=== PATIENT | male | born 1945 | race Caucasian/White ===

== ENCOUNTER 2019-04-11 11:19 | Observation (INO) | payer OTHER ==
[2019-04-11 12:31] LABS: Absolute Lymphocytes (CBC) 0.8 K/uL (0.7-4.9); Basophils % 0.9 % (0-1.3); Eosinophils % 0.8 % (0-4.4); Hematocrit 48.4 % (39.6-49.0); Lymphocytes % 7.5 % (15.3-44.8); MPV 9.3 fL (7.6-11.3); Monocytes % 6.2 % (3.3-12.3); RBC Red Blood Cell Count 5.21 M/uL (4.33-5.43)
[2019-04-11 12:44] LABS: Albumin 4.1 g/dL (3.4-5.0); Bilirubin Direct 0.1 mg/dL (0-0.2); Bilirubin Total 0.4 mg/dL (0.2-1.0); Magnesium 2.2 mg/dL (1.8-2.4); Potassium 4.4 mmol/L (3.5-5.1); Protein, Total 7.2 g/dL (6.4-8.2); Troponin (Emerg Dept Use Only) 0.07 ng/mL (0.0-0.045)
--- NOTE | 2019-04-11 13:07 | ER ---
Nurse's Notes [facility] Name: Dashawn Fernandes Jr Age: 73 yrs Sex: Male : 1945 Arrival Date: 04/11/2019 Time: 11:22 Bed 7 Private MD: Diagnosis: Fall on same level, unspecified;Weakness;Elevated troponin Presentation: 04/11 11:27 Presenting complaint: EMS states: pt tripped over a rug at home, fell forward onto iw knees, was unable to get himself up off the floor X 30 minutes, pt was out shopping at [employer] earlier today, normally ambulates with a cane, pt states his legs feel like they're buckling underneath him, pt denies pain to knees, denies hip pain. Care prior to arrival: Glucose check: 193. Mechanism of Injury: Fall from standing position. Trauma event details: Injury occurred in the [facility], Injury occurred: at home. Injury occurred: April 11, 2019. 11:27 Acuity: ADELA 3 iw 11:27 Method Of Arrival: EMS: [facility] iw 11:31 Transition of care: patient was not received from another setting of care. Onset of iw symptoms was April 11, 2019. Risk Assessment: Do you want to hurt yourself or someone else? Patient reports no desire to harm self or others. Initial Sepsis Screen: Does the patient meet any 2 criteria? No. Patient's initial sepsis screen is negative. Does the patient have a suspected source of infection? No. Patient's initial sepsis screen is negative. Triage Assessment: 11:31 General: Appears in no apparent distress. comfortable, Behavior is calm, cooperative, bp appropriate for age. Pain: Denies pain. EENT: No deficits noted. Neuro: Level of Consciousness is awake, alert, obeys commands, Oriented to person, place, time, situation, Appropriate for age Reports weakness GENERALIZED. Cardiovascular: No deficits noted. Respiratory: Airway is patent Respiratory effort is even, unlabored, Respiratory pattern is regular, symmetrical. GI: No signs and/or symptoms were reported involving the gastrointestinal system. : No signs and/or symptoms were reported regarding the genitourinary system. Derm: No deficits noted. Musculoskeletal: No deficits noted. Trauma Activation: Not Applicable Physician: ED Physician; Name: ; Notified At: ; Arrived At: Physician: General Surgeon; Name: ; Notified At: ; Arrived At: Physician: Radiology; Name: ; Notified At: ; Arrived At: Physician: Respiratory; Name: ; Notified At: ; Arrived At: Physician: Lab; Name: ; Notified At: ; Arrived At: Historical: - Allergies: :31 No Known Allergies; iw - Home Meds: 13:09 clopidogrel 75 mg oral tab 1 tab once daily [Active]; Metoprolol Tartrate Oral iw [Active]; Metformin Oral [Active]; Simvastatin Oral [Active]; 13:39 tamsulosin oral oral [Active]; iw - PMHx: 12:21 Diabetes - NIDDM; Hypertension; Myocardial infarction; bp - PSHx: 12:21 Heart stents; bp - Immunization history:: Adult Immunizations up to date. - Social history:: Smoking status: Patient/guardian denies using tobacco. - Ebola Screening: : No symptoms or risks identified at this time. Screenin:10 Abuse screen: Denies threats or abuse. Denies injuries from another. Nutritional bp screening: No deficits noted. Tuberculosis screening: No symptoms or risk factors identified. Fall Risk None identified. Assessment: 11:31 General: SEE TRIAGE NOTE. bp Vital Signs: 11:30 BP 130 / 61; Pulse 90; Resp 16; Temp 98.3; Pulse Ox 95% on R/A; Weight 95.25 kg; Height iw 6 ft. 1 in. (185.42 cm); Pain 0/10; 12:00 BP 127 / 81; Pulse 91; Resp 16; Pulse Ox 95% ; bp 12:17 BP 141 / 83 Supine; Pulse 79; bp 12:20 BP 136 / 77 Sitting; Pulse 86; bp 11:30 Body Mass Index 27.71 (95.25 kg, 185.42 cm) iw [place] Coma Score: 11:30 Eye Response: spontaneous(4). Verbal Response: oriented(5). Motor Response: obeys iw commands(6). Total: 15. Trauma Score (Adult): 11:30 Eye Response: spontaneous(1); Verbal Response: oriented(1); Motor Response: obeys iw commands(2); Systolic BP: > 89 mm Hg(4); Respiratory Rate: 10 to 29 per min(4); [place] Score: 15; Trauma Score: 12 ED Course: 11: Patient arrived in ED. aj 11:23 Gunnar Graf, SOPHIE is PHCP. pm1 11:23 Hardy Tim MD is Attending Physician. pm1 11:30 Triage completed. iw 11:31 Arm band placed on. iw 11:43 Ha Hdz, RN is Primary Nurse. bp 12:07 Inserted saline lock: 20 gauge in right antecubital area, using aseptic technique. bp Blood collected. 12:10 Patient has correct armband on for positive identification. Placed in gown. Bed in low bp position. Call light in reach. Side rails up X2. 12:56 XRAY Chest (1 view) In Process Unspecified. EDMS 13:00 Antonio Guzman DO is Hospitalizing Provider. pm1 13:[address] vm2 13:35 CT completed. Patient tolerated procedure well. Patient moved back from CT. mw3 14:12 No provider procedures requiring assistance completed. Patient admitted, IV remains in bp place. Administered Medications: 13:00 Drug: Aspirin 325 mg Route: PO; bp 14:50 Follow up: Response: No adverse reaction bp 13:00 Drug: Lovenox 1 mg/kg Route: Sub-Q; Site: right lower abdomen; bp 14:50 Follow up: Response: No adverse reaction bp Outcome: 13:06 Decision to Hospitalize by Provider. pm1 14:13 Condition: stable bp 14:13 Instructed on the need for admit. 14:49 Admitted to Tele accompanied by tech, family with patient, via wheelchair, room 430, bp with chart, Report called to CHRYSTAL CHATMAN 15:03 Patient left the ED. bp Signatures: Dispatcher [employer] EDMS Lacey Barahona RN RN aj Williams, Irene, RN RN iw Gunnar Graf, SOPHIE NEWS AGENT pm1 Yen Gordillo vm2 Ha Hdz, LURDES CHATMAN bp Annette Razo mw3 Corrections: (The following items were deleted from the chart) 12:09 11:31 BP 127 / 81; Pulse 91bpm; Resp 16bpm; Pulse Ox 95%; bp bp 13:58 13:00 Lovenox 1 mg/kg Sub-Q in right lower abdomen bp bp
--- NOTE | 2019-04-11 13:08 | EDPHYS ---
Physician Documentation [facility] Name: Dashawn Fernandes Jr Age: 73 yrs Sex: Male : 1945 Arrival Date: 04/11/2019 Time: 11:22 Bed 7 Private MD: ED Physician Hardy Tim HPI: 04/11 11:59 This 73 yrs old Male presents to ER via EMS with complaints of Fall Injury. pm1 11:59 Details of fall: The patient fell from an upright position, while walking. Onset: The pm1 symptoms/episode began/occurred just prior to arrival. Associated injuries: The patient sustained no obvious injury, Patient landed on both knee and stopped his fall with both hands. Patient is not complaining of any pain and FROM intact to knees hands and wrist. Severity of symptoms: in the emergency department the symptoms a " 0" out of "10". The patient has been recently seen by a physician: Dr. Romo for check up. Patient walking at home and fell. Patient is not certain if he tripped on his rug. Patient landed on his knees and stopped fall with hands. No headache, head injury, neck pain, LOC. Patient currently has not complaints of pain. Patient contacted the EMS because he was not able to get up after his fall. Patient had to crawl to the phone. It took him 30 minutes. Patient reports that when he tried to stand up both of his knees would just buckle from weakness. Historical: - Allergies: 11:31 No Known Allergies; iw - Home Meds: 13:09 clopidogrel 75 mg oral tab 1 tab once daily [Active]; Metoprolol Tartrate Oral iw [Active]; Metformin Oral [Active]; Simvastatin Oral [Active]; 13:39 tamsulosin oral oral [Active]; iw - PMHx: 12:21 Diabetes - NIDDM; Hypertension; Myocardial infarction; bp - PSHx: 12:21 Heart stents; bp - Immunization history:: Adult Immunizations up to date. - Social history:: Smoking status: Patient/guardian denies using tobacco. - Ebola Screening: : No symptoms or risks identified at this time. ROS: 12:35 Constitutional: Negative for fever, chills, and weight loss, Eyes: Negative for injury, pm1 pain, redness, and discharge, ENT: Negative for injury, pain, and discharge, Neck: Negative for injury, pain, and swelling, Cardiovascular: Negative for chest pain, palpitations, and edema, Respiratory: Negative for shortness of breath, cough, wheezing, and pleuritic chest pain, Abdomen/GI: Negative for abdominal pain, nausea, vomiting, diarrhea, and constipation, Back: Negative for injury and pain, : Negative for injury, bleeding, discharge, and swelling, MS/Extremity: Negative for injury and deformity, Skin: Negative for injury, rash, and discoloration. 12:35 Neuro: Positive for weakness, of the right knee and left knee. Exam: 12:35 Constitutional: This is a well developed, well nourished patient who is awake, alert, pm1 and in no acute distress. Head/Face: Normocephalic, atraumatic. Eyes: Pupils equal round and reactive to light, extra-ocular motions intact. Lids and lashes normal. Conjunctiva and sclera are non-icteric and not injected. Cornea within normal limits. Periorbital areas with no swelling, redness, or edema. ENT: Nares patent. No nasal discharge, no septal abnormalities noted. Tympanic membranes are normal and external auditory canals are clear. Oropharynx with no redness, swelling, or masses, exudates, or evidence of obstruction, uvula midline. Mucous membranes moist. Neck: Trachea midline, no thyromegaly or masses palpated, and no cervical lymphadenopathy. Supple, full range of motion without nuchal rigidity, or vertebral point tenderness. No Meningismus. Chest/axilla: Normal chest wall appearance and motion. Nontender with no deformity. No lesions are appreciated. Cardiovascular: Regular rate and rhythm with a normal S1 and S2. No gallops, murmurs, or rubs. No pulse deficits. Respiratory: Lungs have equal breath sounds bilaterally, clear to auscultation and percussion. No rales, rhonchi or wheezes noted. No increased work of breathing, no retractions or nasal flaring. Abdomen/GI: Soft, non-tender, with normal bowel sounds. No distension or tympany. No guarding or rebound. No evidence of tenderness throughout. Back: No spinal tenderness. No costovertebral tenderness. Full range of motion. Skin: Warm, dry with normal turgor. Normal color with no rashes, no lesions, and no evidence of cellulitis. MS/ Extremity: Pulses equal, no cyanosis. Neurovascular intact. Full, normal range of motion. 12:35 Neuro: Orientation: is normal, Motor: is normal, moves all fours. Vital Signs: 11:30 BP 130 / 61; Pulse 90; Resp 16; Temp 98.3; Pulse Ox 95% on R/A; Weight 95.25 kg; Height iw 6 ft. 1 in. (185.42 cm); Pain 0/10; 12:00 BP 127 / 81; Pulse 91; Resp 16; Pulse Ox 95% ; bp 12:17 BP 141 / 83 Supine; Pulse 79; bp 12:20 BP 136 / 77 Sitting; Pulse 86; bp 11:30 Body Mass Index 27.71 (95.25 kg, 185.42 cm) iw [place] Coma Score: 11:30 Eye Response: spontaneous(4). Verbal Response: oriented(5). Motor Response: obeys iw commands(6). Total: 15. Trauma Score (Adult): 11:30 Eye Response: spontaneous(1); Verbal Response: oriented(1); Motor Response: obeys iw commands(2); Systolic BP: > 89 mm Hg(4); Respiratory Rate: 10 to 29 per min(4); [place] Score: 15; Trauma Score: 12 MDM: 11:33 Patient medically screened. pm1 12:56 Data reviewed: vital signs. Data interpreted: Pulse oximetry: on room air is 95 %. pm1 Interpretation: normal. Counseling: I had a detailed discussion with the patient and/or guardian regarding: the historical points, exam findings, and any diagnostic results supporting the discharge/admit diagnosis, lab results, radiology results, the need for outpatient follow up, to return to the emergency department if symptoms worsen or persist or if there are any questions or concerns that arise at home. 13:15 Physician consultation: Antonio Guzman DO was called at 13:10, was contacted at 13:12, pm1 regarding admission, patient's condition, would like further tests performed, CPK, in the emergency department to see patient at 13:12, Place in observation. 04/11 11:44 Order name: Basic Metabolic Panel; Complete Time: 12:45 pm1 04/11 11:44 Order name: CBC with Diff; Complete Time: 12:45 pm1 04/11 11:44 Order name: LFT's; Complete Time: 12:45 pm1 04/11 11:44 Order name: Magnesium; Complete Time: 12:45 pm1 04/11 11:44 Order name: NT PRO-BNP; Complete Time: 12:45 pm1 04/11 11:44 Order name: PT-INR; Complete Time: 12:34 pm1 04/11 11:44 Order name: Troponin (emerg Dept Use Only); Complete Time: 12:45 pm04/11 11:44 Order name: XRAY Chest (1 view); Complete Time: 13:13 pm04/11 11:44 Order name: EKG; Complete Time: 11:47 pm04/11 13:12 Order name: CPK; Complete Time: 14:01 pm04/11 13:18 Order name: CT Head Brain wo Cont pm04/11 13:49 Order name: CT; Complete Time: 14:01 EDMS 04/11 11:44 Order name: Cardiac monitoring; Complete Time: 11:46 pm04/11 11:44 Order name: EKG - Nurse/Tech; Complete Time: 12:35 pm04/11 11:44 Order name: IV Saline Lock; Complete Time: 12:20 pm04/11 11:44 Order name: Labs collected and sent; Complete Time: 12:20 pm04/11 11:44 Order name: O2 Per Protocol; Complete Time: 11:46 pm04/11 11:44 Order name: O2 Sat Monitoring; Complete Time: 11:46 pm04/11 11:44 Order name: Orthostatic Blood Pressure; Complete Time: 12:20 pm1 Administered Medications: 13:00 Drug: Aspirin 325 mg Route: PO; bp 14:50 Follow up: Response: No adverse reaction bp 13:00 Drug: Lovenox 1 mg/kg Route: Sub-Q; Site: right lower abdomen; bp 14:50 Follow up: Response: No adverse reaction bp Disposition: 19:00 Co-signature as Attending Physician, Hardy Tim MD. ma2 Disposition: 04/11/19 13:06 Hospitalization ordered by Antonio Guzman for Observation. Preliminary diagnosis are Elevated troponin, Fall on same level, unspecified, Weakness. - Bed requested for Telemetry/MedSurg (observation). - Status is Observation. bp - Condition is Stable. - Problem is new. - Symptoms have improved. UTI on Admission? No Signatures: Dispatcher [employer] Asuncion Downing, RN RN dw Annel Teresa, LURDES RN iw Gunnar Graf, GENERAL CLERK GENERAL CLERK pm1 Ha Hdz, RN RN bp Hardy Tim MD MD ma2 Corrections: (The following items were deleted from the chart) 13:13 13:06 Hospitalization Ordered by Antonio Megan CARD for Inpatient Admission. Preliminary pm1 diagnosis is Non-ST elevation (NSTEMI) myocardial infarctionFall on same level, unspecified; Weakness. Bed requested for Telemetry/MedSurg (Inpatient). Status is Inpatient Admission. Condition is Stable. Problem is new. Symptoms have improved. UTI on Admission? No. pm1 14:11 13:13 04/11/2019 13:06 Hospitalization Ordered by Antoino Megan CARD for Observation. dw Preliminary diagnosis is Elevated troponinFall on same level, unspecified; Weakness. Bed requested for Telemetry/MedSurg (observation). Status is Observation. Condition is Stable. Problem is new. Symptoms have improved. UTI on Admission? No. pm1 15:03 14:11 04/11/2019 13:06 Hospitalization Ordered by [facility] for Observation. bp Preliminary diagnosis is Elevated troponinFall on same level, unspecified; Weakness. Bed requested for Telemetry/MedSurg (observation). Status is Observation. Condition is Stable. Problem is new. Symptoms have improved. UTI on Admission? No. dw
--- NOTE | 2019-04-11 13:12 | RAD REPORT ---
EXAM DESCRIPTION: RAD - Chest Single View - 04/11/2019 12:56 pm CLINICAL HISTORY: Fall, chest pain COMPARISON: November 2011 TECHNIQUE: AP portable chest image was obtained 1211 hours . FINDINGS: Interstitial fibrotic lung pattern is present as a baseline. Pattern is not substantially different. No pulmonary contusion or acute lung parenchymal process suspected. Heart and vasculature are normal. No measurable pleural effusion and no pneumothorax. No acute bone findings seen. Prominen t right convex thoracic scoliosis noted. No acute aortic findings suspected. IMPRESSION: No acute cardiopulmonary process. Interstitial fibrotic lung pattern is similar to comparison.
[2019-04-11] MEDS ORDERED: ASPIRIN 325 MG TAB ONE (13:44)
[2019-04-11] MEDS ORDERED: ENOXAPARIN 100 MG/ML SYR SQ ONE (13:45)
--- NOTE | 2019-04-11 13:48 | RAD REPORT ---
EXAM DESCRIPTION: CT - Head Brain Wo Cont - 04/11/2019 1:34 pm CLINICAL HISTORY: Trip and fall, head injury COMPARISON: Radiation planning study September 2017 TECHNIQUE: Axial 5 mm thick images of the head were obtained without IV contrast. All CT scans are performed using dose optimization technique as appropriate and may include automated exposure control or mA/KV adjustment according to patient size. FINDINGS: No intracranial hemorrhage, mass, edema or shift of mid-line structures. No acute cortical based infarction. No cortical edema or sulcal effacement. Prominent atrophy and chronic ischemic maynor nges are present. Ventricles are in proportion to the amount of volume loss. Arterial and physiologic calcifications are present. There are postsurgical changes to the left mastoid air cells. Mastoid air cells and visualized portions of the paranasal sinuses are clear. No acute bony findings. IMPRESSION: No intracranial hemorrhage or edema. Prominent atrophy and chronic ischemic change. Ventricles are in proportion.
--- NOTE | 2019-04-11 13:53 | P.HP ---
Certification for Inpatient Patient admitted to: Observation With expected LOS: <2 Midnights Patient will require the following post-hospital care: Home Health Services Practitioner: I am a practitioner with admitting privileges, knowledge of patient current condition, hospital course, and medical plan of care. Services: Services provided to patient in accordance with Admission requirements found in Title 42 Section 412.3 of the Code of Federal Regulations Patient History Date of Service: 04/11/19 Primary Care Provider: Dr. Guerrero; Cardiology-Dr. Romo Reason for admission: Fall History of Present Illness: 73-year-old male presented to the emergency room after mechanical fall. Patient had gone to [place] this morning. When he came home he had a mechanical fall. He apparently tripped after shuffling his feet. He was not able to get up. He denied any syncope at the time. He denied any chest pain, nausea, palpitation or shortness of breath. He was able to get a hold of his phone and called EMS. EMS to come to the ER for further evaluation. The patient was evaluated the emergency room. He had some mild bruising to the needs. Orthostatics unremarkable. No significant EKG changes noted. Chest x- ray unremarkable. CBC unremarkable. Sodium 137, potassium 4.4, BUN is 16, creatinine 0.91 with a GFR of 82. Glucose 206. Troponin slightly elevated at 0.07. BNP 352. Due to the nature of findings patient was admitted for observation. When I saw the patient ER, he appeared comfortable. He denied any chest pain, shortness of breath. Patient with underlying CAD with prior stents, diabetes mellitus type 2, BPH, hypertension, tobacco abuse and hyperlipidemia. 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 He currently lives by himself. He is independent. - Family History Family History: Reviewed- Non-Contributory - Social History Smoking Status: Heavy Tobacco smoker (>10 cigarettes/day) Counseled patient to stop smoking for: less than 10 minutes Smoking therapy provided: Yes Patient receptive to therapy: Yes Alcohol use: No CD- Drugs: No Caffeine use: Yes Place of Residence: Home Review of Systems General: As per HPI Eyes: Unremarkable ENT: Unremarkable Respiratory: Unremarkable Cardiovascular: Unremarkable Gastrointestinal: Unremarkable Genitourinary: Unremarkable Musculoskeletal: Unremarkable Integumentary: Unremarkable Neurological: Unremarkable Lymphatics: Unremarkable Physical Examination - Physical Exam General: Alert, In no apparent distress, Oriented x3, Cooperative HEENT: Atraumatic, Normocephalic, PERRLA, Mucous membr. moist/pink Neck: Supple Respiratory: Clear to auscultation bilaterally, Normal air movement Cardiovascular: Normal pulses, Regular rate/rhythm Gastrointestinal: Normal bowel sounds, Soft and benign, Non-distended, No tenderness, No masses, No rebound, No guarding Musculoskeletal: No erythema, No tenderness, No warmth Integumentary: No tenderness/swelling, No erythema, No warmth, No cyanosis, Other (Slight bruising and abrasion to the knees) Neurological: Normal speech, Normal strength at 5/5 x4 extr, Normal tone, Normal affect - Studies Laboratory Data (last 24 hrs) 04/11/19 12:05: PT 11.8, INR 1.00 04/11/19 12:05: WBC 10.1, Hgb 15.8, Hct 48.4, Plt Count 211 04/11/19 12:05: Sodium 137, Potassium 4.4, BUN 16, Creatinine 0.91, Glucose 206 H, Magnesium 2.2, Total Bilirubin 0.4, AST 14 L, ALT 35, Alkaline Phosphatase 85 Assessment and Plan - Plan Impression: Mechanical fall Elevated troponin likely stress induced with history of CAD and prior stents Hypertension Diabetes mellitus type 2, non insulin dependent Hyperlipidemia BPH Tobacco abuse Plan: Mechanical fall: Patient suffered mechanical fall. No syncope noted. Orthostatics unremarkable. No evidence of fracture. Patient with slight elevation in troponin likely stress induced. Will check CPK. Will also check CT head. Patient will be observed. Will have physical therapy and occupational therapy assess patient. Patient may require home health and physical therapy at discharge. Will continue to monitor the patient closely. I will turn the service over to Dr. Guerrero tomorrow. I will go over the plan of care with him. Anticipate discharge home tomorrow if cleared by cardiology. Elevated troponin likely stress induced with history of CAD and prior stents: Mild elevation in troponin. Will monitor cardiac enzymes. Will consult cardiology to further evaluate. Will monitor closely. Hypertension: Continue with home medication metoprolol and lisinopril. Will monitor and address appropriately. Diabetes mellitus type 2, non insulin dependent: Will continue with a sliding scale and monitor Accu-Cheks. Hyperlipidemia: Resume home medication. BPH: Will need to obtain and restart home medication. Tobacco abuse: Education addressed in detail. Will provide nicotine patch as needed Discharge Plan: Home Plan to discharge in: 24 Hours - Advance Directives Does patient have a Living Will: No Does patient have a Durable POA for Healthcare: No - Code Status/Comfort Care Code Status Assessed: Yes (Patient is full code) Time Spent Managing Pts Care (In Minutes): 55
[2019-04-11] MEDS ORDERED: ONDANSETRON 4 MG/2 ML VIAL IV PRN (16:12)
[2019-04-11 16:26] VITALS: BMI 27.7
[2019-04-11] MEDS: INSULIN -REGULAR HUMAN 50 UNIT/0.5 ML ML SQ SCH ×2 (16:30→20:54)
[2019-04-11 17:24] LABS: Urine Appearance CLEAR; Urine Bilirubin NEGATIVE (NEG); Urine Blood NEGATIVE (NEG); Urine Color YELLOW; Urine Glucose NEGATIVE (NEG); Urine Protein 2+ (NEG)
[2019-04-11 17:25] LABS: Urine Microscopic Reflex ORDER UMIC
[2019-04-11 17:32] LABS: Urine Bacteria <20 /HPF (NONE SEEN); Urine Culture Reflex Order NOT NEEDED; Urine Mucus SLIGHT /HPF (NONE SEEN); Urine RBC <5 /HPF (NONE SEEN)
[2019-04-11] MEDS: METOPROLOL TAR 25 MG TAB PO SCH (17:56)
[2019-04-11 20:26] LABS: CKMB Creatine Kinase MB 3.1 ng/mL (0.3-3.6); Troponin I 0.18 ng/mL (0.0-0.045)
[2019-04-11] MEDS ORDERED: ATORVASTATIN 10 MG TAB PO SCH (21:00)
[2019-04-11 21:26] VITALS: O2SAT 93
[2019-04-12] MEDS: ACETAMINOPHEN 500 MG TAB PO PRN ×2 (00:17→05:27)
[2019-04-12] MEDS: METOPROLOL TAR 25 MG TAB PO SCH (05:27)
[2019-04-12 05:28] LABS: CKMB Creatine Kinase MB 3.1 ng/mL (0.3-3.6); Troponin I 0.11 ng/mL (0.0-0.045)
[2019-04-12 05:33] LABS: BUN Blood Urea Nitrogen 10 mg/dL (7-18); Bicarbonate 27 mmol/L (21-32); Glucose Level 152 mg/dL (74-106); HDL Cholesterol 32 mg/dL (40-60); LDL Cholesterol, Calculated 43 (<130); Magnesium 2.1 mg/dL (1.8-2.4); Potassium 3.7 mmol/L (3.5-5.1); Sodium Level 138 mmol/L (136-145)
[2019-04-12] MEDS: INSULIN -REGULAR HUMAN 50 UNIT/0.5 ML ML SQ SCH ×2 (07:30→12:10)
[2019-04-12] MEDS ORDERED: POTASSIUM CL SA 10 MEQ TAB PO ONE (08:00)
[2019-04-12] MEDS ORDERED: ENOXAPARIN 40 MG/0.4 ML SQ SCH (09:00)
[2019-04-12] MEDS ORDERED: NICOTINE 21 MG/PAT TD SCH (09:00)
[2019-04-12] MEDS ORDERED: CLOPIDOGREL 75 MG TABLET PO SCH (09:00)
[2019-04-12] MEDS ORDERED: LISINOPRIL 10 MG TAB PO SCH (09:00)
--- NOTE | 2019-04-12 11:48 | P.DS ---
Admission Date: 04/11/19 Discharge Date: 04/12/19 Primary Care Provider: Dr. Guerrero; Cardiology-Dr. Romo Disposition: DC HOME/HOME HEALTH CARE Discharge Condition: GOOD Reason for Admission: Fall Consultations: Cardiology-Dr. Jackson Procedures: CXR: FINDINGS: Interstitial fibrotic lung pattern is present as a baseline. Pattern is not substantially different. No pulmonary contusion or acute lung parenchymal process suspected. Heart and vasculature are normal. No measurable pleural effusion and no pneumothorax. No acute bone findings seen. Prominent right convex thoracic scoliosis noted. No acute aortic findings suspected. IMPRESSION: No acute cardiopulmonary process. Interstitial fibrotic lung pattern is similar to comparison CT head: FINDINGS: No intracranial hemorrhage, mass, edema or shift of mid-line structures. No acute cortical based infarction. No cortical edema or sulcal effacement. Prominent atrophy and chronic ischemic changes are present. Ventricles are in proportion to the amount of volume loss. Arterial and physiologic calcifications are present. There are postsurgical changes to the left mastoid air cells. Mastoid air cells and visualized portions of the paranasal sinuses are clear. No acute bony findings. IMPRESSION: No intracranial hemorrhage or edema. Prominent atrophy and chronic ischemic change. Ventricles are in proportion. Medical Problem List: Mechanical fall Elevated troponin likely stress induced with history of CAD and prior stents Hypertension Hyperlipidemia BPH Tobacco abuse Brief History of Present Illness: 73-year-old male presented to the emergency room after mechanical fall. Patient had gone to [facility] this morning. When he came home he had a mechanical fall. He apparently tripped after shuffling his feet. He was not able to get up. He denied any syncope at the time. He denied any chest pain, nausea, palpitation or shortness of breath. He was able to get a hold of his phone and called EMS. EMS to come to the ER for further evaluation. The patient was evaluated the emergency room. He had some mild bruising to the needs. Orthostatics unremarkable. No significant EKG changes noted. Chest x- ray unremarkable. CBC unremarkable. Sodium 137, potassium 4.4, BUN is 16, creatinine 0.91 with a GFR of 82. Glucose 206. Troponin slightly elevated at 0.07. BNP 352. Due to the nature of findings patient was admitted for observation. When I saw the patient ER, he appeared comfortable. He denied any chest pain, shortness of breath. Patient with underlying CAD with prior stents, diabetes mellitus type 2, BPH, hypertension, tobacco abuse and hyperlipidemia. Hospital Course: Patient presented with a mechanical fall. Patient was not orthostatic. No syncope noted. No chest pain or shortness of breath identified. CT head unremarkable. No injury noted. Patient was observed Overnite due to slight elevation in his troponin. This was monitored closely. No EKG changes noted. Cardiology was consulted to further evaluate. No need for cardiac intervention. Patient without chest pain, shortness of breath. Family plans to get a [employer] alert bracelet for the patient as an outpatient. Recommend follow up with cardiology in 1-2 weeks to follow up this hospitalization. Patient will follow up with his PCP in 1 week. At discharge she will continue with Plavix 75 mg daily. Fall precautions in place. Patient will continue with home health and physical therapy at discharge. Patient with underlying hypertension. At discharge he will continue with metoprolol 50 mg daily and lisinopril 20 mg daily. Recommend blood pressures to remain less than 150/80. Patient with hyperlipidemia. Patient will continue with Zocor 40 mg daily. Patient with BPH. At discharge he will continue with Flomax 0.4 mg daily. Tobacco cessation education provided. Vital Signs/Physical Exam: Temp Pulse Resp BP Pulse Ox 97.1 F 75 18 154/90 H 99 04/12/19 08:00 04/12/19 09:48 04/12/19 08:00 04/12/19 09:48 04/12/19 08:00 General: Alert, In no apparent distress, Oriented x3, Cooperative HEENT: Atraumatic Neck: Supple Respiratory: Clear to auscultation bilaterally, Normal air movement Cardiovascular: Normal pulses, Regular rate/rhythm Gastrointestinal: Normal bowel sounds, Soft and benign, Non-distended, No tenderness, No masses, No rebound, No guarding Musculoskeletal: No erythema, No tenderness, No warmth Integumentary: No tenderness/swelling, No erythema, No warmth, No cyanosis Neurological: Normal speech, Normal strength at 5/5 x4 extr, Normal tone, Normal affect Laboratory Data at Discharge: WBC 10.1 K/uL (4.3-10.9) 04/11/19 12:05 Hgb 15.8 g/dL (13.6-17.9) 04/11/19 12:05 Hct 48.4 % (39.6-49.0) 04/11/19 12:05 Plt Count 211 K/uL (152-406) 04/11/19 12:05 PT 11.8 SECONDS (9.5-12.5) 04/11/19 12:05 INR 1.00 04/11/19 12:05 Sodium 138 mmol/L (136-145) 04/12/19 03:58 Potassium 3.7 mmol/L (3.5-5.1) 04/12/19 03:58 BUN 10 mg/dL (7-18) 04/12/19 03:58 Creatinine 0.71 mg/dL (0.55-1.3) 04/12/19 03:58 Glucose 152 mg/dL (74-106) H 04/12/19 03:58 Magnesium 2.1 mg/dL (1.8-2.4) 04/12/19 03:58 Total Bilirubin 0.4 mg/dL (0.2-1.0) 04/11/19 12:05 AST 14 U/L (15-37) L 04/11/19 12:05 ALT 35 U/L (12-78) 04/11/19 12:05 Alkaline Phosphatase 85 U/L (45-117) 04/11/19 12:05 Troponin I 0.11 ng/mL (0.0-0.045) H 04/12/19 03:58 Triglycerides 114 mg/dL (<150) 04/12/19 03:58 Cholesterol 98 mg/dL (<200) 04/12/19 03:58 HDL Cholesterol 32 mg/dL (40-60) L 04/12/19 03:58 Cholesterol/HDL Ratio 3.06 04/12/19 03:58 Home Medications: Clopidogrel Bisulfate [Plavix*] 75 mg PO DAILY 04/11/19 Lisinopril [Prinivil*] 20 mg PO DAILY 04/11/19 Metoprolol Tartrate [Lopressor*] 50 mg PO DAILY 04/11/19 Simvastatin 40 mg PO DAILY AT SUPPER 04/11/19 Tamsulosin [Flomax*] 0.4 mg PO DAILY 04/11/19 Patient Discharge Instructions: 1. Recommend follow up with PCP in 1 week to follow up this hospitalization. 2. Patient presented with a mechanical fall. Patient was not orthostatic. No syncope noted. No chest pain or shortness of breath identified. CT head unremarkable. No injury noted. Patient was observed Overnite due to slight elevation in his troponin. This was monitored closely. No EKG changes noted. Cardiology was consulted to further evaluate. No need for cardiac intervention. Patient without chest pain, shortness of breath. Family plans to get a med alert bracelet for the patient as an outpatient. Recommend follow up with cardiology in 1-2 weeks to follow up this hospitalization. Patient will follow up with his PCP in 1 week. At discharge he will continue with Plavix 75 mg daily. Fall precautions to remain in place. Patient will continue with home health and physical therapy at discharge. 3. Patient with underlying hypertension. At discharge he will continue with metoprolol 50 mg daily and lisinopril 20 mg daily. Recommend blood pressures to remain less than 150/80. 4. Patient with hyperlipidemia. Patient will continue with Zocor 40 mg daily. 5. Patient with BPH. At discharge he will continue with Flomax 0.4 mg daily. 6. Tobacco cessation education provided. Diet: AHA Activity: Fall precautions Time spent managing pt's care (in minutes): 55
[2019-04-12 12:06] VITALS: BP 147/83; TEMP 97
--- NOTE | 2019-04-12 12:54 | EKG ---
Test Date: 2019-04-11 Test Time: 12:30:29 Certified Retinal Angiographer: BP MEASUREMENT RESULTS: Intervals: Rate: 83 VA: 198 QRSD: 80 QT: 350 QTc: 411 [place]: P: 30 VA: 198 QRS: -20 T: 52 INTERPRETIVE STATEMENTS: Sinus rhythm with occasional premature ventricular complexes Inferior infarct, age undetermined Anteroseptal infarct, age undetermined Abnormal ECG Compared to ECG 02/16/2008 04:51:02 Ventricular premature complex(es) now present Myocardial infarct finding still present Electronically Signed On 04-12-19 12:49:58 CDT by Andrew Jackson
--- NOTE | 2019-04-13 11:34 | CON ---
Date of Consultation: 04/12/2019 Reason For Consultation: Hypertension and abnormal troponin. History Of Present Illness: Mr. Fernandes is a 73-year-old male, who sees Dr. Romo in the office. He has a history of benign prostatic hypertrophy, hypertension, dyslipidemia, and coronary artery diseas e. He to me did not really have any chest pain, but he was walking back to his house and when he got to his door from his yard, he felt very weak and fell down to his knees and had a difficult time get ting up. He did not have any chest pain. No nausea, vomiting, or diaphoresis. Denied any PND, orth opnea, or pedal edema. Denied any palpitation. Denied any actual syncope. He was working outside i n the heat. Allergies: NONE. Review of Systems: Negative. Social History: Negative. Family History: Noncontributory. Medications: At home include Plavix, lisinopril, Flomax, metoprolol, and Zocor. Physical Examination: Vital Signs: Stable. He was afebrile. He was in a sinus rhythm. HEENT: Negative. Neck: Supple. No bruit, lymphadenopathy, JVD, or thyromegaly. Chest: Clear to auscultation and percussion. Cardiac: Revealed a regular rhythm and rate with what sounds like an aortic sclerosis murmur. No ga llops or rubs. Abdomen: Benign. Extremities: Revealed no clubbing, cyanosis, or edema. Diagnostic Data: His EKG was nonspecific. Glucose was 189. BNP 362. Troponin was 0.11 and it was decreasing. Impression And Plan: Elevated troponin of unknown significance, may be secondary to chronic coronary artery disease, but I do not think we are dealing with acute coronary syndrome here. I think he may have had an episode of orthostatic hypotension which made him fall while working in the heat. He ta kes multiple medications including antihypertensive medication and Flomax, which may exacerbate ortho static hypotension. Echocardiogram is pending and I agree with that. It may be reasonable to do an event monitor on him and make sure he does not have any arrhythmia and I will check in the office to see when his last carotid Doppler was. As far as I am concerned he can go home if his echocardiogram is normal and whenever it is okay with Dr. Guzman and we will see him in the office soon as an outpa tient. No changes in his medical therapy for now. He was instructed to avoid being outside in the h eat. CHARLEEN/JUHI Voice ID: [id number] Report ID: [id number]
== END 2019-04-12 13:48 | disposition home health service (06) ==
LOC: ER 11:19 → ERHOLD 13:21 → 4TH 14:43
PROVIDERS: ADMIT Family Medicine; ATTEND Family Medicine
DX: R79.89 Other specified abnormal findings of blood chemistry (principal); I10 Essential (primary) hypertension; N40.0 Benign prostatic hyperplasia without lower urinary tract symptoms; E78.5 Hyperlipidemia, unspecified; F17.210 Nicotine dependence, cigarettes, uncomplicated; W17.89XA Other fall from one level to another, initial encounter; Y92.009 Unspecified place in unspecified non-institutional (private) residence as the place of occurrence of the external cause
CPT/HCPCS: 93005; 85025; 80048 ×2; 36415; 83735 ×2; 82550 ×3; 85610; 80061; 82962 ×4; 80076; 84443; 84484 ×3; 82553 ×2; 84439; 83880; 70450; 71045; 97163; 96372; 99285; J1650 ×2; G0378 ×2; 81003; 81015

== ENCOUNTER 2020-04-07 02:21 | Inpatient (IN) | payer OTHER ==
[2020-04-07 02:53] LABS: Absolute Lymphocytes (CBC) 1.5 K/uL (0.7-4.9); Basophils % 0.9 % (0-1.3); Hematocrit 45.1 % (39.6-49.0); Lymphocytes % 8.9 % (15.3-44.8); MPV 9.6 fL (7.6-11.3); RBC Red Blood Cell Count 4.96 M/uL (4.33-5.43)
[2020-04-07 03:00] LABS: Protime INR 0.97
[2020-04-07 03:13] LABS: ALT/SGPT 44 U/L (12-78); AST/SGOT 23 U/L (15-37); Alkaline Phosphatase 112 U/L (45-117); BUN Blood Urea Nitrogen 23 mg/dL (7-18); Bicarbonate 24 mmol/L (21-32); Bilirubin Direct 0.1 mg/dL (0-0.2); Bilirubin Total 0.5 mg/dL (0.2-1.0); Ferritin 106.4 ng/mL (26-388); Glucose Level 256 mg/dL (74-106); Lipase 119 U/L (73-393); Magnesium 1.9 mg/dL (1.8-2.4); NT PRO-BNP 3647 pg/mL (<125); Potassium 3.7 mmol/L (3.5-5.1); Protein, Total 7.8 g/dL (6.4-8.2); Sodium Level 138 mmol/L (136-145); Troponin (Emerg Dept Use Only) < 0.02 ng/mL (0.0-0.045)
[2020-04-07] MEDS ORDERED: dexAMETHasone 10 MG/ML VIAL ONE (03:21)
[2020-04-07] MEDS ORDERED: AZITHROMYCIN 500 MG INJ IVPB ONE (03:21)
[2020-04-07] MEDS ORDERED: NA CHLORIDE 0.9% 250 ML ONE (03:21)
[2020-04-07] MEDS ORDERED: ALBUTEROL INHALER 60 PUFF/8 GM IH ONE (03:22)
[2020-04-07 03:24] LABS: C-Reactive Protein < 2.90 mg/L (<3.00)
[2020-04-07] MEDS ORDERED: ALBUTEROL INHALER 60 PUFF/8 GM IH PRN (03:40)
[2020-04-07] MEDS ORDERED: NA CHLORIDE 0.9% 1,000 ML IV SCH (04:00)
--- NOTE | 2020-04-07 04:24 | EDPHYS ---
Physician Documentation [facility] Name: Dashawn Fernandes Jr Age: 74 yrs Sex: Male : 1945 Arrival Date: 04/07/2020 Time: 02:23 Bed 4 Private MD: ED Physician Khai Chatterjee HPI: 04/07 04:25 This 74 yrs old Male presents to ER via EMS with complaints of SOB. tw4 04:25 The patient has shortness of breath at rest, that woke him/her from sleep. Onset: The tw4 symptoms/episode began/occurred just prior to arrival, 2 hour(s) ago. Duration: The symptoms are continuous, and are unchanged since they started. The patient's shortness of breath has no apparent modifying factors. Associated signs and symptoms: Pertinent positives: productive cough. Severity of symptoms: At their worst the symptoms were moderate. The patient has not experienced similar symptoms in the past. Historical: - Allergies: 02:36 No Known Allergies; fc - Home Meds: 02:36 clopidogrel 75 mg Oral tab 1 tab once daily [Active]; Metformin Oral [Active]; fc Metoprolol Tartrate Oral [Active]; Simvastatin Oral [Active]; tamsulosin Oral [Active]; - PMHx: 02:36 Diabetes - NIDDM; Hypertension; Myocardial infarction; fc - PSHx: 02:36 Heart stents; fc - Immunization history:: Last tetanus immunization: unknown, Pneumococcal vaccine is up to date, Flu vaccine is up to date. - Social history:: Smoking status: Patient reports the use of cigarette tobacco products, smokes one-half pack cigarettes per day, Patient/guardian denies using alcohol, street drugs. ROS: 04:25 Constitutional: Negative for fever, chills, and weight loss, Eyes: Negative for injury, tw4 pain, redness, and discharge, Cardiovascular: Negative for chest pain, palpitations, and edema, Abdomen/GI: Negative for abdominal pain, nausea, vomiting, diarrhea, and constipation, Back: Negative for injury and pain, MS/Extremity: Negative for injury and deformity, Skin: Negative for injury, rash, and discoloration, Neuro: Negative for headache, weakness, numbness, tingling, and seizure. 04:25 Respiratory: Positive for cough, shortness of breath, at rest. Exam: 04:25 Head/Face: Normocephalic, atraumatic. Eyes: Pupils equal round and reactive to light, tw4 extra-ocular motions intact. Lids and lashes normal. Conjunctiva and sclera are non-icteric and not injected. Cornea within normal limits. Periorbital areas with no swelling, redness, or edema. Chest/axilla: Normal chest wall appearance and motion. Nontender with no deformity. No lesions are appreciated. 04:25 Abdomen/GI: Soft, non-tender, with normal bowel sounds. No distension or tympany. No guarding or rebound. No evidence of tenderness throughout. Back: No spinal tenderness. No costovertebral tenderness. Full range of motion. MS/ Extremity: Pulses equal, no cyanosis. Neurovascular intact. Full, normal range of motion. Neuro: Awake and alert, GCS 15, oriented to person, place, time, and situation. Cranial nerves II-XII grossly intact. Motor strength 5/5 in all extremities. Sensory grossly intact. Cerebellar exam normal. Normal gait. 04:25 Constitutional: The patient appears alert, awake, diaphoretic, in obvious distress, moderately distressed. 04:25 Cardiovascular: Rate: tachycardic, Rhythm: regular. 04:25 Respiratory: moderate respiratory distress is noted, Respirations: labored breathing, Breath sounds: decreased breath sounds, are located in both bases. Vital Signs: 02:18 BP 204 / 124; Pulse 121; Resp 36; Pulse Ox 88% on R/A; Weight 104.33 kg (R); Height 6 fc ft. 1 in. (185.42 cm) (R); Pain 0/10; 02:34 Pulse Ox 98% on 100% Non-rebreather mask; fc 02:42 BP 171 / 98; Pulse 105; Resp 23 S; Pulse Ox 95% on 15% Non-rebreather mask; jd3 03:36 BP 146 / 92; Pulse 100; Resp 24 S; Pulse Ox 97% on 15% Non-rebreather mask; jd3 04:57 BP 161 / 97; Pulse 86; Resp 20 S; Pulse Ox 99% on 10% Non-rebreather mask; jd3 05:13 BP 156 / 90; Pulse 93; Resp 19 S; Pulse Ox 95% on 5 lpm NC; jd3 02:18 Body Mass Index 30.34 (104.33 kg, 185.42 cm) fc MDM: 02:23 Patient medically screened. snw 04:21 Differential diagnosis: asthma, Bronchitis CHF exacerbation, Chronic Obstructive tw4 Pulmonary Disease Myocardial Infarction pneumonia, pulmonary edema, Pulmonary Embolism reactive airway disease, Sepsis. Antibiotic administration: Zithromax is given. Data reviewed: vital signs, nurses notes. Data interpreted: Pulse oximetry: Interpretation: normal. Test interpretation: by ED physician or midlevel provider: ECG. Counseling: I had a detailed discussion with the patient and/or guardian regarding: the historical points, exam findings, and any diagnostic results supporting the discharge/admit diagnosis, lab results, radiology results. Physician consultation: Hardy Hogue MD was contacted at 03:17, and will see patient in inpatient room. Physician consultation: regarding admission, to the telemetry unit. Special discussion:. 04/07 02:24 Order name: CBC with Diff snw 04/07 02:28 Order name: Blood Culture Adult (2) snw 04/07 02:28 Order name: BMP snw 04/07 02:28 Order name: C-Reactive Protein snw 04/07 02:28 Order name: CBC with Diff snw 04/07 02:28 Order name: COVID-19 snw 04/07 02:28 Order name: D-Dimer snw 04/07 02:28 Order name: Ferritin snw 04/07 02:28 Order name: Flu snw 04/07 02:28 Order name: Lactate snw 04/07 02:28 Order name: LFT's snw 04/07 02:28 Order name: Lipase; Complete Time: 04:18 snw 04/07 02:28 Order name: Procalcitonin snw 04/07 02:28 Order name: PT-INR; Complete Time: 03:12 snw 04/07 03:12 Interpretation: Within normal limits: PT 11.5. tw4 04/07 02:28 Order name: Ptt, Activated; Complete Time: 03:12 snw 04/07 03:12 Interpretation: Within normal limits: PTT 28.5. tw4 04/07 02:28 Order name: Strep snw 04/07 02:28 Order name: Troponin (emerg Dept Use Only); Complete Time: 04:18 snw 04/07 02:28 Order name: Blood Culture EDIN 04/07 02:28 Order name: Basic Metabolic Panel; Complete Time: 04:18 EDMS 04/07 02:28 Order name: C-Reactive Protein; Complete Time: 04:18 EDMS 04/07 02:28 Order name: CBC with Automated Diff; Complete Time: 03:12 EDMS 04/07 03:12 Interpretation: Normal except: WBC 16.4; LYM% 8.9; LIZBETH% 83.2; NEUT A 13.7. tw4 04/07 02:28 Order name: CORONAVIRUS EDMS 04/07 02:28 Order name: D-Dimer; Complete Time: 03:12 EDMS 04/07 03:12 Interpretation: Abnormal: D-DIMER 5. tw4 04/07 02:28 Order name: Ferritin; Complete Time: 04:18 EDMS 04/07 02:24 Order name: EKG; Complete Time: 02:25 snw 04/07 02:24 Order name: Cardiac monitoring; Complete Time: 02:42 snw 04/07 02:24 Order name: EKG - Nurse/Tech; Complete Time: 02:42 snw 04/07 02:24 Order name: IV Saline Lock; Complete Time: 02:42 snw 04/07 02:24 Order name: Labs collected and sent; Complete Time: 02:42 snw 04/07 02:24 Order name: O2 Per Protocol; Complete Time: 02:42 snw 04/07 02:28 Order name: CXR XRAY snw 04/07 02:28 Order name: EKG; Complete Time: 02:29 snw 04/07 02:28 Order name: Influenza Screen (A EDMS 04/07 02:28 Order name: Lactate; Complete Time: 03:12 EDMS 04/07 03:12 Interpretation: Within normal limits: LAC 1.7. tw4 04/07 02:28 Order name: Liver (Hepatic) Function; Complete Time: 04:18 EDMS 04/07 02:52 Order name: NT PRO-BNP; Complete Time: 04:18 EDMS 04/07 02:52 Order name: Magnesium; Complete Time: 04:18 EDMS 04/07 03:43 Order name: Heart Healthy EDMS 04/07 03:43 Order name: Lipid Profile EDMS 04/07 03:43 Order name: Lipid Profile EDMS 04/07 03:45 Order name: Cortisol EDMS 04/07 03:45 Order name: CBC with Automated Diff EDMS 04/07 03:45 Order name: Comprehensive Metabolic Panel EDMS 04/07 03:45 Order name: D-Dimer EDMS 04/07 03:45 Order name: Ferritin EDMS 04/07 03:45 Order name: Lactate EDMS 04/07 03:45 Order name: Lactic Dehydrogenase EDMS 04/07 03:46 Order name: Troponin I EDMS 04/07 04:21 Order name: ABG jd3 04/07 04:52 Order name: Throat Culture EDMS 04/07 02:24 Order name: O2 Sat Monitoring; Complete Time: 02:42 snw 04/07 02:28 Order name: Cardiac monitoring; Complete Time: 02:41 snw 04/07 02:28 Order name: Document PUI#; Complete Time: 02:41 snw 04/07 02:28 Order name: Droplet/Contact Precautions; Complete Time: 02:41 snw 04/07 02:28 Order name: EKG - Nurse/Tech; Complete Time: 02:42 snw 04/07 02:28 Order name: IV Start; Complete Time: 02:42 snw 04/07 02:28 Order name: Labs collected and sent; Complete Time: 02:42 snw 04/07 02:28 Order name: Notify Health Dept [phone]/ ; Complete Time: 02:42 snw 04/07 02:28 Order name: O2 Per Protocol; Complete Time: 02:42 snw 04/07 02:28 Order name: O2 Sat Monitoring; Complete Time: 02:42 snw EC:45 Rate is 113 beats/min. Rhythm is regular, Sinus tachycardia. QRS [place] is Normal. NC tw4 interval is normal. QRS interval is normal. QT interval is normal. No Q waves. T waves are Flattened. No ST changes noted. Clinical impression: NSR w/ Non-specific ST/T Changes. Interpreted by me. Reviewed by me. Administered Medications: 02:40 Drug: Labetalol 20 mg Route: IVP; Infused Over: 2 mins; Site: left antecubital; jd3 03:40 Follow up: Response: No adverse reaction jd3 03:03 CANCELLED (Physician Discretion): Labetalol 10 mg IVP once jd3 03:34 Drug: AZITHromycin 500 mg Route: IVPB; Infused Over: 1 hrs; Site: left antecubital; jd3 04:30 Follow up: Response: No adverse reaction; IV Status: Completed infusion; IV Intake: jd3 250ml 03:34 Drug: Decadron - Dexamethasone 10 mg Route: IVP; Site: left antecubital; jd3 04:01 Follow up: Response: No adverse reaction jd3 03:34 Drug: Albuterol HFA Inhaler 2 puffs Route: Inhalation; jd3 04:01 Follow up: Response: No adverse reaction jd3 Disposition: 04/07/20 04:23 Hospitalization ordered by Hardy Hogue for Inpatient Admission. Preliminary diagnosis are HYPERTENSIVE EMERGENCY, Respiratory failure, unspecified, Coronavirus infection, unspecified. - Bed requested for Telemetry/MedSurg (Inpatient). - Status is Inpatient Admission. jd3 - Condition is Fair. - Problem is new. - Symptoms are unchanged. Signatures: Dispatcher [employer] EDIN Renee Magana, MARCELA-C CORK FLOOR INSTALLER-Cs[employer] Paty Perez, RN RN Batsheva Pulliam RN RN tl1 Sunil Jiménez RN RN jd3 Khai Chatterjee MD MD tw4 Corrections: (The following items were deleted from the chart) 02:49 02:25 PROTIME (+INR)+COAG.LAB.BRZ ordered. EDMS EDMS 02:52 02:25 BASIC METABOLIC PANEL+C.LAB.BRZ ordered. EDMS EDMS 02:52 02:25 HEPATIC FUNCTION+C.LAB.BRZ ordered. EDMS EDMS 02:52 02:25 MAGNESIUM+C.LAB.BRZ ordered. EDMS EDMS 02:52 02:25 PROBNP+C.LAB.BRZ ordered. EDMS EDMS 02:52 02:25 TROPONIN (EMERG DEPT USE ONLY)+C.LAB.BRZ ordered. EDIN EDMS 02:55 02:25 Chest Single View+RAD.RAD.BRZ ordered. EDIN EDMS 03:03 02:50 Labetalol 10 mg IVP once ordered. tw4 jd3 04:27 04:23 Hospitalization Ordered by Hardy Hogue MD for Inpatient Admission. Preliminary tl1 diagnosis is HYPERTENSIVE EMERGENCY; Respiratory failure, unspecified; Coronavirus infection, unspecified. Bed requested for Telemetry/MedSurg (Inpatient). Status is Inpatient Admission. Condition is Fair. Problem is new. Symptoms are unchanged. tw4 05:24 04:27 04/07/2020 04:23 Hospitalization Ordered by Hardy Hogue MD for Inpatient tl1 Admission. Preliminary diagnosis is HYPERTENSIVE EMERGENCY; Respiratory failure, unspecified; Coronavirus infection, unspecified. Bed requested for [facility] ER HOLD. Status is Inpatient Admission. Condition is Fair. Problem is new. Symptoms are unchanged. tl1 05:38 05:24 04/07/2020 04:23 Hospitalization Ordered by Hardy Hogue MD for Inpatient jd3 Admission. Preliminary diagnosis is HYPERTENSIVE EMERGENCY; Respiratory failure, unspecified; Coronavirus infection, unspecified. Bed requested for Telemetry/MedSurg (Inpatient). Status is Inpatient Admission. Condition is Fair. Problem is new. Symptoms are unchanged. tl1
--- NOTE | 2020-04-07 04:24 | ER ---
Nurse's Notes [facility] Name: Dashawn Fernandes Jr Age: 74 yrs Sex: Male : 1945 Arrival Date: 04/07/2020 Time: 02:23 Bed 4 Private MD: Diagnosis: HYPERTENSIVE EMERGENCY;Respiratory failure, unspecified;Coronavirus infection, unspecified Presentation: 04/07 02:18 Chief complaint: EMS states: that they were toned for pt having shortness of breath x 2 fc hrs. Upon their arrival pt had sats of 71% and bp of 235/135 with heart rate of 135. Coronavirus screen: Patient reports a cough. Patient reports shortness of breath or difficulty breathing. Patient denies measured and/or subjective temperature greater than 100.4F prior to today's visit. Patient denies travel on a cruise ship or to a country the [facility] currently lists as an affected area. Patient denies contact with known and/or suspected case of COVID-19. Ebola Screen: Patient negative for fever greater than or equal to 101.5 degrees Fahrenheit, and additional compatible Ebola Virus Disease symptoms Patient denies exposure to infectious person. Patient denies travel to an Ebola-affected area in the 21 days before illness onset. Initial Sepsis Screen: Does the patient meet any 2 criteria? RR > 20 per min. HR > 90 bpm. Yes Does the patient have a suspected source of infection? Yes: Productive cough/pneumonia If YES to both, name of provider notified: Khai Chatterjee MD. Risk Assessment: Do you want to hurt yourself or someone else? Patient reports no desire to harm self or others. Onset of symptoms was April 07, 2020 at 00:30. Care prior to arrival: Medication(s) given: Albuterol Neb x 1, Atrovent Neb x 1. Transition of care: patient was not received from another setting of care. 02:18 Method Of Arrival: EMS: [facility] 02:18 Acuity: ADELA 2 fc Historical: - Allergies: 02:36 No Known Allergies; fc - Home Meds: 02:36 clopidogrel 75 mg Oral tab 1 tab once daily [Active]; Metformin Oral [Active]; fc Metoprolol Tartrate Oral [Active]; Simvastatin Oral [Active]; tamsulosin Oral [Active]; - PMHx: 02:36 Diabetes - NIDDM; Hypertension; Myocardial infarction; fc - PSHx: 02:36 Heart stents; fc - Immunization history:: Last tetanus immunization: unknown, Pneumococcal vaccine is up to date, Flu vaccine is up to date. - Social history:: Smoking status: Patient reports the use of cigarette tobacco products, smokes one-half pack cigarettes per day, Patient/guardian denies using alcohol, street drugs. Screenin:18 Abuse screen: Denies threats or abuse. Nutritional screening: No deficits noted. fc Tuberculosis screening: No symptoms or risk factors identified. Fall Risk Fall in past 12 months (25 points). Secondary diagnosis (15 points) impaired mobility, No IV (0 pts). Ambulatory Aid- Crutches/Cane/Walker (15 pts). Gait- Weak (10 pts.). Mental Status- Overestimates/Forgets Limitations (15 pts.). Total Gonzalez Fall Scale indicates High Risk Score (45 or more points). Fall prevention measures have been instituted. Side Rails Up X 2 Placed Close to Nursing Station Frequent Obs/Assessments Occuring As available patient and family educated on Fall Prevention Program and Strategies. Assessment: 02:25 General: Appears distressed, uncomfortable, Behavior is cooperative, anxious. Pain: jd3 Denies pain. Neuro: Level of Consciousness is awake, alert, obeys commands, Oriented to person, place, time, situation. Cardiovascular: Denies chest pain, Heart tones present Capillary refill < 3 seconds Patient's skin is warm and dry. Respiratory: Reports shortness of breath at rest labored breathing Airway is patent Respiratory effort is labored, shallow, Respiratory pattern is symmetrical, tachypnea Breath sounds are diminished bilaterally. GI: No signs and/or symptoms were reported involving the gastrointestinal system. Patient currently denies constipation, diarrhea, nausea, vomiting. : No signs and/or symptoms were reported regarding the genitourinary system. EENT: No signs and/or symptoms were reported regarding the EENT system. Derm: Skin is intact, Skin is dry, Skin is pale, Skin temperature is warm. Musculoskeletal: Circulation, motion, and sensation intact. Range of motion: intact in all extremities. 02:44 Reassessment: No changes from previously documented assessment. Patient and/or family jd3 updated on plan of care and expected duration. Pain level reassessed. Patient states feeling better. 03:37 Reassessment: No changes from previously documented assessment. Patient and/or family jd3 updated on plan of care and expected duration. Pain level reassessed. awaiting results Patient states feeling better. 04:57 Reassessment: Patient and/or family updated on plan of care and expected duration. Pain jd3 level reassessed. Patient is alert, oriented x 3, equal unlabored respirations, skin warm/dry/pink. Patient states feeling better. Vital Signs: 02:18 BP 204 / 124; Pulse 121; Resp 36; Pulse Ox 88% on R/A; Weight 104.33 kg (R); Height 6 fc ft. 1 in. (185.42 cm) (R); Pain 0/10; 02:34 Pulse Ox 98% on 100% Non-rebreather mask; fc 02:42 BP 171 / 98; Pulse 105; Resp 23 S; Pulse Ox 95% on 15% Non-rebreather mask; jd3 03:36 BP 146 / 92; Pulse 100; Resp 24 S; Pulse Ox 97% on 15% Non-rebreather mask; jd3 04:57 BP 161 / 97; Pulse 86; Resp 20 S; Pulse Ox 99% on 10% Non-rebreather mask; jd3 05:13 BP 156 / 90; Pulse 93; Resp 19 S; Pulse Ox 95% on 5 lpm NC; jd3 02:18 Body Mass Index 30.34 (104.33 kg, 185.42 cm) ED Course: 02:18 Arm band placed on Patient placed in an exam room, on a stretcher. fc 02:18 Patient has correct armband on for positive identification. Bed in low position. Call light in reach. Side rails up X2. monitor technician on. Pulse ox on. NIBP on. 02:23 Patient arrived in ED. snw 02:24 EKG done, by ED staff, reviewed by Khai Chatterjee MD. Inserted saline lock: 20 gauge fc in left antecubital area, using aseptic technique. Blood collected. 02:32 Triage completed. fc 02:36 Khai Chatterjee MD is Attending Physician. tw4 02:41 Sunil Jiménez, RN is Primary Nurse. jd3 02:59 CXR XRAY In Process Unspecified. EDMS 03:05 Notified ED physician of a critical lab result(s). D-Dimer 2054. 04:23 Hardy Hogue MD is Hospitalizing Provider. tw4 05:37 No provider procedures requiring assistance completed. Patient admitted, IV remains in jd3 place. Administered Medications: 02:40 Drug: Labetalol 20 mg Route: IVP; Infused Over: 2 mins; Site: left antecubital; jd3 03:40 Follow up: Response: No adverse reaction jd3 03:03 CANCELLED (Physician Discretion): Labetalol 10 mg IVP once jd3 03:34 Drug: AZITHromycin 500 mg Route: IVPB; Infused Over: 1 hrs; Site: left antecubital; jd3 04:30 Follow up: Response: No adverse reaction; IV Status: Completed infusion; IV Intake: jd3 250ml 03:34 Drug: Decadron - Dexamethasone 10 mg Route: IVP; Site: left antecubital; jd3 04:01 Follow up: Response: No adverse reaction jd3 03:34 Drug: Albuterol HFA Inhaler 2 puffs Route: Inhalation; jd3 04:01 Follow up: Response: No adverse reaction jd3 Intake: 04:30 IV: 250ml; Total: 250ml. jd3 Outcome: 04:23 Decision to Hospitalize by Provider. tw4 05:37 Admitted to Med/surg accompanied by nurse, via stretcher, room 406, with oxygen, with jd3 chart, Report called to Rosibel CHATMAN 05:37 Condition: stable 05:37 Instructed on the need for admit, Demonstrated understanding of instructions. 05:38 Patient left the ED. jd3 Signatures: Dispatcher [employer] EDRenee Abrams, [employer]-Paty Berry, RN RN Sunil Minaya RN RN jKhai Stearns MD MD tw4
[2020-04-07 04:36] LABS: Arterial Blood Carboxyhemoglob 1.2 % (0-1.5); Blood Gas Oxyhemoglobin 97.1 % (94-97); Blood O2 Saturation 99.1 % (92-98.5)
[2020-04-07 05:31] VITALS: BMI 30.3
[2020-04-07] MEDS ORDERED: POTASSIUM 25 MEQ EFFERV TAB PO ONE (06:53)
[2020-04-07] MEDS: ENOXAPARIN 40 MG/0.4 ML SQ SCH (07:21)
--- NOTE | 2020-04-07 08:24 | P.HP ---
Certification for Inpatient Patient admitted to: Inpatient With expected LOS: >2 Midnights Patient will require the following post-hospital care: None Practitioner: I am a practitioner with admitting privileges, knowledge of patient current condition, hospital course, and medical plan of care. Services: Services provided to patient in accordance with Admission requirements found in Title 42 Section 412.3 of the Code of Federal Regulations Patient History Date of Service: 04/07/20 Reason for admission: Shortness of breath and hypoxemia History of Present Illness: Patient is a 74-year-old gentleman who came to the hospital with difficulty breathing. Patient states his symptoms started suddenly. He had been feeling well up until last night when he got significantly short of breath. He came into the emergency room for further evaluation. He denies any fever shakes or chills. He has had prior episodes but was told he may have congestive heart failure. At this time, patient be admitted to the hospital for further treatment. His chest x-ray does show some bilateral infiltrates. His symptoms are concerning for COVID-19 infection. Will admit him to the hospital for further evaluation. 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 He currently lives by himself. He is independent. - Family History Mother Medical History: Heart disease, Stroke Father Medical History: Heart disease - Social History Alcohol use: Yes CD- Drugs: No Caffeine use: Yes Review of Systems 10-point ROS is otherwise unremarkable Physical Examination - Vital Signs Temperature: 99 F Blood Pressure: 156/90 Pulse: 93 Respirations: 19 Pulse Ox (%): 96 - Physical Exam General: Alert, In no apparent distress, Oriented x3 HEENT: Atraumatic, PERRLA, Mucous membr. moist/pink, EOMI, Sclerae nonicteric Neck: Supple, 2+ carotid pulse no bruit, No LAD, Without JVD or thyroid abnormality Respiratory: Diminished, Rhonchi/gurgles Cardiovascular: Regular rate/rhythm, Normal S1 S2, Systolic murmur Gastrointestinal: Normal bowel sounds, Soft and benign, Non-distended, No tenderness Musculoskeletal: No clubbing, No swelling, No tenderness Integumentary: No rashes Neurological: Normal gait, Normal speech, Normal strength at 5/5 x4 extr, Normal tone, Sensation intact, Cranial nerves 3-12 intact, Normal affect Lymphatics: No axilla or inguinal lymphadenopathy - Studies Laboratory Data (last 24 hrs) 04/07/20 02:25: PT 11.5, INR 0.97, APTT 28.5 04/07/20 02:25: WBC 16.4 H, Hgb 14.8, Hct 45.1, Plt Count 252 04/07/20 02:25: Sodium 138, Potassium 3.7, BUN 23 H, Creatinine 1.54 H, Glucose 256 H, Magnesium 1.9, Total Bilirubin 0.5, AST 23, ALT 44, Alkaline Phosphatase 112, Lipase 119 04/07/20 02:24: PT Cancelled, INR Cancelled 04/07/20 02:24: WBC Cancelled, Hgb Cancelled, Hct Cancelled, Plt Count Cancelled 04/07/20 02:24: Sodium Cancelled, Potassium Cancelled, BUN Cancelled, Creatinine Cancelled, Glucose Cancelled, Magnesium Cancelled, Total Bilirubin Cancelled, AST Cancelled, ALT Cancelled, Alkaline Phosphatase Cancelled Microbiology Data (last 24 hrs): 04/07/20 02:50 Nasopharnyx Influenza Type A Antigen Screen - Final 04/07/20 02:50 Nasopharnyx Influenza Type B Antigen Screen - Final 04/07/20 02:50 Throat Group A Streptococcus Rapid Screen - Final Assessment & Plan - Problems (Diagnosis) (1) Dyspnea Current Visit: Yes Status: Acute (2) Hypoxemia Current Visit: Yes Status: Acute (3) Pneumonia Current Visit: Yes Status: Acute (4) COVID-19 Current Visit: Yes Status: Acute (5) History of coronary artery disease Current Visit: Yes Status: Acute (6) History of hypertension Current Visit: Yes Status: Acute (7) History of type 2 diabetes mellitus Current Visit: Yes Status: Acute (8) History of hyperlipidemia Current Visit: Yes Status: Acute - Plan 1. Continue with IV antibiotics 2. Awaiting sputum and blood culture; COVID-19 screen pending 3. Repeat chest x-ray 4. Will proceed with CT scan of the chest if pneumonia is not improved 5. Pulmonary consultation 6. Continue with inhaler therapy 7. O2 per protocol 8. Monitor volume status closely 9. Repeat labs including CBC and renal function in a.m. 10. GI and DVT prophylaxis Discharge Plan: Home Plan to discharge in: Greater than 2 days - Advance Directives Does patient have a Living Will: Yes Does patient have a Durable POA for Healthcare: No - Code Status/Comfort Care Code Status Assessed: Yes Code Status: Full Code Critical Care: No Time Spent Managing PTS Care (In Minutes): 45
[2020-04-07] MEDS: TAMSULOSIN 0.4 MG SR CAP PO SCH (08:52)
[2020-04-07] MEDS: METOPROLOL TAR 50 MG TAB PO SCH (08:52)
[2020-04-07] MEDS: levoFLOXacin 500 MG TAB PO SCH (08:52)
[2020-04-07] MEDS: FUROSEMIDE 20 MG/ 2ML VIAL IV SCH (08:52)
[2020-04-07] MEDS: CLOPIDOGREL 75 MG TABLET PO SCH (08:52)
[2020-04-07] MEDS: lisinopriL 20 MG TAB PO SCH (08:52)
[2020-04-07] MEDS ORDERED: dexAMETHasone 10 MG/ML VIAL IV SCH (09:00)
[2020-04-07] MEDS ORDERED: dexAMETHasone 4 MG/ML VIAL IV SCH (09:00)
--- NOTE | 2020-04-07 10:42 | RAD REPORT ---
EXAM DESCRIPTION: RAD - Chest Single View - 04/07/2020 2:59 am CLINICAL HISTORY: DYSPNEA Chest pain. COMPARISON: Chest Single View dated 04/11/2019; CHEST PA AND LAT 2 VIEW dated 12/04/2011; CHEST SINGLE VIEW dated 02/16/2008 FINDINGS: Portable technique limits examination quality. Moderate bilateral interstitial lung opacities are present which may represent interstitial pneumonia or pulmonary edema. The heart is moderately enlarged in size. No displaced fractures.
[2020-04-07 11:25] LABS: Absolute Lymphocytes (CBC) 0.3 K/uL (0.7-4.9); Basophils % 0.3 % (0-1.3); Hematocrit 41.8 % (39.6-49.0); Lymphocytes % 2.8 % (15.3-44.8); MPV 9.4 fL (7.6-11.3); RBC Red Blood Cell Count 4.67 M/uL (4.33-5.43)
--- NOTE | 2020-04-07 11:34 | P.CNS ---
Date of Consult: 04/07/20 Reason for Consult: Possible coronal virus pneumonia Chief Complaint: Shortness of breath and hypoxemia History of Present Illness: Patient is 74 years of age admitted with shortness of breath came on rather suddenly denies any fever admitted to the hospital with bilateral interstitial changes possible COVID 19 infection he is doing well some interstitial changes ambulating to the bathroom patient's white count is mildly elevated history of coronary artery disease congestive heart failure Allergies No Known Allergies Allergy (Verified 04/11/19 15:52) Home Medications: Clopidogrel Bisulfate [Plavix*] 75 mg PO DAILY 04/11/19 Metoprolol Tartrate [Lopressor*] 50 mg PO DAILY 04/11/19 Simvastatin 40 mg PO DAILY AT SUPPER 04/11/19 Tamsulosin [Flomax*] 0.4 mg PO DAILY 04/11/19 lisinopriL [Prinivil*] 20 mg PO DAILY 04/11/19 Metformin HCl 1,000 mg PO BID 04/07/20 - Past Medical/Surgical History Diabetic: Yes -: Diabetes mellitus type 2, non insulin dependent -: Hypertension -: CAD with prior stents -: Hyperlipidemia -: BPH -: Tobacco abuse -: 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 He currently lives by himself. He is independent. - Family History Mother Medical History: Heart disease, Stroke Father Medical History: Heart disease - Social History Alcohol use: Yes CD- Drugs: No Caffeine use: Yes Place of Residence: Home Review of Systems General: Weakness Respiratory: Shortness of Breath Physical Examination Temp Pulse Resp BP Pulse Ox 99 F 92 H 19 157/90 H 96 04/07/20 08:30 04/07/20 09:58 04/07/20 08:30 04/07/20 09:58 04/07/20 08:30 General: Other (Deferred) Laboratory Data (last 24 hrs) 04/07/20 02:25: PT 11.5, INR 0.97, APTT 28.5 04/07/20 02:25: WBC 16.4 H, Hgb 14.8, Hct 45.1, Plt Count 252 04/07/20 02:25: Sodium 138, Potassium 3.7, BUN 23 H, Creatinine 1.54 H, Glucose 256 H, Magnesium 1.9, Total Bilirubin 0.5, AST 23, ALT 44, Alkaline Phosphatase 112, Lipase 119 04/07/20 02:24: PT Cancelled, INR Cancelled 04/07/20 02:24: WBC Cancelled, Hgb Cancelled, Hct Cancelled, Plt Count Cancelled 04/07/20 02:24: Sodium Cancelled, Potassium Cancelled, BUN Cancelled, Creatinine Cancelled, Glucose Cancelled, Magnesium Cancelled, Total Bilirubin Cancelled, AST Cancelled, ALT Cancelled, Alkaline Phosphatase Cancelled - Problems (1) COVID-19 Current Visit: Yes Status: Acute Plan: Patient is 74 years of age admitted with sudden onset of shortness of breath possible alba virus infection patient has a no fever his sats on room air satisfactory blood pressure is mildly elevated cultures are pending he is afebrile possible discharge today on p.o. levofloxacin and low-dose prednisone slight worsening of interstitial changes compared to an x-ray a year ago patient's BNP is elevated he may have underlying heart failure
[2020-04-07 12:16] LABS: Albumin 3.7 g/dL (3.4-5.0); Bilirubin Total 0.4 mg/dL (0.2-1.0); Ferritin 102.1 ng/mL (26-388); Potassium 4.1 mmol/L (3.5-5.1); Protein, Total 7.4 g/dL (6.4-8.2)
[2020-04-07 12:19] LABS: Troponin I 0.94 ng/mL (0.0-0.045)
[2020-04-07] MEDS ORDERED: D50W 25 GM/50 ML SYRINGE/VIAL IV PRN (14:07)
[2020-04-07] MEDS ORDERED: GLUCAGON 1 MG/VIAL IM PRN (14:07)
[2020-04-07] MEDS: INSULIN -REGULAR HUMAN 50 UNIT/0.5 ML ML SQ SCH ×2 (16:39→20:50)
[2020-04-07] MEDS ORDERED: HOME MED 1 EA UNK (Simvastatin [Simvastatin] 40 MG) PO SCH (17:00)
[2020-04-07] MEDS: predniSONE 20 MG TAB PO SCH (20:29)
[2020-04-07] MEDS ORDERED: ATORVASTATIN 20 MG TAB PO SCH (21:00)
[2020-04-08] MEDS ORDERED: AZITHROMYCIN IV 500 MG in NA CHLORIDE 0.9% 250 ML IVPB SCH (03:00)
[2020-04-08 07:10] VITALS: O2SAT 97
[2020-04-08] MEDS: INSULIN -REGULAR HUMAN 50 UNIT/0.5 ML ML SQ SCH ×2 (07:30→11:30)
[2020-04-08] MEDS: lisinopriL 20 MG TAB PO SCH (08:06)
[2020-04-08] MEDS: levoFLOXacin 500 MG TAB PO SCH (08:07)
[2020-04-08] MEDS: ENOXAPARIN 40 MG/0.4 ML SQ SCH (08:07)
[2020-04-08] MEDS: CLOPIDOGREL 75 MG TABLET PO SCH (08:07)
[2020-04-08] MEDS: predniSONE 20 MG TAB PO SCH (08:07)
[2020-04-08] MEDS: FUROSEMIDE 20 MG/ 2ML VIAL IV SCH (08:07)
[2020-04-08] MEDS: TAMSULOSIN 0.4 MG SR CAP PO SCH (08:07)
[2020-04-08] MEDS: METOPROLOL TAR 50 MG TAB PO SCH (08:08)
--- NOTE | 2020-04-08 08:12 | P.PN ---
Subjective Date of Service: 04/08/20 Patient is oxygenating really well. No new complaints. Awaiting cardiac consultation for elevated troponin and BNP. Review of Systems 10-point ROS is otherwise unremarkable Physical Examination - Vital Signs Temperature: 97.2 F Blood Pressure: 140/75 Pulse: 75 Respirations: 17 Pulse Ox (%): 97 - Physical Exam General: Alert, In no apparent distress, Oriented x3 - Studies Microbiology Data (last 24 hrs): 04/07/20 02:50 Nasopharnyx Influenza Type A Antigen Screen - Final 04/07/20 02:50 Nasopharnyx Influenza Type B Antigen Screen - Final 04/07/20 02:50 Throat Group A Streptococcus Rapid Screen - Final Assessment & Plan - Problems (Diagnosis) (1) Dyspnea Current Visit: Yes Status: Acute (2) Hypoxemia Current Visit: Yes Status: Acute (3) Pneumonia Current Visit: Yes Status: Acute (4) COVID-19 Current Visit: Yes Status: Acute (5) History of coronary artery disease Current Visit: Yes Status: Acute (6) History of hypertension Current Visit: Yes Status: Acute (7) History of type 2 diabetes mellitus Current Visit: Yes Status: Acute (8) History of hyperlipidemia Current Visit: Yes Status: Acute (9) Elevated troponin Current Visit: Yes Status: Acute (10) Elevated brain natriuretic peptide (BNP) level Current Visit: Yes Status: Acute - Plan 1. Change to oral quinolone per Pulmonary recommendations 2. Awaiting COVID-19 testing 3. Cardiac workup pending; cardiology consultation pending 4. O2 per protocol 5. Pulmonary consultation appreciated 6. Changed to oral steroid use; continue albuterol inhaler; zinc and vitamin-C 7. O2 per protocol 8. Hep-Lock IV 9. Monitor cardiac labs 10. GI and DVT prophylaxis Discharge Plan: Home Plan to discharge in: 48 Hours - Advance Directives Does patient have a Living Will: Yes Does patient have a Durable POA for Healthcare: No - Code Status/Comfort Care Code Status: Full Code Critical Care: No Time Spent Managing PTS Care (In Minutes): 20
--- NOTE | 2020-04-08 08:58 | EKG ---
Test Date: 2020-04-07 Test Time: 02:24:00 Automotive Designer: RV MEASUREMENT RESULTS: Intervals: Rate: 113 LA: 186 QRSD: 84 QT: 328 QTc: 449 [place]: P: 61 LA: 186 QRS: -13 T: 58 INTERPRETIVE STATEMENTS: Sinus tachycardia with occasional premature ventricular complexes and fusion complexes Possible Inferior infarct, age undetermined Anteroseptal infarct, age undetermined Abnormal ECG Compared to ECG 04/11/2019 12:30:29 Fusion complex(es) now present Sinus rhythm no longer present Myocardial infarct finding still present Electronically Signed On 04-08-20 08:55:31 CDT by Andrew Jackson
--- NOTE | 2020-04-08 09:52 | CON ---
Date of Consultation: 04/08/2020 Reason For Consultation: Shortness of breath. History Of Present Illness: Mr. Fernandes is a 74-year-old white male. He is known to us from previous office visits. He has a history of diabetes, hypertension, dyslipidemia. He is status post stents f or coronary artery disease. He came into the hospital with shortness of breath. No chest pain. Has had some cough. No fever. No chills. Chest x-ray showed pneumonia versus congestive heart failure . He has been treated overnight with antibiotics, inhalers, Lasix, insulin, prednisone, and Lovenox and is feeling much better and he wants to go home. Has had some short runs of VT without any sympto ms. His troponin was elevated at 0.94. His D-dimer was 3590. Creatinine is 1.43. He is in sinus r hythm. Last blood pressure was 140/75. Allergies: NONE. Review of Systems: Negative. Social History: Positive for tobacco. Family History: Noncontributory. Review of Systems: Negative. Medications: At home include metoprolol, Flomax, Plavix, metformin, Zocor, and lisinopril. Physical Examination: Vital Signs: Stable. He is afebrile. COVID test is pending. General: No acute distress, wants to go home. Heart: Sinus rhythm. HEENT: Negative. Neck: Supple with no bruit. Chest: Reveals some expiratory wheezing and some rales at the bases. Cardiac: Revealed a regular rhythm and rate. No murmurs, gallops, or rubs. Abdomen: Obese, but benign. Extremities: Revealed no clubbing, cyanosis, or edema. Diagnostic Data: As stated earlier. Impression And Plan: 1.Shortness of breath, most likely secondary to congestive heart failure versus pneumonia. He has b een treated appropriately with Lasix, insulin, prednisone, Lovenox inhaler, and antibiotics. He is f eeling better and wants to go home. Coronavirus disease test is still pending. 2.Elevated troponin, possibly secondary to pneumonia and congestive heart failure. No chest pain re ported. 3.Elevated D-dimer, certainly could possibly be related to the pneumonia as well and the congestive heart failure, cannot rule out pulmonary embolus. 4.Short runs of ventricular tachycardia secondary to the congestive heart failure. 5.Hypertension. 6.Dyslipidemia. 7.Diabetes. 8.Coronary artery disease, status post percutaneous coronary intervention. I think Mr. Fernandes needs to continue his present regimen. I think we need to increase his metoprolol. We should probably continue his Plavix, maybe put him on a low-dose Xarelto. He is insisting on go ing home today, but I will make sure he come and see me in the office early next week and I would lik e him to have an echocardiogram and a Lexiscan before making further decisions. The case was discuss ed in detail with Dr. Stanley. CHARLEEN/JUHI Voice ID: [id number] Report ID: [id number]
--- NOTE | 2020-04-08 10:33 | P.DS ---
Admission Date: 04/07/20 (Hospital is) Discharge Date: 04/08/20 Disposition: ROUTINE DISCHARGE Discharge Condition: FAIR Reason for Admission: Shortness of breath and hypoxemia - Problems (1) COVID-19 Current Visit: Yes Status: Acute Brief History of Present Illness: Patient is 74 years of age admitted with shortness of breath came on rather suddenly denies any fever admitted to the hospital with bilateral interstitial changes possible COVID 19 infection he is doing well some interstitial changes ambulating to the bathroom patient's white count is mildly elevated history of coronary artery disease congestive heart failure Hospital Course: Patient did well at the time of discharge he was alert oriented responsive coop erative ambulating patient wanted to go home seen by Cardiology episodic Vtach. Discuss with cardiology discharged home on metoprolol twice a day and add a low- dose Xarelto patient is already on Plavix patient admitted with interstitial pneumonia possibly alba virus infection the also go home on some prednisone and levofloxacin the time of discharge he was alert oriented responsive cooperative chest is some crackles final signs stable ambulating white count normal cultures all negative Vital Signs/Physical Exam: Temp Pulse Resp BP Pulse Ox 97.2 F 75 17 140/75 97 04/08/20 08:12 04/08/20 08:12 04/08/20 08:12 04/08/20 08:12 04/08/20 08:12 Laboratory Data at Discharge: WBC Cancelled 04/08/20 09:00 Hgb Cancelled 04/08/20 09:00 Hct Cancelled 04/08/20 09:00 Plt Count Cancelled 04/08/20 09:00 PT 11.5 SECONDS (9.5-12.5) 04/07/20 02:25 INR 0.97 04/07/20 02:25 APTT 28.5 SECONDS (24.3-36.9) 04/07/20 02:25 Sodium Cancelled 04/08/20 09:00 Potassium Cancelled 04/08/20 09:00 BUN Cancelled 04/08/20 09:00 Creatinine Cancelled 04/08/20 09:00 Glucose Cancelled 04/08/20 09:00 Magnesium Cancelled 04/08/20 09:00 Total Bilirubin 0.4 mg/dL (0.2-1.0) 04/07/20 11:10 AST 18 U/L (15-37) 04/07/20 11:10 ALT 38 U/L (12-78) 04/07/20 11:10 Alkaline Phosphatase 106 U/L (45-117) 04/07/20 11:10 Troponin I Cancelled 04/08/20 09:00 Triglycerides 80 mg/dL (<150) 04/08/20 05:53 Cholesterol 111 mg/dL (<200) 04/08/20 05:53 HDL Cholesterol 43 mg/dL (40-60) 04/08/20 05:53 Cholesterol/HDL Ratio 2.58 04/08/20 05:53 Lipase 119 U/L (73-393) 04/07/20 02:25 Home Medications: Clopidogrel Bisulfate [Plavix*] 75 mg PO DAILY 04/11/19 Simvastatin 40 mg PO DAILY AT SUPPER 04/11/19 Tamsulosin [Flomax*] 0.4 mg PO DAILY 04/11/19 lisinopriL [Prinivil*] 20 mg PO DAILY 04/11/19 Metformin HCl 1,000 mg PO BID 04/07/20 Levofloxacin [Levaquin] 500 mg PO DAILY #7 tablet 04/08/20 Metoprolol Tartrate [Lopressor*] 50 mg PO BID #60 tab 04/08/20 Rivaroxaban [Xarelto] 10 mg PO DAILY #30 tablet 04/08/20 predniSONE [Deltasone*] 10 mg PO BID #14 tab 04/08/20 New Medications: predniSONE [Deltasone*] 10 mg PO BID #14 tab Levofloxacin [Levaquin] 500 mg PO DAILY #7 tablet Metoprolol Tartrate [Lopressor*] 50 mg PO BID #60 tab Rivaroxaban [Xarelto] 10 mg PO DAILY #30 tablet Patient Discharge Instructions: Please check on alba virus status if not available advice patient to do self quarantine for 2 weeks in wear a mask Diet: Low sodium Activity: Ad cheryl Followup: Andrew Jackson MD [ACTIVE - CAN ADMIT] - Jorge Stanley MD [ACTIVE - CAN ADMIT] -
[2020-04-09 00:10] VITALS: BP 158/88; TEMP 97
== END 2020-04-08 12:10 | disposition home or self-care (01) | DRG 177 ==
LOC: ER 02:21 → ERHOLD 05:13 → 4TH 05:34
PROVIDERS: ADMIT Hospitalist; ATTEND Hospitalist
DX: U07.1 COVID-19 (principal); J12.89 Other viral pneumonia; I47.2 Ventricular tachycardia; Z79.84 Long term (current) use of oral hypoglycemic drugs; Z79.899 Other long term (current) drug therapy; E11.9 Type 2 diabetes mellitus without complications; I10 Essential (primary) hypertension; I25.10 Atherosclerotic heart disease of native coronary artery without angina pectoris; Z95.5 Presence of coronary angioplasty implant and graft; N40.0 Benign prostatic hyperplasia without lower urinary tract symptoms; I25.2 Old myocardial infarction; Z60.2 Problems related to living alone; Z79.02 Long term (current) use of antithrombotics/antiplatelets; R09.02 Hypoxemia; R06.00 Dyspnea, unspecified; E78.5 Hyperlipidemia, unspecified
CPT/HCPCS: 36415; 71045; 80048; 80053; 80061; 80076; 82533; 82728; 82805; 82947; 83605; 83615; 83690; 83735; 83880; 84145; 84484; 85025; 85379; 85610; 85730; 86140; 87040; 87070; 87081; 87804; 93005; 94760; 96365; 96375; 99285; J0456; J1100; J1650; J1940; J7030; J7512; U0002

== ENCOUNTER 2020-05-31 12:56 | Emergency (ER) | payer OTHER ==
[2020-05-31] MEDS ORDERED: OXYMETAZOLINE HCL 0.05% 15ML NAS ONE (13:06)
[2020-05-31] MEDS ORDERED: SILVER NITRATE 1 APPL TOP ONE (14:16)
--- NOTE | 2020-05-31 14:42 | ER ---
Nurse's Notes [facility] Name: Dashawn Fernandes Jr Age: 74 yrs Sex: Male : 1945 Arrival Date: 05/31/2020 Time: 12:58 Bed 17 Private MD: Diagnosis: Epistaxis Presentation: 05/31 12:45 Chief complaint: EMS states: pt states he was just sitting down watching TV when his aa5 nose started bleeding, approximately 1 1/2 hrs ago. EMS reports bleeding to right nare, pt currently holding pressure to nose. Pt reports he takes Plavix and Xarelto. 12:45 Coronavirus screen: Client denies travel out of the [place] in the last 14 days. At this aa5 time, the client does not indicate any symptoms associated with coronavirus-19. The client reports previous COVID testing was negative. Ebola Screen: Patient negative for fever greater than or equal to 101.5 degrees Fahrenheit, and additional compatible Ebola Virus Disease symptoms. Initial Sepsis Screen: Does the patient meet any 2 criteria? No. Patient's initial sepsis screen is negative. Does the patient have a suspected source of infection? No. Patient's initial sepsis screen is negative. Risk Assessment: Do you want to hurt yourself or someone else? Patient reports no desire to harm self or others. Onset of symptoms was May 31, 2020. 12:45 Acuity: ADELA 3 aa5 12:45 [facility] Of [facility] aa5 12:45 Care prior to arrival: Glucose check: 132. aa5 Historical: - Allergies: 12:45 No Known Allergies; aa5 - PMHx: 12:45 BPH; Diabetes - NIDDM; Hypertension; Myocardial infarction; aa5 - PSHx: 12:45 Heart stents; aa5 - Immunization history:: Adult Immunizations up to date. - Family history:: not pertinent. - Social history:: Smoking status: unknown. - Hospitalizations: : No recent hospitalization is reported. Screenin:07 Abuse screen: Denies threats or abuse. Denies injuries from another. Nutritional jr10 screening: No deficits noted. Tuberculosis screening: No symptoms or risk factors identified. Fall Risk None identified. Assessment: 13:01 General: Appears in no apparent distress. Behavior is calm, cooperative, appropriate jr10 for age. Pain: Denies pain. Neuro: No deficits noted. Level of Consciousness is awake, alert, obeys commands, Oriented to person, place, time, situation, Appropriate for age Denies headache. Cardiovascular: No deficits noted. Denies chest pain. Respiratory: No deficits noted. Airway is patent Respiratory effort is even, unlabored, Respiratory pattern is regular, symmetrical, Denies shortness of breath. GI: No deficits noted. No signs and/or symptoms were reported involving the gastrointestinal system. : No deficits noted. No signs and/or symptoms were reported regarding the genitourinary system. EENT: Nares with bleeding noted pt reports bleeding from right nostril that started approx 1.5 hours ago, reports that he is currently on blood thinners; has tissue stuffed in right nostril upon arrival with bleeding controlled; large blood clot removed upon removal of tissue during assessment; no active bleeding at this time; afrin sprayed in both nares and nasal clamp placed. Will reassess and continue to monitor . EENT:. Derm: No deficits noted. No signs and/or symptoms reported regarding the dermatologic system. Musculoskeletal: No deficits noted. No signs and/or symptoms reported regarding the musculoskeletal system. 14:27 Reassessment: Nasal clamp removed from nares, no bleeding noted at this time. Dr Vance jr10 notified and aware. Will reassess. Vital Signs: 12:48 BP 153 / 84; Pulse 85; Resp 18 S; Temp 98.3(O); Pulse Ox 100% on R/A; Pain 0/10; aa5 15:05 BP 148 / 86; Pulse 84; Resp 20; Pulse Ox 100% on R/A; Pain 0/10; jr10 ED Course: 12:45 Patient arrived in ED. aa5 12:45 Arm band placed on. aa5 13:00 Jesus Nicole PA is PHCP. jr8 13:00 Josse Vance MD is Attending Physician. jr8 13:00 Marlee Escobar RN is Primary Nurse. jr10 13:02 Triage completed. aa5 13:07 Patient has correct armband on for positive identification. Placed in gown. Bed in low jr10 position. Call light in reach. Side rails up X2. Pulse ox on. NIBP on. 13:07 No provider procedures requiring assistance completed. Patient did not have IV access jr10 during this emergency room visit. 14:41 Tere Ya MD is Referral Physician. rn Administered Medications: 13:08 Drug: Juma-Synephrine Howard 0.5 % 2 sprays Route: Intranasal; Site: both nares; jr10 14:18 Follow up: Response: No adverse reaction jr10 14:17 Drug: Silver Nitrate Applicators 2 application {Note: administered to right nare via Dr keyshawn Vance.} Route: Topical; Site: affected area; 15:09 Follow up: Response: No adverse reaction; Marked relief of symptoms jr10 Outcome: 14:41 Discharge ordered by . rn 15:08 Discharged to home via wheelchair. jr10 15:08 Condition: improved 15:08 Discharge instructions given to patient, Instructed on discharge instructions, follow up and referral plans. Demonstrated understanding of instructions, follow-up care, medications, Prescriptions given X 1. 15:09 Patient left the ED. jr10 Signatures: Josse Vance MD MD rn Calderon, Audri RN RN aa5 Jesus Nicole PA PA jr8 Marlee Escobar RN RN jr10 Corrections: (The following items were deleted from the chart) 12:59 12:58 Patient arrived in ED. aa5 aa5 12:59 12:58 Patient arrived in ED. aa5 aa5 13:05 12:45 Chief complaint: EMS states: pt states he was just sitting down watching TV when aa5 his nose started bleeding. EMS reports bleeding to right nare, pt currently holding pressure to nose. Pt reports he takes Plavix and Xarelto. aa5
--- NOTE | 2020-05-31 14:42 | EDPHYS ---
Physician Documentation [facility] Name: Dashawn Fernandes Jr Age: 74 yrs Sex: Male : 1945 Arrival Date: 05/31/2020 Time: 12:58 Bed 17 Private MD: ED Physician Josse Vance HPI: 05/31 14:39 This 74 yrs old Male presents to ER via EMS with complaints of Nose Bleed. rn 14:39 The patient presents with a nose bleed. Onset: The symptoms/episode began/occurred 1 rn hour(s) ago. Modifying factors: The symptoms are alleviated by nothing. the symptoms are aggravated by blowing nose. Severity of symptoms: At their worst the symptoms were moderate in the emergency department the symptoms have improved. The patient has not experienced similar symptoms in the past. Reports nose bleed for last hour, holding pressure, began with hard sneeze, no trauma, on xarelto and plavix.. Historical: - Allergies: 12:45 No Known Allergies; aa5 - PMHx: 12:45 BPH; Diabetes - NIDDM; Hypertension; Myocardial infarction; aa5 - PSHx: 12:45 Heart stents; aa5 - Immunization history:: Adult Immunizations up to date. - Family history:: not pertinent. - Social history:: Smoking status: unknown. - Hospitalizations: : No recent hospitalization is reported. 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 Exam: 14:39 Constitutional: This is a well developed, well nourished patient who is awake, alert, rn and in no acute distress. ENT: + very slow bleeding right nose, nothing left nose Vital Signs: 12:48 BP 153 / 84; Pulse 85; Resp 18 S; Temp 98.3(O); Pulse Ox 100% on R/A; Pain 0/10; aa5 15:05 BP 148 / 86; Pulse 84; Resp 20; Pulse Ox 100% on R/A; Pain 0/10; jr10 Procedures: 14:39 Epistaxis treatment: A small amount of bleeding noted from Treated using Oxymetazoline rn sprays, cauterization, silver nitrate, Bleeding stopped. MDM: 13:03 Patient medically screened. jr8 14:39 Differential diagnosis: spontaneous epistaxis. Data reviewed: vital signs, nurses rn notes, and as a result, I will discharge patient. Counseling: I had a detailed discussion with the patient and/or guardian regarding: the historical points, exam findings, and any diagnostic results supporting the discharge/admit diagnosis, the need for outpatient follow up, to return to the emergency department if symptoms worsen or persist or if there are any questions or concerns that arise at home. Special discussion: I discussed with the patient/guardian in detail that at this point there is no indication for admission to the hospital. It is understood, however, that if the symptoms persist or worsen the patient needs to return immediately for re-evaluation. Based on the history and exam findings, there is no indication for further emergent testing or inpatient evaluation. I discussed with the patient/guardian the need to see the ENT specialist for further evaluation of the symptoms. I discussed with the patient/guardian the need to see the primary care provider for further evaluation of the symptoms. ED course: Bleeding resolved after afrin and silver nitrate swab x 1. . Administered Medications: 13:08 Drug: Juma-Synephrine [place] 0.5 % 2 sprays Route: Intranasal; Site: both nares; jr10 14:18 Follow up: Response: No adverse reaction jr10 14:17 Drug: Silver Nitrate Applicators 2 application {Note: administered to right nare via Dr keyshawn Vance.} Route: Topical; Site: affected area; 15:09 Follow up: Response: No adverse reaction; Marked relief of symptoms jr10 Disposition: 05/31/20 14:41 Discharged to Home. Impression: Epistaxis. - Condition is Stable. - Discharge Instructions: Nosebleed, Adult. - Prescriptions for Augmentin 875- 125 mg Oral Tablet - take 1 tablet by ORAL route every 12 hours for 10 days; 20 tablet. - Medication Reconciliation Form, Thank You Letter, Antibiotic Education, Prescription Opioid Use form. - Follow up: Tere Ya MD; When: As needed; Reason: Recheck today's complaints, Re-evaluation by your physician. - Problem is new. - Symptoms are resolved. Signatures: Josse Vance MD MD rn Calderon, Audri RN RN aa5 Jesus Nicole PA PA jr8 Marlee Escobar RN RN jr10 Corrections: (The following items were deleted from the chart) 15:09 14:41 05/31/2020 14:41 Discharged to Home. Impression: Epistaxis. Condition is Stable. jr10 Forms are Medication Reconciliation Form, Thank You Letter, Antibiotic Education, Prescription Opioid Use. Follow up: Tere Ya; When: As needed; Reason: Recheck today's complaints, Re-evaluation by your physician. Problem is new. Symptoms are resolved. rn
[2020-06-05 10:39] VITALS: BP 148/86; O2SAT 100
== END 2020-05-31 15:09 | disposition home or self-care (01) ==
LOC: ER 12:56
PROC: 093K7ZZ Control Bleeding in Nasal Mucosa and Soft Tissue, Via Natural or Artificial Opening (ICD-10-PCS; principal; 2020-05-31)
DX: R04.0 Epistaxis (principal); I10 Essential (primary) hypertension; I25.2 Old myocardial infarction; Z95.818 Presence of other cardiac implants and grafts; Z79.01 Long term (current) use of anticoagulants
CPT/HCPCS: 30901; 99284

== ENCOUNTER 2020-06-29 12:18 | Inpatient (IN) | payer OTHER ==
[2020-06-29] MEDS ORDERED: FUROSEMIDE 20 MG/ 2ML VIAL ONE (12:47)
[2020-06-29] MEDS ORDERED: FUROSEMIDE 40 MG/4 ML VIAL ONE ×2 (12:47→16:08)
[2020-06-29 12:57] LABS: Absolute Lymphocytes (CBC) 0.6 K/uL (0.7-4.9); Basophils % 0.8 % (0-1.3); Hematocrit 28.8 % (39.6-49.0); Lymphocytes % 5.7 % (15.3-44.8); MPV 8.6 fL (7.6-11.3); Protime INR 1.14
[2020-06-29 13:16] LABS: Albumin 3.1 g/dL (3.4-5.0); Bilirubin Direct 0.2 mg/dL (0-0.2); Bilirubin Total 0.4 mg/dL (0.2-1.0); Potassium 4.5 mmol/L (3.5-5.1); Protein, Total 6.8 g/dL (6.4-8.2); Troponin (Emerg Dept Use Only) 0.02 ng/mL (0.0-0.045)
--- NOTE | 2020-06-29 13:35 | ER ---
Nurse's Notes [facility] Name: Dashawn Fernandes Jr Age: 74 yrs Sex: Male : 1945 Arrival Date: 06/29/2020 Time: 12:20 Bed 3 Private MD: Diagnosis: Anasarca;Acute kidney failure;Acute combined systolic (congestive) and diastolic (congestive) heart failure;Pulmonary edema Presentation: 06/29 12:23 Chief complaint: EMS states: we were called out for respiratory distress, 89% on room tw2 air, gave A\\T\\A treatment and he went up to 99% then started dropping down shortly after that. we put him on a non-rebreather at 12 L. Chief complaint: Patient states: the swelling has been going on for 3 weeks, but the shortness of breath 3 days increasing where sob at rest and exertion. Coronavirus screen: At this time, the client does not indicate any symptoms associated with coronavirus-19. Ebola Screen: Patient denies travel to an Ebola-affected area in the 21 days before illness onset. 12:23 Method Of Arrival: EMS: [facility] tw2 12:23 Initial Sepsis Screen: Does the patient meet any 2 criteria? No. Patient's initial tw2 sepsis screen is negative. Does the patient have a suspected source of infection? No. Patient's initial sepsis screen is negative. Risk Assessment: Do you want to hurt yourself or someone else? Patient reports no desire to harm self or others. Onset of symptoms was June 29, 2020. 12:23 Acuity: ADELA 2 tw2 Triage Assessment: 12:23 General: Appears in no apparent distress. Behavior is calm, cooperative, appropriate tw2 for age. Pain: Denies pain. Respiratory: Reports shortness of breath at rest on exertion. Historical: - Allergies: 12:30 No Known Allergies; tw2 - Home Meds: 14:27 metformin 1,000 mg Oral tab 1 tab 2 times per day [Active]; simvastatin 40 mg Oral tab tw2 1 tab once daily [Active]; niacin 500 mg Oral tab 2 tabs daily [Active]; aspirin 81 mg Oral chew 1 tab once daily [Active]; metoprolol tartrate 50 mg Oral tab 2.5 tab 2 times per day [Active]; tamsulosin 0.4 mg Oral cp24 1 cap once daily [Active]; Januvia 25 mg oral tab 1 tablet daily [Active]; - PMHx: 12:30 Diabetes - NIDDM; Hypertension; Myocardial infarction; BPH; tw2 - PSHx: 12:30 Heart stents; tw2 - Immunization history:: Adult Immunizations. - Social history:: Smoking status: . Screenin:50 Abuse screen: Denies threats or abuse. Nutritional screening: No deficits noted. tw2 Tuberculosis screening: No symptoms or risk factors identified. Fall Risk Secondary diagnosis (15 points) impaired mobility. Assessment: 12:25 Reassessment: pt placed on BIPAP at this time, Serenity,RT at bedside at this time. tw2 12:30 Reassessment: pt states "I have already had the covid swap and it makes my nose bleed tw2 too bad and i do not want it done again", provider notified. 12:35 General: Appears in no apparent distress. Behavior is calm, cooperative, appropriate tw2 for age. Pain: Denies pain. Neuro: Level of Consciousness is awake, alert, obeys commands, Oriented to person, place, time, situation. Cardiovascular: Heart tones S1 S2 Patient's skin is warm and dry. Edema is 3+ to left knee, left midcalf, left ankle, right knee, right midcalf and right ankle. Respiratory: Reports shortness of breath at rest on exertion Airway is patent Respiratory effort is even, unlabored, Respiratory pattern is symmetrical, tachypnea Breath sounds with rales bilaterally. GI: No signs and/or symptoms were reported involving the gastrointestinal system. Abdomen is round non-distended, Bowel sounds present X 4 quads. : No signs and/or symptoms were reported regarding the genitourinary system. EENT: No signs and/or symptoms were reported regarding the EENT system. Derm: No signs and/or symptoms reported regarding the dermatologic system. Musculoskeletal: Range of motion: intact in all extremities. 13:32 Reassessment: Patient appears in no apparent distress at this time. No changes from tw2 previously documented assessment. Patient and/or family updated on plan of care and expected duration. Pain level reassessed. pt a\\T\\o x4. 13:33 Reassessment: Patient states feeling better. tw2 14:56 Reassessment: Patient appears in no apparent distress at this time. No changes from tw2 previously documented assessment. Patient and/or family updated on plan of care and expected duration. Pain level reassessed. Vital Signs: 12:23 BP 149 / 86; Pulse 86; Resp 22; Temp 97.6(TE); Pulse Ox 89% on R/A; Weight 104.33 kg tw2 (R); Height 6 ft. 1 in. (185.42 cm); 12:47 BP 157 / 86; Pulse 79; Resp 21; Pulse Ox 97% on 30% BiPAP; tw2 13:32 BP 148 / 87; Pulse 79; Resp 20; Pulse Ox 97% on BiPAP; tw2 14:55 BP 135 / 72; Pulse 79; Resp 19; Pulse Ox 96% on 4 lpm NC; tw2 12:23 Body Mass Index 30.34 (104.33 kg, 185.42 cm) tw2 12:23 pt placed on non rebreather at 12L at this time, 99%, bipap ordered. tw2 12:47 14/6, rate 12 per Serenity,RT tw2 14:55 as pt is moving to room 209 at this time. tw2 ED Course: 12:20 Patient arrived in ED. em1 12:20 Placed in gown. Bed in low position. Call light in reach. cardiac monitor on. Pulse ox tw2 on. NIBP on. 12:23 Nelia Peterson RN is Primary Nurse. tw2 12:26 Jesus Nicole PA is PHCP. jr8 12:26 Josse Vance MD is Attending Physician. jr8 12:27 Arm band placed on. tw2 12:40 Inserted saline lock: 20 gauge in right antecubital area, using aseptic technique. tw2 Blood collected. 13:12 XRAY Chest (1 view) In Process Unspecified. EDMS 13:33 Ernesto Guerrero MD is Hospitalizing Provider. jr8 14:45 Report given to LURDES Gil. tw2 14:49 Triage completed. tw2 14:56 No provider procedures requiring assistance completed. Patient admitted, IV remains in tw2 place. Administered Medications: 12:42 Drug: Lasix 60 mg Route: IVP; Site: right antecubital; tw2 14:30 Follow up: Response: No adverse reaction tw2 Output: 14:29 Urine: 800ml (Voided); Total: 800ml. tw2 Outcome: 13:34 Decision to Hospitalize by Provider. beto 14:56 Admitted to Med/surg accompanied by tech, via stretcher, room 209, with chart, Report tw2 called to LURDES Gil 14:56 Condition: stable 14:56 Instructed on the need for admit. 14:57 Patient left the ED. tw2 Signatures: Dispatcher [employer] EDJoesph Hubbard em1 Jesus Nicole PA PA jr8 Nelia Peterson, RN RN tw2
--- NOTE | 2020-06-29 13:35 | EDPHYS ---
Physician Documentation [facility] Name: Dashawn Fernandes Jr Age: 74 yrs Sex: Male : 1945 Arrival Date: 06/29/2020 Time: 12:20 Bed 3 Private MD: ED Physician Josse Vance HPI: 06/29 12:37 This 74 yrs old Male presents to ER via EMS with complaints of Shortness Of jr8 Breath. 12:37 The patient has shortness of breath at rest. Onset: The symptoms/episode began/occurred jr8 gradually, 3 day(s) ago, and became worse and became persistent. Duration: The symptoms are continuous. The patient's shortness of breath is aggravated by light activity, supine position, walking. Associated signs and symptoms: Pertinent positives: lower extremity edema. Severity of symptoms: At their worst the symptoms were moderate in the emergency department the symptoms are unchanged. It is unknown whether or not the patient has had similar symptoms in the past. The patient has not recently seen a physician. Patient stated that his ceramic design engineer took him off of his water pills. Stated that for the past 3 weeks has had progressive worsening of lower extremity edema. Now with shortness of breath that went from light exertion to even at rest now. Historical: - Allergies: 12:30 No Known Allergies; tw2 - Home Meds: 14:27 metformin 1,000 mg Oral tab 1 tab 2 times per day [Active]; simvastatin 40 mg Oral tab tw2 1 tab once daily [Active]; niacin 500 mg Oral tab 2 tabs daily [Active]; aspirin 81 mg Oral chew 1 tab once daily [Active]; metoprolol tartrate 50 mg Oral tab 2.5 tab 2 times per day [Active]; tamsulosin 0.4 mg Oral cp24 1 cap once daily [Active]; Januvia 25 mg oral tab 1 tablet daily [Active]; - PMHx: 12:30 Diabetes - NIDDM; Hypertension; Myocardial infarction; BPH; tw2 - PSHx: 12:30 Heart stents; tw2 - Immunization history:: Adult Immunizations. - Social history:: Smoking status: . ROS: 12:39 Eyes: Negative for injury, pain, redness, and discharge, ENT: Negative for injury, jr8 pain, and discharge, Neck: Negative for injury, pain, and swelling, Abdomen/GI: Negative for abdominal pain, nausea, vomiting, diarrhea, and constipation, Back: Negative for injury and pain, MS/Extremity: Negative for injury and deformity, Skin: Negative for injury, rash, and discoloration, Neuro: Negative for headache, weakness, numbness, tingling, and seizure. 12:39 Cardiovascular: Positive for edema, orthopnea, paroxysmal nocturnal dyspnea. 12:39 Respiratory: Positive for dyspnea on exertion, orthopnea, shortness of breath. Exam: 12:39 Eyes: Pupils equal round and reactive to light, extra-ocular motions intact. Lids and jr8 lashes normal. Conjunctiva and sclera are non-icteric and not injected. Cornea within normal limits. Periorbital areas with no swelling, redness, or edema. ENT: Nares patent. No nasal discharge, no septal abnormalities noted. Tympanic membranes are normal and external auditory canals are clear. Oropharynx with no redness, swelling, or masses, exudates, or evidence of obstruction, uvula midline. Mucous membranes moist. Neck: Trachea midline, no thyromegaly or masses palpated, and no cervical lymphadenopathy. Supple, full range of motion without nuchal rigidity, or vertebral point tenderness. No Meningismus. Abdomen/GI: Soft, non-tender, with normal bowel sounds. No distension or tympany. No guarding or rebound. No evidence of tenderness throughout. Back: No spinal tenderness. No costovertebral tenderness. Full range of motion. Skin: Warm, dry with normal turgor. Normal color with no rashes, no lesions, and no evidence of cellulitis. MS/ Extremity: Pulses equal, no cyanosis. Neurovascular intact. Full, normal range of motion. Neuro: Awake and alert, GCS 15, oriented to person, place, time, and situation. Cranial nerves II-XII grossly intact. Motor strength 5/5 in all extremities. Sensory grossly intact. 12:39 Cardiovascular: Rate: normal, Rhythm: regular, Pulses: Pulses are 2+ in right radial artery and left radial artery. Heart sounds: normal, normal S1and S2, no S3 or S4, no murmur, no rub, no gallop, Edema: 4+ edema to level of waist, pubic area, left upper thigh, left lower thigh, left knee, left midcalf, left ankle, left foot, right upper thigh, right lower thigh, right knee, right midcalf, right ankle and right foot. 12:39 Respiratory: mild respiratory distress is noted, Respirations: tachypnea, that is mild, Breath sounds: rales, that are moderate, are located in both bases, Respiratory rate: 22 Vital Signs: 12:23 BP 149 / 86; Pulse 86; Resp 22; Temp 97.6(TE); Pulse Ox 89% on R/A; Weight 104.33 kg tw2 (R); Height 6 ft. 1 in. (185.42 cm); 12:47 BP 157 / 86; Pulse 79; Resp 21; Pulse Ox 97% on 30% BiPAP; tw2 13:32 BP 148 / 87; Pulse 79; Resp 20; Pulse Ox 97% on BiPAP; tw2 14:55 BP 135 / 72; Pulse 79; Resp 19; Pulse Ox 96% on 4 lpm NC; tw2 12:23 Body Mass Index 30.34 (104.33 kg, 185.42 cm) tw2 12:23 pt placed on non rebreather at 12L at this time, 99%, bipap ordered. tw2 12:47 14/6, rate 12 per Serenity,RT tw2 14:55 as pt is moving to room 209 at this time. tw2 MDM: 12:26 Patient medically screened. jr8 13:31 Data reviewed: vital signs, nurses notes, lab test result(s), EKG, radiologic studies, jr8 plain films. Data interpreted: Pulse oximetry: on room air is 89 %. Interpretation: hypoxia. Counseling: I had a detailed discussion with the patient and/or guardian regarding: the historical points, exam findings, and any diagnostic results supporting the discharge/admit diagnosis, lab results, radiology results, the need for further work-up and treatment in the hospital. ED course: Dr. Guerrero called and will admit patient . 06/29 12:26 Order name: Basic Metabolic Panel; Complete Time: 13:06/29 12: Order name: CBC with Diff; Complete Time: 13:46 06/29 12: Order name: LFT's; Complete Time: 13:22 8 06/29 12:26 Order name: Magnesium; Complete Time: 13:06/29 12:26 Order name: NT PRO-BNP; Complete Time: 13:22 06/29 12:26 Order name: PT-INR; Complete Time: 13:00 06/29 12:26 Order name: Troponin (emerg Dept Use Only); Complete Time: 13:22 06/29 13:45 Order name: Manual Differential; Complete Time: 13:46 ED[facility] 06/29 13:49 Order name: Urine Creatinine 06/29 13:49 Order name: Urine For Protein, Random 06/29 13:49 Order name: Uric Acid 06/29 13:49 Order name: TSH 06/29 14:15 Order name: Urine Dipstick--Ancillary (enter results) em1 06/29 14:23 Order name: UR PROTEIN; Complete Time: 14:56 [facility] 06/29 12:23 Order name: BIPAP 2 06/29 12:26 Order name: XRAY Chest (1 view); Complete Time: 13:55 [facility] 06/29 12:26 Order name: EKG; Complete Time: 12:27 [facility] 06/29 12:26 Order name: Cardiac monitoring; Complete Time: 12:46 06/29 12:26 Order name: EKG - Nurse/Tech; Complete Time: 13:15 06/29 12:26 Order name: IV Saline Lock; Complete Time: 12:46 06/29 12:26 Order name: Labs collected and sent; Complete Time: 12:46 06/29 12:26 Order name: O2 Per Protocol; Complete Time: 12:46 06/29 12:26 Order name: O2 Sat Monitoring; Complete Time: 12:46 [facility] 06/29 13:42 Order name: CONS Physician Consult [facility] 06/29 14:26 Order name: UR CREAT; Complete Time: 14:56 ED[facility] 06/29 14:38 Order name: Uric Acid; Complete Time: 14:56 [facility] 06/29 14:38 Order name: Thyroid Stimulating Hormone; Complete Time: 14:56 [facility] 06/29 14:50 Order name: Urine Dipstick-Ancillary; Complete Time: 14:56 EDMS Administered Medications: 12:42 Drug: Lasix 60 mg Route: IVP; Site: right antecubital; tw2 14:30 Follow up: Response: No adverse reaction tw2 Disposition: 17:33 Co-signature as Attending Physician, Josse Vance MD. rn Disposition: 06/29/20 13:34 Hospitalization ordered by Ernesto Guerrero for Inpatient Admission. Preliminary diagnosis are Anasarca, Acute kidney failure, Acute combined systolic (congestive) and diastolic (congestive) heart failure, Pulmonary edema. - Bed requested for Telemetry/MedSurg (Inpatient). - Status is Inpatient Admission. tw2 - Condition is Stable. - Problem is new. - Symptoms have improved. Signatures: Dispatcher [employer] EDMS Asuncion Montero RN RN Josse Vance MD MD rn Roszak, Josh, PA PA jr8 Nelia Peterson RN RN tw2 Corrections: (The following items were deleted from the chart) 14:21 13:34 Hospitalization Ordered by Ernesto Guerrero MD for Inpatient Admission. Preliminary diagnosis is Anasarca; Acute kidney failure; Acute combined systolic (congestive) and diastolic (congestive) heart failure; Pulmonary edema. Bed requested for Telemetry/MedSurg (Inpatient). Status is Inpatient Admission. Condition is Stable. Problem is new. Symptoms have improved. jr8 14:57 14:21 06/29/2020 13:34 Hospitalization Ordered by Ernesto Guerrero MD for Inpatient tw2 Admission. Preliminary diagnosis is Anasarca; Acute kidney failure; Acute combined systolic (congestive) and diastolic (congestive) heart failure; Pulmonary edema. Bed requested for Telemetry/MedSurg (Inpatient). Status is Inpatient Admission. Condition is Stable. Problem is new. Symptoms have improved. dw
[2020-06-29 13:45] LABS: Blood Morphology Comment NOT SEEN (NOT SEEN); Platelet Estimate ADEQ
--- NOTE | 2020-06-29 13:53 | RAD REPORT ---
EXAM DESCRIPTION: Kushal Single View06/29/2020 1:14 pm CLINICAL HISTORY: Shortness of breath COMPARISON: June 24, 2020 FINDINGS: Bilateral pulmonary nodules suspected. Worsening in bilateral pulmonary opacities which m ay represent a combination of pulmonary edema superimposed over infection or metastatic disease Heart remains enlarged. Small pleural effusions suspected
[2020-06-29 14:38] LABS: Thyroid Stimulating Hormone 2.39 uIU/mL (0.360-3.740); Uric Acid 7.9 mg/dL (3.5-7.2)
[2020-06-29 14:50] LABS: Urine Blood 2+ (NEG); Urine Glucose NEGATIVE (NEG); Urine Protein NEGATIVE (NEG); Urine pH 5.5 (5.0-7.0)
[2020-06-29] MEDS ORDERED: ONDANSETRON 4 MG/2 ML VIAL IV PRN (15:13)
[2020-06-29] MEDS ORDERED: ALBUTEROL 2.5 MG/3 ML NEB SOL NEB PRN (15:13)
[2020-06-29] MEDS ORDERED: D50W 25 GM/50 ML SYRINGE/VIAL IV PRN (15:13)
[2020-06-29] MEDS ORDERED: ACETAMINOPHEN 500 MG TAB PO PRN (15:13)
[2020-06-29] MEDS ORDERED: IPRATROPIUM BROM 0.5MG/2.5ML NEB PRN (15:13)
[2020-06-29] MEDS ORDERED: GLUCAGON 1 MG/VIAL IM PRN (15:13)
[2020-06-29] MEDS ORDERED: ALBUTEROL 2.5 MG/3 ML NEB SOL ONE (16:22)
[2020-06-29] MEDS ORDERED: IPRATROPIUM BROM 0.5MG/2.5ML ONE (16:22)
[2020-06-29] MEDS: FUROSEMIDE 40 MG/4 ML VIAL IV SCH (16:30)
[2020-06-29] MEDS: INSULIN -REGULAR HUMAN 50 UNIT/0.5 ML ML SQ SCH ×2 (16:30→21:00)
[2020-06-29] MEDS ORDERED: ENOXAPARIN 30 MG/0.3 ML SQ SCH (17:00)
--- NOTE | 2020-06-29 17:43 | RAD REPORT ---
EXAM DESCRIPTION: US - Renal Ultrasound-Complete - 06/29/2020 5:19 pm CLINICAL HISTORY: . Renal failure COMPARISON: June 14, 2020 FINDINGS: The right kidney measures 15 cm with a normal echotexture. Moderate hydronephrosis The left kidney measures 14 cm with a normal echotexture. Moderate hydronephrosis Soft tissue structure abutting the posterior bladder incompletely evaluated. It probably represents p rostatic tissue IMPRESSION: Moderate bilateral hydronephrosis without significant change from the prior examination
[2020-06-30 05:49] LABS: Absolute Lymphocytes (CBC) 0.8 K/uL (0.7-4.9); Basophils % 0.9 % (0-1.3); Hematocrit 29.7 % (39.6-49.0); Lymphocytes % 6.7 % (15.3-44.8); MPV 8.6 fL (7.6-11.3); RBC Red Blood Cell Count 3.29 M/uL (4.33-5.43)
[2020-06-30 06:13] LABS: Rheumatoid Factor NEG (NEG)
[2020-06-30 06:32] LABS: Albumin 3.5 g/dL (3.4-5.0); Ferritin 159.4 ng/mL (26-388); Folic Acid, (Folate) 11.8 ng/mL (3.1-17.5); Phosphorus 4.6 mg/dL (2.5-4.9); Potassium 4.1 mmol/L (3.5-5.1)
[2020-06-30] MEDS: INSULIN -REGULAR HUMAN 50 UNIT/0.5 ML ML SQ SCH ×4 (07:30→21:00)
[2020-06-30] MEDS ORDERED: HOME MED 1 EA UNK (Metformin Hcl [Glucophage] 1 TAB) PO SCH (09:00)
[2020-06-30] MEDS ORDERED: lisinopriL 20 MG TAB PO SCH (09:00)
[2020-06-30] MEDS: METOPROLOL TAR 25 MG TAB PO SCH ×2 (09:34→21:23)
[2020-06-30] MEDS: TAMSULOSIN 0.4 MG SR CAP PO SCH (09:34)
[2020-06-30] MEDS: ASPIRIN 81 MG CHEWABLE TABLET PO SCH (09:34)
[2020-06-30] MEDS: NIACIN 500 MG SR TAB PO SCH ×2 (09:34→21:00)
[2020-06-30] MEDS: FUROSEMIDE 40 MG/4 ML VIAL IV SCH ×2 (09:35→17:10)
[2020-06-30] MEDS: AMLODIPINE 10 MG TAB PO SCH (09:38)
--- NOTE | 2020-06-30 10:05 | P.CNS ---
Date of Consult: 06/30/20 Reason for Consult: TANIKA Chief Complaint: SOB History of Present Illness: 74-year-old gentleman with a history of CHF, diabetes, coronary artery disease and hypertension pt was admitted for SOB Pt was admitted in May for PNA and CHF exacaerbation Cr 3.2 on admission , reviewing labs Cr was 1.5 in April and 2.0 in May US from Jun 08 showed B/L hydronephrosis Now Pt feels better after lasix denied fever , chills , nausea , vomiting or diarrhea hysical exam general: awake and alert , NAD Neck; Supple, No elevated JVD hear: RRR, normal S1,2 no murmur or rub Chest: decreased air entry B/L Abdomen: hernia, Nt, distended bladder?? Extremities +2 edema A/P TANIKA on CKD Pt with progressively worsening Cr since april US with B/L hydronephrosis will insert Sotelo will order Abd/pelvic CT without contrast tomorrow renal dose meds will dc lisniopril and metfromin if no improvement in RFT , then might need to initiate HD Obstructive uropathy will insert Sotelo will order Abd/pelvic CT without contrast tomorrow will consider lasix scan , after if CT scan with no significant findings CHF exacerbation Cont lasix DM will dc metfromin HTN Bp controlled will dc lisinopril Allergies No Known Allergies Allergy (Verified 04/11/19 15:52) Home Medications: Simvastatin 40 mg PO BEDTIME 04/11/19 Tamsulosin [Flomax*] 0.4 mg PO DAILY 04/11/19 lisinopriL [Prinivil*] 20 mg PO DAILY 04/11/19 Aspirin [Jennifer Chewable Aspirin] 81 mg PO DAILY 05/10/20 Niacin 500 mg PO BID 05/10/20 Rivaroxaban [Xarelto] 20 mg PO DAILY 05/10/20 Amlodipine [Norvasc*] 10 mg PO DAILY #30 tab 05/11/20 Sitagliptin Phosphate [Januvia] 25 mg PO DAILY #30 tablet 05/11/20 Albuterol Sulfate [Proair Respiclick] 90 mcg IH PRN 06/29/20 Furosemide [Lasix*] 1 tab PO DAILY 06/29/20 Levalbuterol Tartrate [Levalbuterol Tartrate Hfa] 2 puff IH Q4H 06/29/20 Metformin HCl [Glucophage] 1 tab PO BID 06/29/20 Metoprolol Tartrate [Lopressor*] 1.5 tab PO BID 06/29/20 - Past Medical/Surgical History Diabetic: Yes -: Diabetes mellitus type 2, non insulin dependent -: Hypertension -: CAD with prior stents -: Hyperlipidemia -: BPH -: Tobacco abuse -: 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 He currently lives by himself. He is independent. - Family History Mother Medical History: Heart disease, Stroke Father Medical History: Heart disease - Social History Smoking Status: Unknown if ever smoked Alcohol use: No CD- Drugs: No Caffeine use: Yes Physical Examination Temp Pulse Resp BP Pulse Ox 97.3 F 82 20 143/72 H 99 06/30/20 08:00 06/30/20 09:38 06/30/20 08:00 06/30/20 09:38 06/30/20 08:00 Laboratory Data (last 24 hrs) 06/29/20 12:40: PT 13.4 H, INR 1.14 06/29/20 12:40: WBC 10.0, Hgb 9.6 L, Hct 28.8 L, Plt Count 271 06/29/20 12:40: Sodium 143, Potassium 4.5, BUN 45 H, Creatinine 3.21 H, Glucose 130 H, Magnesium 2.0, Total Bilirubin 0.4, AST 17, ALT 31, Alkaline Phosphatase 109
[2020-06-30] MEDS: ALBUTEROL 2.5 MG/3 ML NEB SOL NEB SCH ×2 (13:18→20:10)
[2020-06-30] MEDS: IPRATROPIUM BROM 0.5MG/2.5ML NEB SCH ×2 (13:18→20:10)
[2020-06-30 18:40] LABS: Hematocrit 28.1 % (39.6-49.0)
[2020-06-30] MEDS ORDERED: HOME MED 1 EA UNK (Simvastatin [Simvastatin] 40 MG) PO SCH (21:00)
[2020-06-30] MEDS: ATORVASTATIN 20 MG TAB PO SCH (21:26)
[2020-07-01 06:01] LABS: Absolute Lymphocytes (CBC) 0.9 K/uL (0.7-4.9); Basophils % 0.8 % (0-1.3); Hematocrit 27.9 % (39.6-49.0); Lymphocytes % 7.9 % (15.3-44.8); MPV 8.8 fL (7.6-11.3); RBC Red Blood Cell Count 3.13 M/uL (4.33-5.43)
[2020-07-01 06:23] LABS: Albumin 3.2 g/dL (3.4-5.0); Phosphorus 4.5 mg/dL (2.5-4.9); Potassium 3.7 mmol/L (3.5-5.1)
[2020-07-01] MEDS: INSULIN -REGULAR HUMAN 50 UNIT/0.5 ML ML SQ SCH ×4 (07:30→21:00)
[2020-07-01] MEDS: ALBUTEROL 2.5 MG/3 ML NEB SOL NEB SCH ×3 (08:00→20:15)
[2020-07-01] MEDS: IPRATROPIUM BROM 0.5MG/2.5ML NEB SCH ×3 (08:00→20:15)
[2020-07-01] MEDS: FUROSEMIDE 40 MG/4 ML VIAL IV SCH ×2 (08:58→16:39)
[2020-07-01] MEDS: TAMSULOSIN 0.4 MG SR CAP PO SCH (08:58)
[2020-07-01] MEDS: ASPIRIN 81 MG CHEWABLE TABLET PO SCH (08:59)
[2020-07-01] MEDS: NIACIN 500 MG SR TAB PO SCH ×2 (08:59→21:00)
[2020-07-01] MEDS: METOPROLOL TAR 25 MG TAB PO SCH ×2 (08:59→21:30)
[2020-07-01] MEDS: AMLODIPINE 10 MG TAB PO SCH (08:59)
--- NOTE | 2020-07-01 10:54 | RAD REPORT ---
EXAM DESCRIPTION: CT - Abdomen Pelvis Wo Contrast - 07/01/2020 10:11 am CLINICAL HISTORY: Abdominal pain /hydronephrosis COMPARISON: Ultrasound June 29, 2020 TECHNIQUE: Computed axial tomography of the abdomen and pelvis was obtained. IV and oral contrast we re not requested. All CT scans are performed using dose optimization technique as appropriate and may include automated exposure control or mA/KV adjustment according to patient size. FINDINGS: The evaluation of solid organs, vessels and bowel is limited secondary to the lack of con trast administration. Multiple, bilateral pulmonary nodules vary in size from a few millimeters to 9 millimeters Small pleural effusions right greater than left liver, spleen, pancreas grossly normal. Small right adrenal adenoma. Hypertrophy of the adrenal glands. Moderate to marked bilateral hydronephrosis. Proximal ureters are dilated. Soft tissue surrounds the abdominal aorta at this level obstructing each ureter. The soft tissue extends to the very proximal l eft common iliac artery. The prostate gland is moderately to markedly enlarged. A Sotelo catheter has its balloon within the pr ostatic urethra Sigmoidectomy. No evidence of diverticulitis. Normal appendix. Small right inguinal hernia contains f at. Spondylosis involves lumbar spine resulting in spinal stenosis. Diffuse edema within subcutaneous tis sues. Several small areas of sclerosis involves the bones. 11 millimeter left external iliac lymph node Calcification involves and ectatic celiac artery. The width measures 17 millimeters IMPRESSION: Soft tissue in the retroperitoneum obstructs the proximal ureters bilaterally resulting in moderate to marked hydronephrosis. 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 Another consideratio n but probably less likely is that the soft tissue represents lymphadenopathy. Malposition of the Sotelo catheter within the prostatic urethra Multiple, bilateral pulmonary nodules probably metastases. Patient has had a sigmoidectomy. If this was secondary to neoplasm the lung nodules could be metastas es from colon Several small areas of sclerosis involving the bones. Left common iliac lymph node. Prostatic neoplas m with metastases can cause this appearance Charge nurse Merly was notified
[2020-07-01] MEDS: ENOXAPARIN 30 MG/0.3 ML SQ SCH (11:00)
--- NOTE | 2020-07-01 11:31 | RAD REPORT ---
EXAM DESCRIPTION: Kushal Single View07/01/2020 11:09 am CLINICAL HISTORY: Shortness of breath COMPARISON: June 29 FINDINGS: Small to moderate right and small left pleural effusions Right basilar opacity may represent atelectasis or pneumonia Bilateral pulmonary nodules again demonstrated. The heart is mildly enlarged.
--- NOTE | 2020-07-01 19:59 | CON ---
Date of Consultation: 06/30/2020 Reason For Consultation: Acute congestive heart failure. History Of Present Illness: Mr. Fernandes is a 74-year-old male, known to us from previous office visits and admission. He came in with shortness of breath that has been going on for 3 days. He had dyspn ea on exertion, did not really have any chest pain, denied any nausea, vomiting, or diaphoresis. Den ied any PND, but did have orthopnea and pedal edema. He denied any palpitations or syncope. Denied any fever, chills, or cough. He has had his medication adjusted recently mostly because of his renal status. He has been taking his diuretic on an as-needed basis. Allergies: NONE. Review of Systems: Negative. Social History: Negative. Family History: Noncontributory. Past Medical History: CAD status post stent, diabetes, hypertension, dyslipidemia, benign prostatic hypertrophy. Medications: Metformin, simvastatin, aspirin, metoprolol, tamsulosin, and Januvia. Physical Examination: Vital Signs: His weight is 228 pounds. His vital signs were stable. He was afebrile. He was in no rmal sinus rhythm with a first-degree AV block. HEENT: Negative. Neck: Supple with no bruit. Chest: Clear to auscultation and percussion. On the right, he has some rales. No rales on the left . Cardiac: Regular rhythm and rate with S4 gallops. No murmurs or rubs. Abdomen: Benign. Extremities: 1+ edema. Skin: Dry and intact. Neurologic: He was nonfocal. Pulses were weak in the dorsalis pedis and posterior tibial area. Diagnostic Data: His creatinine was 3.51. His hemoglobin is 9.8. His glucose was 133. His troponi n was negative. His BNP was 16,844. Chest x-ray revealed small bilateral pleural effusion, bilatera l pulmonary nodules, could be pulmonary edema versus infection versus metastatic disease. Renal ultr asound showed moderate bilateral hydronephrosis without any change from previous studies. Renal cons ultation recommended stopping metformin, stopping lisinopril because of his renal insufficiency. He is presently on inhalers, amlodipine, aspirin, Lipitor, Lovenox, Lasix, metoprolol, and tamsulosin. Impression And Plan: 1.Acute on chronic diastolic congestive heart failure. 2.Acute on chronic renal failure. 3.History of coronary artery disease, status post stents. 4.Diabetes. 5.Hypertension. 6.Dyslipidemia. 7.Benign prostatic hypertrophy. 8.Tobacco abuse. I think it would be very reasonable to stop the metformin and stop lisinopril for his renal dysfuncti on. Continue the IV Lasix. Continue his other regimen. No plan for any intervention from a coronar y standpoint right now. I think he needs to have an echocardiogram in the near future. There is an extensive connective tissue disease workup pending including JENNIFER, complement level, hepatitis panel, and I will leave that up to Dr. Guerrero and Nephrology to follow. I will continue to follow him jean VILLASEÑOR/JUHI Voice ID: [id number] Report ID: [id number]
--- NOTE | 2020-07-01 20:53 | PN ---
Date of Progress Note: 07/01/2020 Mr. Fernandes has been followed for acute on chronic diastolic congestive heart failure, acute renal fail ure, possible pneumonia, possible lung nodules by x-ray, hypertension, dyslipidemia, diabetes as well as coronary artery disease that has been stable. He has been followed by Nephrology for renal failu re. His last creatinine had improved from 3.51 to 3.36. His last hemoglobin is 9.2, his last white count is 11,000. He is off metformin. He is off lisinopril because of his kidney dysfunction. He h as extensive connective tissue disease workup pending. His BNP is 16,844. He remains on inhalers, a mlodipine, aspirin, Lipitor, Lovenox, Lasix, and tamsulosin. I will suggest that he gets a chest CT to make sure there are no other issues from a pulmonary standpoint. I think another echocardiogram w ould be reasonable. I agree with his present regimen. I will continue to follow. I will discuss th e case further with Nephrology and Dr. Guerrero. CHARLEEN/JUHI Voice ID: [id number] Report ID: [id number]
[2020-07-01] MEDS: ATORVASTATIN 20 MG TAB PO SCH (21:30)
--- NOTE | 2020-07-01 22:28 | PN ---
Date of Progress Note: 07/01/2020 The patient seems to be somewhat better as far as his breathing is concerned. However, he was seen b y Nephrology and is scheduled for a scan in the a.m. to further evaluate his kidney function, which h as deteriorated over the past few months. Possibly DICTATION ENDS HERE. HR/MODL Voice ID: [id number] Report ID: [id number]
--- NOTE | 2020-07-01 23:43 | HP ---
Date of Admission: 06/29/2020 Entrance Complaint: Shortness of breath. History Of Present Illness: The patient presented to the emergency room with increasing dyspnea and peripheral edema. The patient had a similar episode approximately 6 weeks ago which necessitated hos pitalization in ICU and marked diuresis; however, at that time, he had a markedly elevated blood pres sure. He states that he has been doing reasonably well on his blood pressure and presented with main ly dyspnea, not to the extent of the last hospitalizations. However, in the problem shaunnai leeann, he was seen by Urology. We are awaiting further results, but his creatinine has been slowly elev ating and due to the combination of the CHF and the renal dysfunction, he was admitted for more inten sive care, given breathing treatments and IV diuresis in the emergency room, which showed significant improvement. He stated actually events that precipitated his presentation was only a couple of hour s before he came, although he did say that he has been somewhat dyspneic over the past few weeks. Past History: As mentioned above, the patient has a long history of coronary artery disease, diabete s, peripheral vascular disease, both of which have been relatively under control. Family History: Noncontributory. Social History: Nonsmoker, nondrinker. Physical Examination: General: The patient is slightly dyspneic elderly male with slight use of accessory muscles to breat he when seen. Vital Signs: Basically stable vital signs. Head and Neck: Normocephalic. Pupils equal and reactive to light and accommodation. Fundi negative . Trachea midline. Thyroid not palpable. ENT: Negative. Chest: High-pitched rhonchi and rales bilaterally, as mentioned slight use of accessory muscles to b reathe. Cardiovascular: PMI just outside midclavicular line. Heart sounds normal. Peripheral pulses are pr esent and equal bilaterally. Abdomen: No organomegaly. Bowel sounds present. Extremities: +2 pitting edema bilaterally. Rectal: Deferred. Impression: Acute exacerbation of congestive heart failure, combination of systolic and diastolic dy sfunction, tle-hmkorae-bxaebdnks diabetes mellitus good control, hypertension good control, benign pr ostatic hyperplasia, and renal insufficiency. Plan: The patient will be admitted and diuresed. Consultation obtained with Nephrology. Depending on the results, further intervention may be necessary. HR/MODL Voice ID: [id number]
--- NOTE | 2020-07-01 23:49 | PN ---
Date of Progress Note: 06/30/2020 The patient states his breathing has considerably improved, although he is still dyspneic with exerti on. He has had a good operative frequent and he feels like he is not emptying. When he went to the bathroom to have a bowel movement, he noticed some bright red blood and a catheter, which had been in serted prior to this episode did reveal the marked hematuria. CBC at that time showed stable and aft er couple hours of the hematuria, the urine did clear somewhat. He is slated for a CT scan of the ab domen in the a.m. We will continue to diurese and Cardiology will evaluate as well. HR/MODL Voice ID: [id number] Report ID: [id number]
--- NOTE | 2020-07-02 01:04 | PN ---
Date of Progress Note: 06/30/2020 The patient was down for his CAT scan when he started bleeding again. The patient has a catheter wie lded into the prosthetic area, probable cause of the hematuria, it was removed. Hematuria persisted for first couple of hours and then started to clear. A CAT scan revealed multiple possible etiologie s, ranging from BPH to retroperitoneal fibrosis. His creatinine basically was the same. Depending o n the CHF response, the probability of the patient needing a procedure is likely, I will discuss furt her with both Nephrology and Urology. There is no urologist available. This will be done on an outp atient basis. In the meantime, we will decrease the Lasix, bladder scan was also done and revealed r etention max of just over 150, also repeat a PSA in the a.m. HR/MODL Voice ID: [id number] Report ID: [id number]
[2020-07-02 05:15] LABS: Absolute Lymphocytes (CBC) 1.1 K/uL (0.7-4.9); Hematocrit 26.7 % (39.6-49.0); Lymphocytes % 10.3 % (15.3-44.8); MPV 8.6 fL (7.6-11.3); RBC Red Blood Cell Count 3.01 M/uL (4.33-5.43)
[2020-07-02 05:45] LABS: Albumin 3.2 g/dL (3.4-5.0); Phosphorus 5.8 mg/dL (2.5-4.9); Potassium 3.8 mmol/L (3.5-5.1)
[2020-07-02] MEDS: INSULIN -REGULAR HUMAN 50 UNIT/0.5 ML ML SQ SCH ×4 (07:30→20:35)
[2020-07-02] MEDS: ASPIRIN 81 MG CHEWABLE TABLET PO SCH (08:43)
[2020-07-02] MEDS: AMLODIPINE 10 MG TAB PO SCH (08:43)
[2020-07-02] MEDS: TAMSULOSIN 0.4 MG SR CAP PO SCH (08:43)
[2020-07-02] MEDS: ENOXAPARIN 30 MG/0.3 ML SQ SCH (08:44)
[2020-07-02] MEDS: METOPROLOL TAR 25 MG TAB PO SCH ×2 (08:44→20:37)
[2020-07-02] MEDS: NIACIN 500 MG SR TAB PO SCH ×2 (08:45→20:36)
[2020-07-02] MEDS ORDERED: FUROSEMIDE 40 MG/4 ML VIAL IV SCH (09:00)
[2020-07-02] MEDS: IPRATROPIUM BROM 0.5MG/2.5ML NEB SCH ×3 (09:03→19:50)
[2020-07-02] MEDS: ALBUTEROL 2.5 MG/3 ML NEB SOL NEB SCH ×3 (09:03→19:50)
--- NOTE | 2020-07-02 11:09 | PN ---
Date of Progress Note: 07/01/2020 Chief Complaint: Chronic kidney disease, congestive heart failure, cardiorenal syndrome. Subjective: The patient is a 74-year-old man with history of congestive heart failure, diabetes jelena itus, coronary artery disease, hypertension. He is admitted for CHF exacerbation. He was complainin g of severe shortness of breath. He has history of pneumonia and was treated with antibiotic back in May. On admission, the patient was found to have acute on chronic kidney injury, moderately gavin re. Creatinine level was 3.2. Previous baseline creatinine was ranging 1.5-2.0. The patient had ul trasound done in June, which showed bilateral hydronephrosis. Review of Systems: The patient denies fever or chills. Physical Examination: Lungs: Diminished breath sounds at bases. Heart: S1, S2. Abdomen: Soft, benign. Extremities: Edema present in both legs. Impression And Plan: 1.Acute on chronic kidney injury, progressively worse renal function, history of bilateral hydroneph rosis. Continue Sotelo catheter for possible bladder outlet obstruction. The patient will have abdom en and pelvis CT scan for stone protocol to rule out kidney stone. 2.We will continue diabetic medication, although metformin is taken off because of risk of metabolic acidosis with lactic acidosis. 3.Hypertension. Lisinopril was stopped in view of acute kidney injury. Continue to monitor blood p ressure and adjust medication. 4.Congestive heart failure exacerbation. The patient will have Lasix to adjust for volemia control. 5.Diabetes mellitus. Continue insulin. 6.Hypertension. Blood pressure is relatively good controlled. Monitor blood pressure, adjust medic ation, and continue furosemide for congestive heart failure. The patient will continue beta-yohannes for congestive heart failure an d blood pressure control. OWEN/JUHI Voice ID: [id number] Report ID: [id number]
--- NOTE | 2020-07-02 14:06 | PN ---
Date of Progress Note: 07/02/2020 The patient seems stabilized as for as his breathing is concerned and we will see if he requires oxyg en at home at the moment on 3. He is quite comfortable; however, he has not been done much in the wa y of activity and Physical Therapy will be consulted to see what he can tolerate and the other proble ms related to his renal systems are basically the same as well. He has had intermittent hematuria. He is voiding freely residual and as mentioned was just over 150; however, the fact of the abnormal C T scan and continue with marked elevation of his creatinine, obviously he has continued to see urolog ist, unsure whether bright red bleeding is from the disease process or the insertion of the catheter. We will change the Lasix to p.o. in the probability of he could go home. We will also discuss his case with urologist in [place] either he was seen there, transferred there or perhaps he will come do wn here as we have no urologist currently available. His H and H does seem stable. The question of pulmonary nodules also comes up since the patient was a smoker up until a couple of weeks ago. It co mplicates matters; however, he did have a resection of his sigmoid colon over 5 years ago to his know reinier and was benign. The other possibility is prostatic. He did have marked elevations in his last PSA; however, as mentioned, there was manipulation with catheter. In any event, we will [facility]. We will consult Pulmonology and determine with oxygen requirements and diuresis neces sity at home and trying correlate the Urology as soon as possible. HR/MODL Voice ID: [id number] Report ID: [id number]
[2020-07-02] MEDS: FUROSEMIDE 40 MG TABLET PO SCH (16:28)
[2020-07-02] MEDS: ATORVASTATIN 20 MG TAB PO SCH (20:36)
--- NOTE | 2020-07-02 22:06 | PN ---
Date of Progress Note: 07/02/2020 Chief Complaint: Chronic kidney disease, congestive heart failure, cardiorenal syndrome. Subjective: The patient is a 74-year-old man with history of congestive heart failure, diabetes jelena itus, coronary artery disease, hypertension. He is admitted for congestive heart failure exacerbatio n, was complaining of severe shortness of breath. He has history of pneumonia, was treated with anti biotic back in May. On admission, he was found to have acute kidney injury. Creatinine level was up to 3.3. Baseline creatinine is 1.5 to 2.0. Review of Systems: The patient denies fever or chills. Physical Examination: Lungs: Diminished breath sounds at bases. Heart: S1, S2. Abdomen: Soft, benign. Extremities: Edema present in both legs. Impression And Plan: 1.Acute on chronic kidney injury, progressively worse renal function. The patient has history of bi lateral hydronephrosis. Plan is to continue Ostelo catheter. The patient has a CT scan done at some point, showed bilateral hydronephrosis. I recommended urology consultation. 2.Hypertension. Lisinopril was stopped in view of acute kidney injury. Continue to monitor blood p ressure and adjust medication. 3.Congestive heart failure exacerbation. The patient will have adjusted dose of Lasix for adequate volemia control. 4.Diabetes mellitus. Continue insulin. 5.Hypertension. Blood pressure is relatively in good control. Continue low-sodium diet and furosemide to control congestive heart failure. EB/MODL Voice ID: [id number] Report ID: [id number]
[2020-07-03 04:29] LABS: Absolute Lymphocytes (CBC) 0.7 K/uL (0.7-4.9); Basophils % 0.9 % (0-1.3); Hematocrit 24.3 % (39.6-49.0); Lymphocytes % 6.5 % (15.3-44.8); MPV 8.8 fL (7.6-11.3); RBC Red Blood Cell Count 2.76 M/uL (4.33-5.43)
[2020-07-03 04:41] LABS: Phosphorus 5.6 mg/dL (2.5-4.9); Potassium 3.5 mmol/L (3.5-5.1)
[2020-07-03] MEDS: ALBUTEROL 2.5 MG/3 ML NEB SOL NEB SCH ×3 (07:25→19:50)
[2020-07-03] MEDS: IPRATROPIUM BROM 0.5MG/2.5ML NEB SCH ×3 (07:25→19:50)
[2020-07-03] MEDS: INSULIN -REGULAR HUMAN 50 UNIT/0.5 ML ML SQ SCH ×4 (07:30→20:19)
[2020-07-03] MEDS: ENOXAPARIN 30 MG/0.3 ML SQ SCH (09:00)
[2020-07-03] MEDS: NIACIN 500 MG SR TAB PO SCH ×2 (09:00→20:53)
[2020-07-03] MEDS: FUROSEMIDE 40 MG TABLET PO SCH ×2 (09:09→17:02)
[2020-07-03] MEDS: METOPROLOL TAR 25 MG TAB PO SCH ×2 (09:09→20:50)
[2020-07-03] MEDS: AMLODIPINE 10 MG TAB PO SCH (09:10)
[2020-07-03] MEDS: ASPIRIN 81 MG CHEWABLE TABLET PO SCH (09:10)
[2020-07-03] MEDS: TAMSULOSIN 0.4 MG SR CAP PO SCH (09:10)
--- NOTE | 2020-07-03 12:42 | P.CNS ---
Date of Consult: 07/03/20 Reason for Consult: Abnormal CT scan possible COPD Chief Complaint: SOB History of Present Illness: Patient is 74 years of age [place] quit smoking smoked over a pack a day admitted with acute shortness of breath he is doing better he uses Xopenex at home no p rior history of COPD is not on any oxygen treatment found to have multiple pulmonary nodules suggestive of metastatic lung disease Allergies No Known Allergies Allergy (Verified 04/11/19 15:52) Home Medications: Simvastatin 40 mg PO BEDTIME 04/11/19 Tamsulosin [Flomax*] 0.4 mg PO DAILY 04/11/19 lisinopriL [Prinivil*] 20 mg PO DAILY 04/11/19 Aspirin [Jennifer Chewable Aspirin] 81 mg PO DAILY 05/10/20 Niacin 500 mg PO BID 05/10/20 Rivaroxaban [Xarelto] 20 mg PO DAILY 05/10/20 Amlodipine [Norvasc*] 10 mg PO DAILY #30 tab 05/11/20 Sitagliptin Phosphate [Januvia] 25 mg PO DAILY #30 tablet 05/11/20 Albuterol Sulfate [Proair Respiclick] 90 mcg IH PRN 06/29/20 Furosemide [Lasix*] 1 tab PO DAILY 06/29/20 Levalbuterol Tartrate [Levalbuterol Tartrate Hfa] 2 puff IH Q4H 06/29/20 Metformin HCl [Glucophage] 1 tab PO BID 06/29/20 Metoprolol Tartrate [Lopressor*] 1.5 tab PO BID 06/29/20 - Past Medical/Surgical History Diabetic: Yes -: Diabetes mellitus type 2, non insulin dependent -: Hypertension -: CAD with prior stents -: Hyperlipidemia -: BPH -: Tobacco abuse -: 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 He currently lives by himself. He is independent. - Family History Mother Medical History: Heart disease, Stroke Father Medical History: Heart disease - Social History Smoking Status: Unknown if ever smoked Alcohol use: No CD- Drugs: No Caffeine use: Yes Review of Systems 10-point ROS is otherwise unremarkable General: Weakness Respiratory: Shortness of Breath Cardiovascular: Edema Physical Examination Temp Pulse Resp BP Pulse Ox 98 F 80 20 127/59 L 99 07/03/20 08:00 07/03/20 09:09 07/03/20 08:00 07/03/20 09:09 07/03/20 08:00 General: Alert, In no apparent distress, Oriented x3 Respiratory: Clear to auscultation bilaterally, Diminished Cardiovascular: Regular rate/rhythm, Normal S1 S2, Edema Gastrointestinal: Normal bowel sounds, Soft and benign - Problems (1) COPD (chronic obstructive pulmonary disease) Current Visit: Yes Status: Acute Plan: I suspect that the patient has COPD from heavy tobacco abuse over a pack and half any quit this year in June patient has chronic renal failure has become progressively worse no evidence of sepsis 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 with marked hydronephrosis patient has bilateral pleural effusion right worse than left more nodules visible on the right side patient seen by Nephrology Terrell inhibitors have been discontinued optimize bronchodilator therapy evaluate for home O2 apparently he has multiple mets to the bone sclerotic metastases may be from his prostate cancer as enlarged prostate PSA significantly elevated retroperitoneal fibrosis is probably use secondary common causes includes carcinoid Hodgkin's sarcoma was colorectal cancers and prostate cancer rate may be primary from a combination of smoking 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
[2020-07-03 16:31] VITALS: BMI 29.2
[2020-07-03 18:29] LABS: Hematocrit 24.6 % (39.6-49.0)
[2020-07-03 20:08] LABS: Hepatitis C Virus RNA (PCR)log <1.18 log IU/mL
[2020-07-03] MEDS: ATORVASTATIN 20 MG TAB PO SCH (20:50)
[2020-07-03] MEDS: predniSONE 20 MG TAB PO SCH (20:50)
[2020-07-04] MEDS ORDERED: FUROSEMIDE 40 MG/4 ML VIAL ONE (06:20)
[2020-07-04 06:21] LABS: Protime INR 1.11
[2020-07-04 06:22] LABS: Absolute Lymphocytes (CBC) 0.4 K/uL (0.7-4.9); Basophils % 0.5 % (0-1.3); Hematocrit 25.1 % (39.6-49.0); Lymphocytes % 4.2 % (15.3-44.8); MPV 8.8 fL (7.6-11.3); RBC Red Blood Cell Count 2.84 M/uL (4.33-5.43)
[2020-07-04 06:34] LABS: Phosphorus 5.7 mg/dL (2.5-4.9); Potassium 3.9 mmol/L (3.5-5.1)
[2020-07-04] MEDS: INSULIN -REGULAR HUMAN 50 UNIT/0.5 ML ML SQ SCH ×4 (07:30→20:31)
[2020-07-04] MEDS: IPRATROPIUM BROM 0.5MG/2.5ML NEB SCH ×3 (08:55→19:15)
[2020-07-04] MEDS: ALBUTEROL 2.5 MG/3 ML NEB SOL NEB SCH ×3 (08:55→19:15)
[2020-07-04] MEDS: NIACIN 500 MG SR TAB PO SCH ×2 (09:00→20:28)
[2020-07-04] MEDS: FUROSEMIDE 40 MG TABLET PO SCH ×3 (09:00→20:27)
[2020-07-04] MEDS: ENOXAPARIN 30 MG/0.3 ML SQ SCH (09:00)
[2020-07-04] MEDS: AMLODIPINE 10 MG TAB PO SCH (09:00)
[2020-07-04 09:01] LABS: Platelet Estimate ADEQ
[2020-07-04 09:02] LABS: Blood Morphology Comment NOTED (NOT SEEN); Hypochromasia 1+
--- NOTE | 2020-07-04 09:23 | PN ---
Date of Progress Note: 07/03/2020 Chief Complaint: Acute kidney injury, cardiorenal syndrome, obstructive uropathy. Subjective: Patient was found to have hydronephrosis. He is undergoing Lasix nuclear medicine scan. I requested consult with Urology and patient is awaiting procedure for obstructive uropathy, althou gh patient may need to be transferred to higher level of care. Review of Systems: Denies PND or orthopnea. Physical Examination: Lungs: Diminished breath sounds at bases. Heart: S1 and S2. Abdomen: Soft, benign. Extremities: Edema present in both legs. Laboratory Data: Sodium 137, potassium 3.5, chloride 102, CO2 24, BUN 72, creatinine 3.91, glucose 1 49, phosphorus 5.6. Impression And Plan: 1.Acute on chronic kidney injury. Renal functions have not improved and patient will need a procedu re for obstructive uropathy. Patient had a CT scan for stone protocol and it showed bilateral hydron ephrosis. Patient has Sotelo catheter. 2.Hypertension. Continue blood pressure medication. Avoid angiotensin receptor yohannes. 3.Acute on chronic kidney injury. Patient will have renal panel to evaluate electrolytes abnormalities. At this point, there is no metabolic acidosis and potassium lev el is within normal limits. EB/MODL Voice ID: [id number] Report ID: [id number]
--- NOTE | 2020-07-04 09:31 | ECHO ---
HEIGHT: 6 ft 1 in WEIGHT: 223 lb 12.8 oz DATE OF STUDY: 07/03/[address]: Jorge Stanley MD 2-DIMENSIONAL: YES M.MODE: YES DOPPLER: YES COLOR FLOW: YES TDS: NO PORTABLE: NO DEFINITY: NO BUBBLE STUDY: NO DIAGNOSIS: RULE OUT CONGESTIVE HEART FAILURE CARDIAC HISTORY: CATHERIZATION: NO SURGERY: NO PROSTHETIC VALVE: NO PACEMAKER: NO MEASUREMENTS (cm) DIASTOLIC (NORMALS) SYSTOLIC (NORMALS) IVSd 1.0 (0.6-1.2) LA Diam 4.2 (1.9-4.0) LVEF 35-40% LVIDd 6.3 (3.5-5.7) LVIDs 5.2 (2.0-3.5) %FS 17% LVPWd 1.2 (0.6-1.2) Ao Diam 2.8 (2.0-3.7) 2 DIMENSIONAL ASSESSMENT: RIGHT ATRIUM: NORMAL LEFT ATRIUM: ENLARGED RIGHT VENTRICLE: NORAML LEFT VENTRICLE: DEPRESSED LEFT VENTRICULAR EJECTION FRACTION TRICUSPID VALVE: NORMAL MITRAL VALVE: MILD MITRAL REGURGITATION PULMONIC VALVE: MILD PULMONIC INSUFFICIENCY AORTIC VALVE: NORMAL PERICARDIAL EFFUSION: AORTIC ROOT: NORMAL LEFT VENTRICULAR WALL MOTION: ANTERIOR WALL HYPOKINESIS, AND ANTEROSEPTAL AKINESIS. DOPPLER/COLOR FLOW: DIASTOLIC DYSFUNCTION. COMMENTS: MODERATLEY DEPRESSED LEFT VENTRICULAR EJECTION FRACTION 35-40%. ANTERIOR WALL HYPOKINESIS AND ANTEROSEPTAL AKINESIS. MILD MITRAL REGURGITATION. LEFT ATRIAL ENLARGEMENT. TECHNOLOGIST: RODERICK ZUNIGA
--- NOTE | 2020-07-04 10:46 | RAD REPORT ---
EXAM DESCRIPTION: NM - Kidney Imag W/Flow F W - 07/04/2020 9:00 am CLINICAL HISTORY: Hydronephrosis COMPARISON: July 01, 2020 cat scan TECHNIQUE: 10.9 millicuries technetium MAA G3 administered intravenously. Perfusion, concentration e xcretion images several abdomen pelvis obtained. 10 minutes into the examination 40 milligrams Lasix administered intravenously FINDINGS: There is minimal accumulation of radiotracer within the left kidney throughout the examina tion The right kidney demonstrates delayed radiotracer uptake on perfusion, concentration and excretion im ages. Izzvxtdu-ok-goudbd hydronephrosis is present. After administration of the Lasix the contrast persists within the calices. No contrast is seen withi n the right renal pelvis or right ureter. Throughout the examination there is progressive radiotracer uptake within the right kidney. IMPRESSION: High-grade mechanical obstruction proximal right ureter Very little accumulation of radiotracer within the left kidney throughout the examination indicating extremely poor function
[2020-07-04] MEDS ORDERED: propofoL 200 MG/20 ML VIAL IV ONE ×2 (11:33→12:10)
[2020-07-04] MEDS ORDERED: FENTANYL CITR 100 MCG/2 ML ONE ×3 (11:33→13:20)
[2020-07-04] MEDS ORDERED: MIDAZOLAM HCL 2 MG/2 ML INJ ONE (11:33)
[2020-07-04] MEDS ORDERED: LIDOCAINE 1% MPF 5 ML VIAL ONE ×2 (11:34→12:10)
[2020-07-04] MEDS ORDERED: LIDOCAINE JELLY 2%- 5 ML TUBE ONE (11:34)
[2020-07-04] MEDS ORDERED: NA CHLORIDE 0.9% 1,000 ML ONE (11:55)
[2020-07-04] MEDS ORDERED: ONDANSETRON 4 MG/2 ML VIAL ONE (12:11)
[2020-07-04] MEDS ORDERED: CEFTRIAXONE/SWI 1gm 1 GM/10 ML SYR IV ONE (12:15)
--- NOTE | 2020-07-04 12:56 | PN ---
Date of Progress Note: 07/04/2020 Subjective: The patient was admitted with acute kidney injury, found to have obstructive uropathy. The patient was started on diuresis. The patient's CT showed bilateral hydro. The patient is scheduled for cystoscopy with stent placement today. Physical Examination: Vital Signs: Blood pressure 120/82, pulse of 88. The patient had good urine output of 2700. Chest: Faint rales on both bases. Heart: S1, S2. Systolic murmur. Abdomen: Soft, nontender. Extremities: +3 edema. Laboratory Data: WBC 9.9, H and H 8.6/25.1, platelets 246. Sodium 137, potassium 3.9, bicarb 22, BUN 81, creatinine 4.6, GFR 12, calcium 7.8, phosphorus 5.7, albumin 3. Serum protein electrophoresis is still pending. P/C ratio is 0.5. Serology is still pending. Rheumatoid factor was negative, complement within normal limits. Current Medications: The patient on its include; 1. Aspirin. 2. Ceftriaxone. 3. Flomax. 4. Lovenox. 5. Amlodipine 10 mg. 6. Metoprolol. 7. Tylenol. 8. Lasix 40 b.i.d. 9. Zofran. 10. Prednisone. Assessment And Plan: 1. Acute kidney injury, multifactorial, secondary to cardiorenal/obstructive uropathy, nonoliguric. No hyperkalemia or acidosis. I do not see the need to initiate renal replacement therapy. The patient is going to undergo stent placement today and we will follow up serology. 2. Hypertension, controlled, optimal. We will utilize the blood pressure for more diuresis given the peripheral edema. I am going to go ahead and discontinue calcium channel yohannes. 3. Anasarca secondary to renal failure. TSH within normal limit. Echocardiogram was done with low ejection fraction of 40% and hypokinesia. We will treat Cardiorenal. I am going to go ahead and increase his Lasix to 3 times a day to establish more negative balance and today the patient is going to get stent placement. Possibly, the patient is going to develop post obstruction diuresis. We will follow up. 4. Congestive heart failure. We will follow up with Cardiology. Time spent coordinating the care, discuss him with all of our team members including othere recruitment consultant and hospitalist and [id number] with the patient and please go out of 35 min JESSIKA Voice ID: [id number] Report ID: [id number] MTDRaheem
--- NOTE | 2020-07-04 14:51 | RAD REPORT ---
EXAM DESCRIPTION: RAD - Cystography - 07/04/2020 2:43 pm CLINICAL HISTORY: CYSTO COMPARISON: No comparisons FINDINGS: Total fluoro time: 0.55 minutes
[2020-07-04] MEDS: predniSONE 20 MG TAB PO SCH ×2 (15:41→20:31)
[2020-07-04] MEDS: METOPROLOL TAR 25 MG TAB PO SCH ×2 (15:41→20:26)
[2020-07-04] MEDS: TAMSULOSIN 0.4 MG SR CAP PO SCH (15:42)
[2020-07-04] MEDS: ASPIRIN 81 MG CHEWABLE TABLET PO SCH (15:43)
[2020-07-04] MEDS: ATORVASTATIN 20 MG TAB PO SCH (20:30)
[2020-07-05 04:16] LABS: Absolute Lymphocytes (CBC) 0.3 K/uL (0.7-4.9); Basophils % 0.1 % (0-1.3); Hematocrit 26.3 % (39.6-49.0); Lymphocytes % 3.6 % (15.3-44.8); MPV 8.6 fL (7.6-11.3); RBC Red Blood Cell Count 2.98 M/uL (4.33-5.43)
[2020-07-05] MEDS: ALBUTEROL 2.5 MG/3 ML NEB SOL NEB SCH ×3 (08:02→19:46)
[2020-07-05] MEDS: IPRATROPIUM BROM 0.5MG/2.5ML NEB SCH ×3 (08:02→19:46)
[2020-07-05] MEDS: INSULIN -REGULAR HUMAN 50 UNIT/0.5 ML ML SQ SCH ×4 (08:41→20:49)
[2020-07-05] MEDS: TAMSULOSIN 0.4 MG SR CAP PO SCH (08:42)
[2020-07-05] MEDS: METOPROLOL TAR 25 MG TAB PO SCH ×2 (08:42→20:47)
[2020-07-05] MEDS: predniSONE 20 MG TAB PO SCH ×2 (08:43→20:47)
[2020-07-05] MEDS: FUROSEMIDE 40 MG TABLET PO SCH ×3 (08:43→20:47)
[2020-07-05] MEDS: ASPIRIN 81 MG CHEWABLE TABLET PO SCH (08:43)
[2020-07-05] MEDS: NIACIN 500 MG SR TAB PO SCH ×2 (08:49→20:46)
[2020-07-05] MEDS: ENOXAPARIN 30 MG/0.3 ML SQ SCH ×2 (08:50→08:53)
--- NOTE | 2020-07-05 12:30 | PN ---
Date of Progress Note: 07/05/2020 Subjective: The patient was admitted with acute kidney injury, anasarca secondary to obstructive uropathy, over volume. The patient was started on diuresis, had good urine output. Physical Examination: Vital Signs: Blood pressure 104/61, pulse of 85. The patient had good urine output of 1500. Chest: Decreased air entry bilateral base. Heart: S1, S2. Regular. Systolic murmur. Abdomen: Soft, nontender. Extremities: +2 edema. Laboratory Data: WBC 9.5, H and H 9/26.3, platelet 287. Sodium 136, potassium 4, bicarb 26, BUN 73, creatinine 3.9, GFR down to 15 marginal improvement. Calcium 8.3. Serum protein electrophoresis is still pending. PTH 135, P/C ratio 0.5. Current Medications: The patient on include; 1. Aspirin. 2. Ceftriaxone. 3. Flomax. 4. Lovenox. 5. Metoprolol 37.5 b.i.d. 6. Atorvastatin. 7. Lasix 40 t.i.d. Assessment And Plan: 1. Acute kidney injury secondary to obstructive uropathy, on the recovery phase. Currently, plateaued, still over volume. I am going to continue current diuresis. The patient lost 8 pounds from yesterday. We will continue to monitor the patient. If kidney function starts improving by tomorrow, hopefully the patient can be started for discharge planning. 2. Obstructive uropathy. I agree with Flomax, status post stent placement. We will follow up with Urology. 3. Anasarca secondary to renal failure. TSH within normal limit. Minimal proteinuria. Continue diuresis. 4. Deconditioning. Continue PT, OT. 5. Congestive heart failure, on room air. Significant peripheral edema as above. Time spent coordinating the care, discuss him with all of our team members including othere recruiting operations consultant and hospitalist and [id number] with the patient and please go out of 35 min JOSE LUIS/JUHI Voice ID: [id number] Report ID: [id number] POLLY
--- NOTE | 2020-07-05 15:06 | PN ---
Date of Progress Note: 07/04/2020 The patient was seen while awaiting surgery. Plan is to put in stents, re-evaluate the effectiveness . Creatinine comes down. Further workup will be indicated for the etiology of the obstruction and p ulmonary nodules. If it does not come down, then after discussing the case with the urologist kt ly be discharged him to [place] for a nephrostomy. The patient states he feels about the same. His breathing is better. He has continued to diurese. His vital signs are stable. He still has variabl e amounts dysuria when he voids, although his H and H seem somewhat stable again dependin g on the outcome of the procedure depend on his further workup and discharge planning. HR/MODL Voice ID: [id number] Report ID: [id number]
[2020-07-05] MEDS: ATORVASTATIN 20 MG TAB PO SCH (20:47)
--- NOTE | 2020-07-05 21:27 | PN ---
Date of Progress Note: 07/05/2020 Subjective: The patient feels better today. He is now off oxygen and breathing comfortably even wit h some minimal activity, now lost over 20 pounds. Continued diuresis according to the lie detector operator. On the urological point of view, he continued to put out urine occasionally, has discomfort in the a nat, and he has a stent in and a drop in creatinine which has dropped almost a point from the time that the procedure was done though talking to the urologist, he felt that he continues to dr escalona, he could follow him as an outpatient next week, and if he does not or goes up, then he would cons ider transferring him as an inpatient. The patient's care was going to be transferred to Dr. Guzman who is gone for the next couple days. The patient was instructed to call my office if he goes home t o set up appointment with me for the beginning of the week, we will repeat the blood count, and make arrangements accordingly. The other issue is the pulmonary nodules. This too will have to be addres sed perhaps with a prostatic biopsy if the rest of the clinical situation settles down probably warra nted. The IR discussion was held with the radiologist who felt it was a difficult procedure at and did not feel comfortable doing that here and felt that maybe elsewhere they would have some difficulty obtaining enough tissues to be of value. This will be considered as we go down the pathw ay for the diagnosis. HR/MODL Voice ID: [id number] Report ID: [id number]
[2020-07-06 03:21] LABS: HBsAG Nonreactive (Nonreactive)
[2020-07-06] MEDS: ALBUTEROL 2.5 MG/3 ML NEB SOL NEB SCH ×3 (07:55→20:10)
[2020-07-06] MEDS: IPRATROPIUM BROM 0.5MG/2.5ML NEB SCH ×3 (07:55→20:10)
[2020-07-06] MEDS: INSULIN -REGULAR HUMAN 50 UNIT/0.5 ML ML SQ SCH ×4 (08:10→20:06)
[2020-07-06] MEDS: TAMSULOSIN 0.4 MG SR CAP PO SCH (08:10)
[2020-07-06] MEDS: FUROSEMIDE 40 MG TABLET PO SCH (08:10)
[2020-07-06] MEDS: predniSONE 20 MG TAB PO SCH ×2 (08:11→20:04)
[2020-07-06] MEDS: METOPROLOL TAR 25 MG TAB PO SCH ×2 (08:11→20:04)
[2020-07-06] MEDS: ASPIRIN 81 MG CHEWABLE TABLET PO SCH (08:11)
[2020-07-06] MEDS: NIACIN 500 MG SR TAB PO SCH ×2 (08:11→20:04)
[2020-07-06] MEDS: ENOXAPARIN 30 MG/0.3 ML SQ SCH (09:00)
[2020-07-06 10:45] LABS: Absolute Lymphocytes (CBC) 0.6 K/uL (0.7-4.9); Basophils % 0.1 % (0-1.3); Hematocrit 28.7 % (39.6-49.0); Lymphocytes % 4.6 % (15.3-44.8); MPV 8.5 fL (7.6-11.3); RBC Red Blood Cell Count 3.25 M/uL (4.33-5.43)
[2020-07-06 12:26] LABS: Blood Morphology Comment NOT SEEN (NOT SEEN); Platelet Estimate ADEQ
--- NOTE | 2020-07-06 13:04 | P.PN ---
Subjective Date of Service: 07/06/20 Primary Care Provider: Dr. Guerrero(I am covering for him) Chief Complaint: SOB Subjective: Improving (Patient without significant shortness of breath. Sotelo catheter in place. Less hematuria noted.) Physical Examination - Vital Signs Temperature: 97.4 F Blood Pressure: 134/65 Pulse: 62 Respirations: 18 Pulse Ox (%): 95 - Physical Exam General: Alert, In no apparent distress, Oriented x3, Cooperative HEENT: Atraumatic Neck: Supple Respiratory: Clear to auscultation bilaterally, Normal air movement Cardiovascular: Normal pulses, Regular rate/rhythm Gastrointestinal: No masses, No rebound, No guarding Neurological: Normal speech, Normal strength at 5/5 x4 extr, Normal tone, Normal affect Urinary: Sotelo catheter (Less hematuria noted) - Studies Medications List Reviewed: Yes Assessment & Plan Discharge Plan: Home Plan to discharge in: 24 Hours Physician Review Additional Text: Impression: Acute on chronic renal failure stage II secondary to obstructive uropathy status post right ureteral stent placement Hematuria secondary to malposition of Sotelo catheter complicated with enlarged prostate suspect prostate cancer with history of BPH status post right ureteral stent placement with Sotelo catheter placement Anasarca related to acute on chronic systolic/diastolic CHF and acute on chronic renal failure Diabetes mellitus type 2 Hypertension BPH COPD Bilateral pulmonary nodules suspect metastatic disease Hyperlipidemia Anemia of chronic disease Tobacco abuse Plan: Acute on chronic renal failure stage II secondary to obstructive uropathy status post right ureteral stent placement: Renal function improved now with right ureteral stent and Sotelo catheter. Will continue to monitor closely. If renal function continues to decline patient will likely require transfer to [facility]-level care center for urological intervention of nephrostomy tube or placement of left ureteral stent. Will continue monitor closely. Case discussed with PCP who is out of town and that I am covering. Will also discuss with nephrology. Will continue monitor CBC and BMP. Anticipate improvement over the next 24-48 hr with possible discharge if renal function continues to improve. Hematuria secondary to malposition of Sotelo catheter complicated with enlarged prostate suspect prostate cancer with history of BPH status post right ureteral stent placement with Sotelo catheter placement: Sotelo catheter now in place. Hematuria improving. Continue monitor closely. Continue as above recommendations. Anasarca related to acute on chronic systolic/diastolic CHF and acute on chronic renal failure: Continue with diuresis. Patient on Lasix 40 mg 1 pill 3 times a day. Patient off oxygen. Diabetes mellitus type 2: Will provide sliding scale. Accu-Cheks to be monitored. Hypertension: Continue metoprolol. Will monitor and adjust appropriately. BPH: Continue with Flomax. Enlarged prostate noted as above. Patient had elevated PSA. Enlarged prostate may be related to underlying prostate cancer. This will need to be further evaluated as an outpatient. COPD: Patient seen by pulmonology. Continue with COPD treatment. Patient currently on prednisone 20 mg 1 pill twice daily Bilateral pulmonary nodules suspect metastatic disease: Patient seen by pulmonology to addressed multiple pulmonary nodules. These likely cannot be biopsied. Will discuss further with pulmonology. Metastatic disease may be related to underlying prostate cancer. Hyperlipidemia: Continue with medication including Lipitor and niacin. Anemia of chronic disease: Will continue monitor closely. Overall stable. Tobacco abuse: Tobacco cessation addressed in detail. Time Spent Managing Pts Care (In Minutes): 55
--- NOTE | 2020-07-06 13:43 | P.PN ---
Subjective Date of Service: 07/18/20 Primary Care Provider: Dr. Guerrero(I am covering for him) Chief Complaint: no shortness of breath still having good urine output Subjective: Tolerating diet, Ambulating, Improving, Other (Subjective: The patient was admitted with acute kidney injury, anasarca secondary to obstructive uropathy, over volume. The patient was started on diuresis, had good urine output. no arrigation) Review of Systems Unremarkable Cardiovascular: Edema Physical Examination - Vital Signs Temperature: 97.4 F Blood Pressure: 134/65 Pulse: 62 Respirations: 18 Pulse Ox (%): 95 - Physical Exam General: Alert, Oriented x3 HEENT: Atraumatic Neck: 2+ carotid pulse no bruit, JVD not distended Respiratory: Crackles/rales Cardiovascular: Edema (+3), Systolic murmur Gastrointestinal: Normal bowel sounds Musculoskeletal: No clubbing Neurological: Normal gait, Normal speech External genitalia: Edema - Studies Laboratory Data: WBC 9.5, H and H 9/26.3, platelet 287. Sodium 136, potassium 4, bicarb 26, BUN 73, creatinine 3.9, GFR down to 15 marginal improvement. Calcium 8.3. Serum protein electrophoresis is still pending. PTH 135, P/C ratio 0.5. Medications List Reviewed: Yes Assessment And Plan Physician Review Additional Text: Impression: Acute on chronic renal failure stage II secondary to obstructive uropathy status post right ureteral stent placement Hematuria secondary to malposition of Sotelo catheter complicated with enlarged prostate suspect prostate cancer with history of BPH status post right ureteral stent placement with Sotelo catheter placement Anasarca related to acute on chronic systolic/diastolic CHF and acute on chronic renal failure Diabetes mellitus type 2 Hypertension BPH COPD Bilateral pulmonary nodules suspect metastatic disease Hyperlipidemia Anemia of chronic disease Tobacco abuse Plan: 1. Acute kidney injury secondary to obstructive uropathy, on the recovery phase. Currently . Post obstructive diureis : d/c lasix will monitor the patient 2. Obstructive uropathy. I agree with Flomax, status post stent placement. We will follow up with Urology. 3. Anasarca secondary to renal failure. TSH within normal limit. Minimal proteinuria. Currently . Post obstructive diureis : d/c lasix , f/u lab 4. Deconditioning. Continue PT, OT. 5. Congestive heart failure, on room air. Significant peripheral edema as above. Time Spent Managing PTS Care (In Minutes): 35
[2020-07-06] MEDS: ATORVASTATIN 20 MG TAB PO SCH (20:04)
[2020-07-06 22:17] LABS: Vitamin D 1,25-Dihydroxy Total 14 pg/mL (18-72); Vitamin D,1,25-OH2, D2 <8 pg/mL
[2020-07-06 23:33] LABS: Albumin, (SPE) 3.4 g/dL (3.8-4.8); Alpha-1-Globulins 0.4 g/dL (0.2-0.3); Gamma Globulins 0.6 g/dL (0.8-1.7); INTERPRETATION REPORT
[2020-07-07 05:17] LABS: Albumin 3.3 g/dL (3.4-5.0); Magnesium 1.7 mg/dL (1.8-2.4); Phosphorus 3.9 mg/dL (2.5-4.9); Potassium 3.5 mmol/L (3.5-5.1)
[2020-07-07] MEDS ORDERED: POTASSIUM CL SA 10 MEQ TAB PO ONE (07:46)
[2020-07-07] MEDS ORDERED: Magnesium Sulfate 2gm IVPB 2 G/50 ML BAG IV ONE (07:47)
[2020-07-07] MEDS: DULERA 100/5 (MOMETASONE/FORMOTEROL) INHALER IH SCH ×3 (08:00→21:47)
[2020-07-07] MEDS: ENOXAPARIN 30 MG/0.3 ML SQ SCH (08:05)
[2020-07-07] MEDS: ASPIRIN 81 MG CHEWABLE TABLET PO SCH (08:05)
[2020-07-07] MEDS: IPRATROPIUM BROM 0.5MG/2.5ML NEB SCH ×3 (08:05→20:50)
[2020-07-07] MEDS: TAMSULOSIN 0.4 MG SR CAP PO SCH (08:05)
[2020-07-07] MEDS: ALBUTEROL 2.5 MG/3 ML NEB SOL NEB SCH ×3 (08:05→20:50)
[2020-07-07] MEDS: predniSONE 20 MG TAB PO SCH (08:05)
[2020-07-07] MEDS: METOPROLOL TAR 25 MG TAB PO SCH ×2 (08:06→21:43)
[2020-07-07] MEDS: INSULIN -REGULAR HUMAN 50 UNIT/0.5 ML ML SQ SCH ×4 (08:07→21:42)
[2020-07-07] MEDS: NIACIN 500 MG SR TAB PO SCH ×2 (08:08→21:43)
--- NOTE | 2020-07-07 11:05 | P.PN ---
Subjective Date of Service: 07/07/20 Primary Care Provider: Dr. Guerrero(I am covering for him) Chief Complaint: no shortness of breath still having good urine output 74-year-old gentleman with a history of CHF, diabetes, coronary artery disease and hypertension pt was admitted for SOB found to have TANIKA due to obstructive uropathy Today UO ~10 liters yesterday Corrected BS ~136 will cont to monitor Lasix on hold , might need to initiate IVF physical exam general: awake and alert , NAD Neck; Supple, No elevated JVD hear: RRR, normal S1,2 no murmur or rub Chest: decreased air entry B/L Abdomen: hernia, Nt, Extremities +1 edema A/P TANIKA on CKD Pt with progressively worsening Cr since april US with B/L hydronephrosis due to obstructive uropathy Obstructive uropathy S/P Stent placement hyponatremia corrected sodiu level WNl DM SSI HTN BP controlled Physical Examination - Vital Signs Temperature: 97.6 F Blood Pressure: 119/68 Pulse: 87 Respirations: 20 Pulse Ox (%): 97 - Studies Medications List Reviewed: Yes
--- NOTE | 2020-07-07 12:01 | P.PN ---
Subjective Date of Service: 07/07/20 Primary Care Provider: Dr. Guerrero(I am covering for him) Chief Complaint: no shortness of breath still having good urine output Subjective: Improving, Doing well, Other (Urinary output still elevated) Physical Examination - Vital Signs Temperature: 97.6 F Blood Pressure: 119/68 Pulse: 87 Respirations: 20 Pulse Ox (%): 97 - Physical Exam General: Alert, In no apparent distress, Oriented x3, Cooperative HEENT: Atraumatic Neck: Supple Respiratory: Clear to auscultation bilaterally, Normal air movement Cardiovascular: Normal pulses, Regular rate/rhythm Gastrointestinal: Normal bowel sounds, No tenderness, No masses, No rebound, No guarding Integumentary: Tenderness/swelling (Edema to the lower extremities improved) Neurological: Normal speech, Normal strength at 5/5 x4 extr, Normal tone, Normal affect Urinary: Other (Sotelo catheter in place. Less hematuria noted) - Studies Medications List Reviewed: Yes Assessment & Plan Discharge Plan: Home Plan to discharge in: 48 Hours Physician Review Additional Text: Impression: Acute on chronic renal failure stage II secondary to obstructive uropathy status post right ureteral stent placement now with postobstructive diuresis Hematuria secondary to malposition of Sotelo catheter complicated with enlarged prostate suspect prostate cancer with history of BPH status post right ureteral stent placement with Sotelo catheter placement Anasarca related to acute on chronic systolic/diastolic CHF and acute on chronic renal failure Diabetes mellitus type 2 Hypertension BPH COPD Bilateral pulmonary nodules suspect metastatic disease Hyperlipidemia Anemia of chronic disease Tobacco abuse Plan: Acute on chronic renal failure stage II secondary to obstructive uropathy status post right ureteral stent placement now with postobstructive diuresis: Renal function continues to improve with right ureteral stent and Sotelo catheter. Hematuria also improved. Patient still with postobstructive diuresis. Will continue to monitor this closely. Case discussed with patient and Nephrology. If diuresis significantly improves then likely discharge after that time and when and Nephrology agrees. Continue to monitor output closely. Patient will likely require Sotelo catheter at discharge and follow up with urology. Other issues address in detail with the patient. PSA elevated with enlarge prostate. Patient also with pulmonary nodules. If patient with stage IV prostate cancer, patient would not want any type of chemotherapy or radiation. Advanced directives address in detail. Patient wishes to be do not resuscitate. Anticipate improvement over the next 48 hr. I will turn to service over to the hospitalist team tomorrow. I will go over plan of care with him. If the patient remains here on Friday then his PCP-Dr. Guerrero will take over. Hematuria secondary to malposition of Sotelo catheter complicated with enlarged prostate suspect prostate cancer with history of BPH status post right ureteral stent placement with Sotelo catheter placement: Sotelo catheter now in place. Hematuria improving. Continue monitor closely. Continue as above recommendations. Anasarca related to acute on chronic systolic/diastolic CHF and acute on chronic renal failure: This has significantly improved. Due to post obstructive diuresis Lasix has been discontinued. We need to continue to monitor diuresis closely. Diabetes mellitus type 2: Will provide sliding scale. Accu-Cheks to be monitored. Hypertension: Continue metoprolol. Will monitor and adjust appropriately. BPH with noted and large prostate and elevated PSA possible stage IV prostate cancer: Continue with Flomax. Enlarged prostate noted as above. Patient had elevated PSA. Enlarged prostate may be related to underlying prostate cancer. This will need to be further evaluated as an outpatient. Patient would not want any radiation or chemotherapy if this was offered. This can be further addressed with urology. COPD: Patient seen by pulmonology. Continue with COPD treatment. Will decrease prednisone. Will provide inhaler therapy. Bilateral pulmonary nodules suspect metastatic disease: Patient seen by pulmonology to addressed multiple pulmonary nodules. These likely cannot be biopsied. Will discuss further with pulmonology. Metastatic disease may be related to underlying prostate cancer. Hyperlipidemia: Continue with medication including Lipitor and niacin. Anemia of chronic disease: Will continue monitor closely. Overall stable. Tobacco abuse: Tobacco cessation addressed in detail. Time Spent Managing Pts Care (In Minutes): 55
[2020-07-07] MEDS ORDERED: LACTULOSE 20 GM/30 ML UCUP PO PRN (15:38)
[2020-07-07] MEDS: DOCUSATE NA 100 MG CAP PO SCH (16:09)
[2020-07-07] MEDS: ATORVASTATIN 20 MG TAB PO SCH (21:43)
[2020-07-07] MEDS: predniSONE 10 MG TAB PO SCH (21:43)
[2020-07-07] MEDS: INSULIN GLARGINE 100 UNITS/ML SQ SCH (21:43)
[2020-07-08 06:32] LABS: Potassium 3.5 mmol/L (3.5-5.1)
[2020-07-08 06:33] LABS: Albumin 3.5 g/dL (3.4-5.0); Phosphorus 3.2 mg/dL (2.5-4.9)
[2020-07-08] MEDS: IPRATROPIUM BROM 0.5MG/2.5ML NEB SCH ×3 (07:35→20:15)
[2020-07-08] MEDS: ALBUTEROL 2.5 MG/3 ML NEB SOL NEB SCH ×3 (07:35→20:15)
[2020-07-08] MEDS: DULERA 100/5 (MOMETASONE/FORMOTEROL) INHALER IH SCH ×2 (08:00→21:10)
[2020-07-08] MEDS: ENOXAPARIN 30 MG/0.3 ML SQ SCH (08:51)
[2020-07-08] MEDS: INSULIN -REGULAR HUMAN 50 UNIT/0.5 ML ML SQ SCH ×4 (08:51→21:10)
[2020-07-08] MEDS: NIACIN 500 MG SR TAB PO SCH ×2 (08:51→21:11)
[2020-07-08] MEDS: METOPROLOL TAR 25 MG TAB PO SCH ×2 (08:52→21:11)
[2020-07-08] MEDS: DOCUSATE NA 100 MG CAP PO SCH ×2 (08:53→08:54)
[2020-07-08] MEDS: ASPIRIN 81 MG CHEWABLE TABLET PO SCH (08:53)
[2020-07-08] MEDS: TAMSULOSIN 0.4 MG SR CAP PO SCH (08:53)
[2020-07-08] MEDS: predniSONE 10 MG TAB PO SCH ×2 (08:53→21:11)
--- NOTE | 2020-07-08 11:47 | P.DS ---
Admission Date: 06/29/20 Discharge Date: 07/08/20 Primary Care Provider: Dr. Guerrero(I am covering for him) Disposition: ROUTINE DISCHARGE Discharge Condition: FAIR Reason for Admission: no shortness of breath still having good urine output - Problems (1) COPD (chronic obstructive pulmonary disease) Current Visit: Yes Status: Acute Qualifiers: COPD type: unspecified COPD Qualified Code(s): J44.9 - Chronic obstructive pulmonary disease, unspecified (2) Renal failure (ARF), acute on chronic Current Visit: Yes Status: Acute Qualifiers: Acute renal failure type: unspecified Chronic kidney disease stage: stage 4 (severe) Qualified Code(s): N17.9 - Acute kidney failure, unspecified; N18.4 - Chronic kidney disease, stage 4 (severe) Brief History of Present Illness: Patient is 74 years of age [place] quit smoking smoked over a pack a day admitted with acute shortness of breath he is doing better he uses Xopenex at home no prior history of COPD is not on any oxygen treatment found to have multiple pulmonary nodules suggestive of metastatic lung disease Hospital Course: Patient is 74 years of age admitted with shortness of breath and worsening renal function retroperitoneal fibrosis left ureteral obstruction patient had a stent placed by . He has bilateral pulmonary nodules most likely metastatic lung disease patient has refused any workup including chemotherapy radiation therapy for biopsies the time of discharge he was alert oriented responsive cooperative chest clear edema added reduce significantly in addition he also has congestive heart failure the enlargement of the prostate I have also prescribed him some Advair lisinopril discontinued Vital Signs/Physical Exam: Temp Pulse Resp BP Pulse Ox 97.1 F 106 H 20 139/61 98 07/08/20 08:00 07/08/20 08:52 07/08/20 08:00 07/08/20 08:52 07/08/20 08:00 Laboratory Data at Discharge: WBC 13.2 K/uL (4.3-10.9) H D 07/06/20 10:35 Hgb 9.8 g/dL (13.6-17.9) L 07/06/20 10:35 Hct 28.7 % (39.6-49.0) L 07/06/20 10:35 Plt Count 364 K/uL (152-406) D 07/06/20 10:35 PT 13.1 SECONDS (9.5-12.5) H 07/04/20 05:49 INR 1.11 07/04/20 05:49 APTT 29.4 SECONDS (24.3-36.9) 07/04/20 05:49 Sodium 135 mmol/L (136-145) L 07/08/20 05:37 Potassium 3.5 mmol/L (3.5-5.1) 07/08/20 05:37 BUN 46 mg/dL (7-18) H 07/08/20 05:37 Creatinine 2.23 mg/dL (0.55-1.3) H 07/08/20 05:37 Glucose 370 mg/dL (74-106) H 07/08/20 05:37 Uric Acid 7.9 mg/dL (3.5-7.2) H 06/29/20 13:52 Phosphorus 3.2 mg/dL (2.5-4.9) 07/08/20 05:37 Magnesium 2.0 mg/dL (1.8-2.4) 07/08/20 05:37 Total Bilirubin 0.4 mg/dL (0.2-1.0) 06/29/20 12:40 AST 17 U/L (15-37) 06/29/20 12:40 ALT 31 U/L (12-78) 06/29/20 12:40 Alkaline Phosphatase 109 U/L (45-117) 06/29/20 12:40 Troponin I 0.03 ng/mL (0.0-0.045) 06/29/20 20:51 Home Medications: Simvastatin 40 mg PO BEDTIME 04/11/19 Tamsulosin [Flomax*] 0.4 mg PO DAILY 04/11/19 Aspirin [Jennifer Chewable Aspirin] 81 mg PO DAILY 05/10/20 Niacin 500 mg PO BID 05/10/20 Rivaroxaban [Xarelto] 20 mg PO DAILY 05/10/20 Amlodipine [Norvasc*] 10 mg PO DAILY #30 tab 05/11/20 Sitagliptin Phosphate [Januvia] 25 mg PO DAILY #30 tablet 05/11/20 Albuterol Sulfate [Proair Respiclick] 90 mcg IH PRN 06/29/20 Furosemide [Lasix*] 1 tab PO DAILY 06/29/20 Levalbuterol Tartrate [Levalbuterol Tartrate Hfa] 2 puff IH Q4H 06/29/20 Metformin HCl [Glucophage] 1 tab PO BID 06/29/20 Metoprolol Tartrate [Lopressor*] 1.5 tab PO BID 06/29/20 Fluticasone/Salmeterol [Advair 250-50 Diskus] 1 each IH BID 30 Days #60 blst.w.dev 07/08/20 New Medications: Fluticasone/Salmeterol [Advair 250-50 Diskus] 1 each IH BID 30 Days #60 blst.w.dev Patient Discharge Instructions: Plan to follow-up with urology in 1 week and primary care physician/please call nephrology regarding follow-up Diet: Regular
--- NOTE | 2020-07-08 15:28 | P.PN ---
Subjective Date of Service: 07/09/20 Primary Care Provider: Dr. Guerrero(I am covering for him) Chief Complaint: no shortness of breath still having good urine output 74-year-old gentleman with a history of CHF, diabetes, coronary artery disease and hypertension pt was admitted for SOB found to have TANIKA due to obstructive uropathy Today UO diown to ~6liters last 24hrs BS control pt to be discharged once his Uo ~3liters physical exam general: awake and alert , NAD Neck; Supple, No elevated JVD hear: RRR, normal S1,2 no murmur or rub Chest: decreased air entry B/L Abdomen: hernia, Nt, Extremities +1 edema A/P TANIKA on CKD Pt with progressively worsening Cr since april US with B/L hydronephrosis due to obstructive uropathy post obstructive polyuria ] will nmointor UO no need for IVF as pt have edema Obstructive uropathy S/P Stent placement hyponatremia corrected sodiu level WNl DM SSI HTN BP controlled Physical Examination - Vital Signs Temperature: 98 F Blood Pressure: 117/64 Pulse: 108 Respirations: 20 Pulse Ox (%): 99 - Studies Medications List Reviewed: Yes
[2020-07-08] MEDS: INSULIN GLARGINE 100 UNITS/ML SQ SCH (21:09)
[2020-07-08] MEDS: ATORVASTATIN 20 MG TAB PO SCH (21:10)
[2020-07-09 05:28] LABS: Basophils % 0.1 % (0-1.3); Hematocrit 29.5 % (39.6-49.0); Lymphocytes % 5.6 % (15.3-44.8); MPV 8.6 fL (7.6-11.3); RBC Red Blood Cell Count 3.32 M/uL (4.33-5.43)
[2020-07-09 05:50] LABS: Albumin 3.3 g/dL (3.4-5.0); Magnesium 1.9 mg/dL (1.8-2.4); Phosphorus 3.1 mg/dL (2.5-4.9); Potassium 3.3 mmol/L (3.5-5.1)
[2020-07-09] MEDS: ALBUTEROL 2.5 MG/3 ML NEB SOL NEB SCH ×3 (08:23→20:50)
[2020-07-09] MEDS: IPRATROPIUM BROM 0.5MG/2.5ML NEB SCH (08:23)
[2020-07-09] MEDS: ENOXAPARIN 30 MG/0.3 ML SQ SCH (08:40)
[2020-07-09] MEDS: INSULIN -REGULAR HUMAN 50 UNIT/0.5 ML ML SQ SCH ×4 (08:40→21:55)
[2020-07-09] MEDS: NIACIN 500 MG SR TAB PO SCH ×2 (08:41→21:53)
[2020-07-09] MEDS: TAMSULOSIN 0.4 MG SR CAP PO SCH (08:41)
[2020-07-09] MEDS: DULERA 100/5 (MOMETASONE/FORMOTEROL) INHALER IH SCH ×2 (08:41→22:00)
[2020-07-09] MEDS: DOCUSATE NA 100 MG CAP PO SCH (08:41)
[2020-07-09] MEDS: METOPROLOL TAR 25 MG TAB PO SCH ×2 (08:42→21:54)
[2020-07-09] MEDS: predniSONE 10 MG TAB PO SCH (08:42)
[2020-07-09] MEDS: ASPIRIN 81 MG CHEWABLE TABLET PO SCH (08:44)
[2020-07-09] MEDS ORDERED: POTASSIUM 25 MEQ EFFERV TAB PO ONE (09:28)
--- NOTE | 2020-07-09 09:32 | P.PN ---
Subjective Date of Service: 07/09/20 Primary Care Provider: Dr. Guerrero(I am covering for him) Chief Complaint: Post of obstructive diuresis Subjective: Improving (Patient is improving he still has significant output is now mildly hypokalemic no shortness of breath) Review of Systems Respiratory: Shortness of Breath Cardiovascular: Edema Physical Examination - Vital Signs Temperature: 98 F Blood Pressure: 101/61 Pulse: 90 Respirations: 20 Pulse Ox (%): 99 - Physical Exam General: Alert, Oriented x3 Respiratory: Clear to auscultation bilaterally Cardiovascular: Regular rate/rhythm, Edema - Studies Medications List Reviewed: Yes Assessment & Plan - Problems (Diagnosis) (1) COPD (chronic obstructive pulmonary disease) Current Visit: Yes Status: Acute Plan: Patient's condition is stable continue with bronchodilators Dc steroids and nebulizers Qualifiers: COPD type: unspecified COPD Qualified Code(s): J44.9 - Chronic obstructive pulmonary disease, unspecified (2) Postobstructive diuresis Current Visit: Yes Status: Acute Plan: Patient still has significant postobstructive diuresis his renal function is improving now hypokalemic potassium is been replace continue to monitor
--- NOTE | 2020-07-09 13:53 | P.PN ---
Subjective Date of Service: 07/09/20 Primary Care Provider: Dr. Guerrero(I am covering for him) Chief Complaint: Post of obstructive diuresis 74-year-old gentleman with a history of CHF, diabetes, coronary artery disease and hypertension pt was admitted for SOB found to have TANIKA due to obstructive uropathy , S?P Stent placement Today pt with post obsutice polyuria , now UO down to 4liters WBC trending up , likely steroids induced now off steroids pt to be discharged once his Uo ~3liters, and WBC improves physical exam general: awake and alert , NAD Neck; Supple, No elevated JVD hear: RRR, normal S1,2 no murmur or rub Chest: decreased air entry B/L Abdomen: hernia, Nt, Extremities +1 edema A/P TANIKA on CKD Pt with progressively worsening Cr since april US with B/L hydronephrosis due to obstructive uropathy post obstructive polyuria ] will nmointor UO no need for IVF as pt have edema Obstructive uropathy S/P Stent placement hyponatremia corrected sodiu level WNl DM SSI Leuckocytosis WBC trending up , likely steroids induced now off steroids HTN BP controlled Physical Examination - Vital Signs Temperature: 98 F Blood Pressure: 101/61 Pulse: 90 Respirations: 20 Pulse Ox (%): 99 - Studies Medications List Reviewed: Yes
[2020-07-09] MEDS: ATORVASTATIN 20 MG TAB PO SCH (21:55)
[2020-07-09] MEDS: POTASSIUM 25 MEQ EFFERV TAB PO SCH (21:55)
[2020-07-09] MEDS: INSULIN GLARGINE 100 UNITS/ML SQ SCH (21:55)
[2020-07-10 04:52] LABS: Albumin 2.8 g/dL (3.4-5.0); Magnesium 1.9 mg/dL (1.8-2.4); Phosphorus 2.6 mg/dL (2.5-4.9); Potassium 3.4 mmol/L (3.5-5.1)
[2020-07-10] MEDS: ALBUTEROL 2.5 MG/3 ML NEB SOL NEB SCH ×3 (07:43→20:05)
[2020-07-10] MEDS: POTASSIUM 25 MEQ EFFERV TAB PO SCH ×2 (08:23→22:03)
[2020-07-10] MEDS: ASPIRIN 81 MG CHEWABLE TABLET PO SCH (08:23)
[2020-07-10] MEDS: METOPROLOL TAR 25 MG TAB PO SCH ×2 (08:23→22:03)
[2020-07-10] MEDS: TAMSULOSIN 0.4 MG SR CAP PO SCH (08:24)
[2020-07-10] MEDS: DOCUSATE NA 100 MG CAP PO SCH (08:24)
[2020-07-10] MEDS: INSULIN -REGULAR HUMAN 50 UNIT/0.5 ML ML SQ SCH ×4 (08:25→22:01)
[2020-07-10] MEDS: ENOXAPARIN 30 MG/0.3 ML SQ SCH (08:25)
[2020-07-10] MEDS: NIACIN 500 MG SR TAB PO SCH ×2 (08:25→22:03)
[2020-07-10] MEDS: DULERA 100/5 (MOMETASONE/FORMOTEROL) INHALER IH SCH ×2 (08:26→22:00)
[2020-07-10] MEDS: LIDOCAINE JELLY 2%- 5 ML TUBE TOP PRN (17:28)
[2020-07-10] MEDS: INSULIN GLARGINE 100 UNITS/ML SQ SCH (22:00)
[2020-07-10] MEDS: ATORVASTATIN 20 MG TAB PO SCH (22:03)
[2020-07-11 04:23] LABS: Albumin 2.7 g/dL (3.4-5.0); Magnesium 1.7 mg/dL (1.8-2.4); Phosphorus 2.3 mg/dL (2.5-4.9); Potassium 3.7 mmol/L (3.5-5.1)
[2020-07-11] MEDS: ALBUTEROL 2.5 MG/3 ML NEB SOL NEB SCH ×3 (08:30→19:55)
[2020-07-11] MEDS: DOCUSATE NA 100 MG CAP PO SCH (09:00)
[2020-07-11] MEDS: INSULIN -REGULAR HUMAN 50 UNIT/0.5 ML ML SQ SCH ×4 (09:23→21:34)
[2020-07-11] MEDS: NIACIN 500 MG SR TAB PO SCH ×2 (09:24→21:35)
[2020-07-11] MEDS: ENOXAPARIN 30 MG/0.3 ML SQ SCH (09:24)
[2020-07-11] MEDS: TAMSULOSIN 0.4 MG SR CAP PO SCH (09:24)
[2020-07-11] MEDS: ASPIRIN 81 MG CHEWABLE TABLET PO SCH (09:24)
[2020-07-11] MEDS: DULERA 100/5 (MOMETASONE/FORMOTEROL) INHALER IH SCH ×2 (09:25→21:38)
[2020-07-11] MEDS: POTASSIUM 25 MEQ EFFERV TAB PO SCH (09:28)
[2020-07-11] MEDS ORDERED: DICYCLOMINE HCL 10 MG CAP PO PRN (10:26)
[2020-07-11] MEDS ORDERED: POTASSIUM CL SA 10 MEQ TAB PO ONE (10:48)
[2020-07-11] MEDS ORDERED: Magnesium Sulfate 2gm IVPB 2 G/50 ML BAG IV ONE (10:49)
[2020-07-11] MEDS ORDERED: DRISDOL (VITAMIN D=ERGOCALCIFEROL) 50000 UNIT CAP PO SCH (11:30)
[2020-07-11] MEDS ORDERED: MAGNESIUM SULFATE 1 gm IVPB 1 GM/100 ML BAG IV ONE (12:40)
[2020-07-11] MEDS ORDERED: POTASS/SODIUM PHOSPHATE 1 PKT POWD.PACK PO ONE (13:00)
--- NOTE | 2020-07-11 13:08 | RAD REPORT ---
EXAM DESCRIPTION: CT - Thorax Wo Con - 07/11/2020 12:45 pm CLINICAL HISTORY: chf, hypertension COMPARISON: Chest Single View dated 07/01/2020; Abdomen Pelvis Wo Contrast dated 07/01/2020 TECHNIQUE: Axial 5 mm thick images of the chest were obtained without IV contrast. All CT scans are performed using dose optimization technique as appropriate and may include automated exposure control or mA/KV adjustment according to patient size. FINDINGS: The patient has numerous variably sized pulmonary nodules. Largest is in the inferior aspe ct of the right upper lobe (image 28/60). This nodule measures 1.6 cm AP x 2.5 cm TR. Most of the pul monary nodules are under 1 centimeter in size. A 16 millimeter air-filled cystic cavity is present in the mid right upper lobe. A smaller 10 millimeter irregular marginated cystic cavity is present in t he apex superior segment right lower lobe. Small right pleural effusion is present. There is a trace amount of left pleural fluid. No pneumothorax. No abnormal mediastinal or hilar masses or lymphadenopathy seen. No gross aortic or pulmonary artery finding suspected. No cardiomegaly. Pericardial effusion is present up to 8 mm in thickness. No chest wall mass or abnormal axillary lymphadenopathy. Limited upper abdomen imaging shows an enlarged left adrenal gland fullness to the right adrenal glan d. Liver is not adequately visualized. IMPRESSION: Multiple variably sized pulmonary nodules are present throughout both lung vázquez. Most are under 1 centimeter. Largest is 2.5 cm. Metastatic pulmonary nodules would be the most likely yoselin ology. No mediastinal or hilar mass. Enlargement of a partially imaged left adrenal gland noted. Mild pericardial effusion up to 8 mm in thickness.
[2020-07-11] MEDS: METOPROLOL TAR 25 MG TAB PO SCH ×2 (13:16→21:35)
--- NOTE | 2020-07-11 15:24 | PN ---
Date of Progress Note: 07/11/2020 Subjective: The patient was admitted with acute kidney injury secondary to obstructive uropathy/cardiorenal. After unilateral stent, the patient started having good urine output. Swelling has been subsided, but patient has significant hematuria. Physical Examination: Vital Signs: Blood pressure 96/54, pulse of 84 afebrile. The patient had urine output of 3700, negative of 1900. Chest: Decreased entry at bilateral base. HEART: S1, S2. Systolic murmur. Abdomen: Soft, nontender. Sotelo catheter. Extremities: +2 edema. Neurologic: Alert, no focal. Laboratory Data: WBC 17.7, H and H 9/29.5, platelet 426. Sodium 135, potassium 3.7, bicarb 27, BUN 29, creatinine down to 1.4, calcium 8.3, phosphorus 2.3, magnesium 1.7, albumin 2.7. Corrected calcium is 9.5. Current Medications: The patient on include, 1. Aspirin. 2. Lovenox. 3. Atorvastatin. 4. Zofran. Assessment And Plan: 1. Acute kidney injury multifactorial secondary to obstructive uropathy/cardiorenal, still on the over volume side. The patient had post obstruction polydiuresis. For that reason Lasix was held. I am going to resume Lasix to establish better volume control. 2. We will monitor the patient. 3. Hypokalemia, we will supplement. 4. Hypomagnesemia, we will supplement. 5. Hypertension. Currently blood pressure on the lower side. We will utilize the blood pressure to establish better volume control. 6. Obstructive uropathy. Continue Flomax. Follow up with Urology. 7. Vitamin D deficiency. We will supplement. Time spent coordinating the care, discuss him with all of our team members including othere workday financials consultant and hospitalist and [id number] with the patient and please go out of 35 min JOSE LUIS/JUHI Voice ID: [id number] Report ID: [id number] MTDD
[2020-07-11 16:39] LABS: Urine Appearance CLOUDY; Urine Bilirubin NEGATIVE (NEG); Urine Blood 3+ (NEG); Urine Color OTHER; Urine Glucose 2+ (NEG); Urine Protein 1+ (NEG); Urine Specific Gravity 1.015 (1.005-1.030); Urine Urobilinogen 0.2 mg/dL (0.2-1.0)
[2020-07-11 16:49] LABS: Urine Microscopic Reflex ORDER UMIC
[2020-07-11] MEDS: FUROSEMIDE 40 MG TABLET PO SCH (16:51)
[2020-07-11] MEDS: LIDOCAINE JELLY 2%- 5 ML TUBE TOP PRN (16:53)
[2020-07-11 17:14] LABS: Urine Bacteria 20-50 /HPF (NONE SEEN); Urine RBC >50 /HPF (NONE SEEN)
[2020-07-11 17:15] LABS: Urine Culture Reflex Order REFLEXED
--- NOTE | 2020-07-11 17:51 | PN ---
Date of Progress Note: 07/11/2020 Chief Complaint: Acute kidney injury, obstructive uropathy status post stent placement. Subjective: Patient is a 74-year-old man with history of congestive heart failure, diabetes mellitus , coronary artery disease, hypertension. He was found to have hydronephrosis and had a stent placeme nt. Today, he denies new complaints. Denies hematuria, dysuria, chest pain, palpitation. Physical Examination: Lungs: Diminished breath sounds at bases. Heart: S1, S2. Abdomen: Soft, benign. Extremities: 1+ edema. Impression And Plan: 1.Acute kidney injury on chronic kidney disease. Patient developed severe acute kidney injury and w orsening of creatinine level since April. Ultrasound showed bilateral hydronephrosis due to obstructi ve uropathy, postobstructive polyuria is present, and patient is on hydration. IV fluids on hold due to peripheral edema and fluid overload. Patient has chronic congestive heart failure. Continue to monitor renal function and replace fluids as needed. 2.Hyponatremia. Sodium level improved and monitor electrolytes and monitor TSH level. 3.Leukocytosis. White count is trending down. Continue steroids. Likely it was reactive leukocyto sis due to steroid treatment. Monitor culture and adjust antibiotics. EB/MODL Voice ID: [id number] Report ID: [id number]
[2020-07-11] MEDS: INSULIN GLARGINE 100 UNITS/ML SQ SCH (21:34)
[2020-07-11] MEDS: ATORVASTATIN 20 MG TAB PO SCH (21:35)
[2020-07-12 01:20] VITALS: O2SAT 99
[2020-07-12 04:17] LABS: Absolute Lymphocytes (CBC) 1.1 K/uL (0.7-4.9); Basophils % 0.1 % (0-1.3); Hematocrit 27.9 % (39.6-49.0); Lymphocytes % 8.7 % (15.3-44.8); MPV 7.6 fL (7.6-11.3); RBC Red Blood Cell Count 3.17 M/uL (4.33-5.43)
[2020-07-12 04:23] LABS: Albumin 2.9 g/dL (3.4-5.0); Magnesium 2.1 mg/dL (1.8-2.4); Phosphorus 2.8 mg/dL (2.5-4.9); Potassium 3.9 mmol/L (3.5-5.1)
[2020-07-12] MEDS: INSULIN -REGULAR HUMAN 50 UNIT/0.5 ML ML SQ SCH ×2 (07:30→12:46)
[2020-07-12] MEDS: ALBUTEROL 2.5 MG/3 ML NEB SOL NEB SCH ×2 (07:55→14:16)
[2020-07-12 09:08] VITALS: BP 134/65
[2020-07-12] MEDS: ENOXAPARIN 30 MG/0.3 ML SQ SCH (10:00)
[2020-07-12] MEDS: NIACIN 500 MG SR TAB PO SCH (10:00)
[2020-07-12] MEDS: TAMSULOSIN 0.4 MG SR CAP PO SCH (10:00)
[2020-07-12] MEDS: FUROSEMIDE 40 MG TABLET PO SCH (10:01)
[2020-07-12] MEDS: METOPROLOL TAR 25 MG TAB PO SCH (10:01)
[2020-07-12] MEDS: DULERA 100/5 (MOMETASONE/FORMOTEROL) INHALER IH SCH (10:02)
[2020-07-12] MEDS: ASPIRIN 81 MG CHEWABLE TABLET PO SCH (10:02)
[2020-07-12] MEDS: DOCUSATE NA 100 MG CAP PO SCH (10:02)
--- NOTE | 2020-07-12 10:14 | P.PN ---
Subjective Date of Service: 07/12/20 Primary Care Provider: Dr. Guerrero(I am covering for him) Chief Complaint: Post of obstructive diuresis 74-year-old gentleman with a history of CHF, diabetes, coronary artery disease and hypertension pt was admitted for SOB found to have TANIKA due to obstructive uropathy , S?P Stent placement Today Cr now stable ~1.5 plan tr remove garza today can be discharged from nephgrology point of view to follow with urology , pulmonary as an OP physical exam general: awake and alert , NAD Neck; Supple, No elevated JVD hear: RRR, normal S1,2 no murmur or rub Chest: decreased air entry B/L Abdomen: hernia, Nt, Extremities +1 edema A/P TANIKA on CKD Pt with progressively worsening Cr since april US with B/L hydronephrosis due to obstructive uropathy post obstructive polyuria ] will nmointor UO no need for IVF as pt have edema Obstructive uropathy S/P Stent placement metastatic prostate lesion F/U with urology hyponatremia corrected sodiu level WNl DM SSI Leuckocytosis WBC trending up , likely steroids induced now off steroids HTN BP controlled Physical Examination - Vital Signs Temperature: 97.3 F Blood Pressure: 134/65 Pulse: 85 Respirations: 18 Pulse Ox (%): 96 - Studies Medications List Reviewed: Yes
--- NOTE | 2020-07-12 12:04 | P.PN ---
Subjective Date of Service: 07/12/20 Primary Care Provider: Dr. Guerrero(I am covering for him) Chief Complaint: Multiple pulmonary nodules Subjective: Improving (Patient is doing well no complaints is renal function has improved significantly) Review of Systems General: Weakness Respiratory: Shortness of Breath Physical Examination - Vital Signs Temperature: 97.3 F Blood Pressure: 134/65 Pulse: 85 Respirations: 18 Pulse Ox (%): 96 - Physical Exam General: Alert, In no apparent distress, Oriented x3 Respiratory: Clear to auscultation bilaterally Cardiovascular: Regular rate/rhythm, Edema - Studies Medications List Reviewed: Yes Assessment & Plan - Problems (Diagnosis) (1) COPD (chronic obstructive pulmonary disease) Current Visit: Yes Status: Acute Plan: Doing better continue with bronchodilator she is to continue with Advair at home Qualifiers: COPD type: unspecified COPD Qualified Code(s): J44.9 - Chronic obstructive pulmonary disease, unspecified (2) Multiple pulmonary nodules Current Visit: Yes Status: Acute Plan: Patient has multi pulmonary nodules most likely metastatic disease I have discussed at length again with the patient does not want to have any biopsies at done a in [place] /the radiologist's is now willing to do biopsy here almost certainly this is metastatic disease and he does not want any radiation chemo plan for comfort care only repeat CT scan reviewed
--- NOTE | 2020-07-12 17:55 | PN ---
Date of Progress Note: 07/11/2020 The patient obviously feels considerably better since he has diuresed over 25 pounds. He complains m inimal shortness of breath with activity; however, his activity has been mild. Now with his diagnost ics situation as regard to the lung lesions which CT scan showed 1 prominent node which could in fact be biopsied by IR versus multiple tiny nodes and urological problem. Discussion with the urologist felt that no further procedures would be done other than removing the catheter and placing him on ant ibiotics until definitive diagnosis was made of the lung lesion, perhaps it is lung cancer, metastati c CA or possibly even prostatic CA. Depending on those, further treatment would be indicated urologi ralph otherwise as well. HR/MODL Voice ID: [id number] Report ID: [id number]
--- NOTE | 2020-07-12 18:01 | PN ---
Date of Progress Note: 07/12/2020 The patient today has had his catheter removed and voided without a problem. Residual less than 200, satisfactory and felt well enough to be discharged. Discussion with Pulmonology and myself was made in regard to biopsy of the lung lesion and the patient is going to think about that and come and see me next week. If in fact his urinary tract is functioning normal, should not need any further proce dures. Discussion with the urologist is felt that if he did need anything done, would be a nephrosto my; however, he preferred to know what the lesions of the lung are before this was done. The patient was placed on Cipro. Continue his home medications with the addition of Lasix. Follow up with gary hewitt or Dr. Carvajal in 1 week. HR/MODL Voice ID: [id number] Report ID: [id number]
[2020-07-18 14:34] VITALS: TEMP 97.4
== END 2020-07-12 16:52 | disposition home health service (06) | DRG 291 ==
LOC: ER 12:18 → ERHOLD 13:40 → 2ND 14:32
PROVIDERS: ADMIT Family Medicine; ATTEND Family Medicine
DX: I13.0 Hypertensive heart and chronic kidney disease with heart failure and stage 1 through stage 4 chronic kidney disease, or unspecified chronic kidney disease (principal); J96.00 Acute respiratory failure, unspecified whether with hypoxia or hypercapnia; I50.43 Acute on chronic combined systolic (congestive) and diastolic (congestive) heart failure; C78.00 Secondary malignant neoplasm of unspecified lung; N17.9 Acute kidney failure, unspecified; N13.30 Unspecified hydronephrosis; E87.1 Hypo-osmolality and hyponatremia; C79.82 Secondary malignant neoplasm of genital organs; N18.4 Chronic kidney disease, stage 4 (severe); J44.9 Chronic obstructive pulmonary disease, unspecified; E11.22 Type 2 diabetes mellitus with diabetic chronic kidney disease; E11.51 Type 2 diabetes mellitus with diabetic peripheral angiopathy without gangrene; E83.42 Hypomagnesemia; N40.0 Benign prostatic hyperplasia without lower urinary tract symptoms; N13.9 Obstructive and reflux uropathy, unspecified; E78.5 Hyperlipidemia, unspecified; I25.10 Atherosclerotic heart disease of native coronary artery without angina pectoris; I25.2 Old myocardial infarction; R31.9 Hematuria, unspecified; C61 Malignant neoplasm of prostate; D63.8 Anemia in other chronic diseases classified elsewhere; K59.00 Constipation, unspecified; N13.5 Crossing vessel and stricture of ureter without hydronephrosis; E87.6 Hypokalemia; D72.829 Elevated white blood cell count, unspecified; T83.028A Displacement of other urinary catheter, initial encounter; Y73.3 Surgical instruments, materials and gastroenterology and urology devices (including sutures) associated with adverse incidents; Z79.899 Other long term (current) drug therapy; Z95.5 Presence of coronary angioplasty implant and graft; Z60.2 Problems related to living alone; Z87.891 Personal history of nicotine dependence; Z66 Do not resuscitate; Z79.82 Long term (current) use of aspirin; Z79.84 Long term (current) use of oral hypoglycemic drugs; Z20.828 Contact with and (suspected) exposure to other viral communicable diseases
CPT/HCPCS: 36415; 51600; 71045; 71250; 74176; 74430; 76770; 78708; 80048; 80069; 80076; 81003; 81015; 82565; 82570; 82607; 82652; 82728; 82746; 82784; 82947; 83036; 83520; 83540; 83735; 83880; 83970; 84156; 84165; 84443; 84466; 84484; 84550; 85014; 85018; 85025; 85044; 85610; 85652; 85730; 86021; 86038; 86140; 86160; 86225; 86317; 86430; 86704; 86706; 86850; 86900; 86901; 87077; 87086; 87088; 87186; 87340; 87522; 93005; 93306; 94002; 94003; 94640; 94660; 94760; 96374; 97110; 97116; 97161; 97530; 99285; A9562; G0103; J0696; J1650; J1815; J1940; J2250; J2405; J2704; J3010; J3475; J7030; J7512; J7606; U0003

== ENCOUNTER 2020-07-14 12:47 | Emergency (ER) | payer OTHER ==
[2020-07-14] MEDS ORDERED: ADENOSINE 6 MG/ 2ML VIAL IV ONE (13:01)
[2020-07-14 13:20] LABS: Absolute Lymphocytes (CBC) 0.6 K/uL (0.7-4.9); Basophils % 0.2 % (0-1.3); Hematocrit 28.5 % (39.6-49.0); Lymphocytes % 1.9 % (15.3-44.8); MPV 7.8 fL (7.6-11.3); RBC Red Blood Cell Count 3.25 M/uL (4.33-5.43)
[2020-07-14] MEDS ORDERED: NA CHLORIDE 0.9% 1,000 ML ONE ×2 (13:21→16:33)
[2020-07-14] MEDS ORDERED: FAMOTIDINE 20 MG/2 ML VIAL IV ONE (13:21)
[2020-07-14 13:24] LABS: Protime INR 1.25
--- NOTE | 2020-07-14 13:29 | RAD REPORT ---
EXAM DESCRIPTION: RAD - Chest Single View - 07/14/2020 1:17 pm CLINICAL HISTORY: DYSPNEA COMPARISON: July 11 CT chest study, July 01 portable chest TECHNIQUE: AP portable chest image was obtained 07/14/2020 1:17 pm . FINDINGS: No new mass or consolidation. Right lung base is better aerated than on the portable exami nation. No new or enlarging pleural effusions. Heart and vasculature are normal. No pneumothorax. Aga in noted are multiple bilateral pulmonary nodules. Trachea is midline. No acute bony abnormality seen . No acute aortic findings suspected. IMPRESSION: Chronic interstitial lung disease in multiple pulmonary nodules. . Chest findings are slightly improved from July 01 imaging.
[2020-07-14] MEDS ORDERED: PIPER/TAZO/NS 3.375gm 3.375 GM/100 ML BAG ONE (13:43)
[2020-07-14] MEDS ORDERED: LIDOCAINE VISCOUS 2% SOLN 15 ML UDC ONE (13:43)
[2020-07-14 13:45] LABS: Albumin 2.6 g/dL (3.4-5.0); Bilirubin Direct 0.2 mg/dL (0-0.2); Bilirubin Total 0.5 mg/dL (0.2-1.0); Magnesium 1.6 mg/dL (1.8-2.4); Potassium 3.6 mmol/L (3.5-5.1); Protein, Total 6.4 g/dL (6.4-8.2); Thyroid Stimulating Hormone 2.3 uIU/mL (0.360-3.740); Troponin (Emerg Dept Use Only) 0.09 ng/mL (0.0-0.045)
[2020-07-14 13:50] LABS: Blood Morphology Comment NOT SEEN (NOT SEEN); Platelet Estimate ADEQ
--- NOTE | 2020-07-14 13:56 | EDPHYS ---
Physician Documentation [facility] Name: Dashawn Fernandes Jr Age: 74 yrs Sex: Male : 1945 Arrival Date: 07/14/2020 Time: 12:50 Bed 5 Private MD: ED Physician Tristan Awad HPI: 07/14 13:05 This 74 yrs old Male presents to ER via EMS with complaints of Shortness Of maynor Breath. 13:05 This 74 yrs old Male presents to ER via EMS with complaints of Shortness Of maynor Breath. 13:05 The patient has shortness of breath at rest, with light activity. Onset: The maynor symptoms/episode began/occurred just prior to arrival. Duration: The symptoms are continuous, and are steadily getting worse. The patient's shortness of breath has no apparent modifying factors. Associated signs and symptoms: The patient has no apparent associated signs or symptoms. Severity of symptoms: At their worst the symptoms were mild in the emergency department the symptoms are unchanged. The patient has not experienced similar symptoms in the past. Historical: - Allergies: 12:53 No Known Allergies; tw2 - Home Meds: 12:53 tamsulosin 0.4 mg Oral cp24 1 cap once daily [Active]; simvastatin 40 mg Oral tab 1 tab tw2 once daily [Active]; metformin 1,000 mg Oral tab 1 tab 2 times per day [Active]; metoprolol tartrate 50 mg Oral tab 2.5 tab 2 times per day [Active]; niacin 500 mg Oral tab 2 tabs daily [Active]; Januvia 25 mg Oral tab 1 tablet daily [Active]; aspirin 81 mg Oral chew 1 tab once daily [Active]; - PMHx: 12:53 BPH; Diabetes - NIDDM; Hypertension; Myocardial infarction; tw2 - PSHx: 12:53 Heart stents; tw2 - Immunization history:: Adult Immunizations. - Social history:: Smoking status: . - Family history:: not pertinent. ROS: 13:05 Constitutional: Negative for fever, chills, and weight loss, Eyes: Negative for injury, maynor pain, redness, and discharge, ENT: Negative for injury, pain, and discharge, Neck: Negative for injury, pain, and swelling, Respiratory: Negative for shortness of breath, cough, wheezing, and pleuritic chest pain, Abdomen/GI: Negative for abdominal pain, nausea, vomiting, diarrhea, and constipation, Back: Negative for injury and pain, : Negative for injury, bleeding, discharge, and swelling, MS/Extremity: Negative for injury and deformity, Skin: Negative for injury, rash, and discoloration, Neuro: Negative for headache, weakness, numbness, tingling, and seizure, Psych: Negative for depression, anxiety, suicide ideation, homicidal ideation, and hallucinations, Allergy/Immunology: Negative for hives, rash, and allergies, Endocrine: Negative for neck swelling, polydipsia, polyuria, polyphagia, and marked weight changes, Hematologic/Lymphatic: Negative for swollen nodes, abnormal bleeding, and unusual bruising. 13:05 Cardiovascular: Positive for palpitations. 13:05 Respiratory: Positive for shortness of breath. Exam: 13:05 Constitutional: This is a well developed, well nourished patient who is awake, alert, maynor and in no acute distress. Head/Face: Normocephalic, atraumatic. Eyes: Pupils equal round and reactive to light, extra-ocular motions intact. Lids and lashes normal. Conjunctiva and sclera are non-icteric and not injected. Cornea within normal limits. Periorbital areas with no swelling, redness, or edema. ENT: Nares patent. No nasal discharge, no septal abnormalities noted. Tympanic membranes are normal and external auditory canals are clear. Oropharynx with no redness, swelling, or masses, exudates, or evidence of obstruction, uvula midline. Mucous membranes moist. Neck: Trachea midline, no thyromegaly or masses palpated, and no cervical lymphadenopathy. Supple, full range of motion without nuchal rigidity, or vertebral point tenderness. No Meningismus. Chest/axilla: Normal chest wall appearance and motion. Nontender with no deformity. No lesions are appreciated. Respiratory: Lungs have equal breath sounds bilaterally, clear to auscultation and percussion. No rales, rhonchi or wheezes noted. No increased work of breathing, no retractions or nasal flaring. Abdomen/GI: Soft, non-tender, with normal bowel sounds. No distension or tympany. No guarding or rebound. No evidence of tenderness throughout. Back: No spinal tenderness. No costovertebral tenderness. Full range of motion. Male : Normal genitalia with no discharge or lesions. Skin: Warm, dry with normal turgor. Normal color with no rashes, no lesions, and no evidence of cellulitis. MS/ Extremity: Pulses equal, no cyanosis. Neurovascular intact. Full, normal range of motion. Neuro: Awake and alert, GCS 15, oriented to person, place, time, and situation. Cranial nerves II-XII grossly intact. Motor strength 5/5 in all extremities. Sensory grossly intact. Cerebellar exam normal. Normal gait. Psych: Awake, alert, with orientation to person, place and time. Behavior, mood, and affect are within normal limits. 13:05 Cardiovascular: Rate: tachycardic, Rhythm: regular, Pulses: Pulses are 4+ in bilateral radial, brachial, femoral, popliteal, posterior tibial and and dorsalis pedis arteries.. Heart sounds: normal, Edema: 3+ edema to level of left midcalf and right midcalf, JVD: is not appreciated. Vital Signs: 12:50 BP 133 / 65; Pulse 206; Resp 28; Temp 98.2(TE); Pulse Ox 100% on R/A; Weight 83.91 kg tw2 (R); Height 6 ft. 1 in. (185.42 cm); Pain 0/10; 12:58 BP 128 / 70; Pulse 146; Pulse Ox 99% on R/A; em 13:13 BP 99 / 73; Pulse 113; Resp 24; Pulse Ox 100% on 2 lpm NC; em 13:44 BP 114 / 85; Pulse 115; Resp 20; Pulse Ox 100% on 2 lpm NC; tw2 14:32 BP 118 / 70; Pulse 105; Resp 20; Pulse Ox 99% on 2 lpm NC; em 15:45 BP 117 / 61; Pulse 109; Resp 18; Pulse Ox 100% on 2 lpm NC; em 16:33 BP 124 / 74; Pulse 103; Resp 18; Pulse Ox 100% on 2 lpm NC; em 12:50 Body Mass Index 24.41 (83.91 kg, 185.42 cm) tw2 12:50 provider notified and at bedside, ekg on pt at this time. tw2 MDM: 12:59 Patient medically screened. maynor 13:07 Differential diagnosis: Anemia Anxiety Reaction pneumonia, pulmonary edema, reactive maynor airway disease. Antibiotic administration: Not indicated. The patient's Wells Deep Vein Thrombosis Score was calculated as follows: Total Score: 0-2 Pts- Low Risk. The patient's pulmonary embolism risk score was calculated as follows: Total Score: 0-2 points. This patient was found to be at low risk for a pulmonary embolism by using the Well's assessment criteria. Immunization status: Pneumococcal vaccine: Influenza vaccine: Data reviewed: vital signs, nurses notes, lab test result(s), EKG, radiologic studies, plain films. Data interpreted: night monitor: rate is 165 beats/min, rhythm is regular. Data interpreted: Pulse oximetry: on room air is 99 %. Test interpretation: by ED physician or midlevel provider: ECG, plain radiologic studies. Counseling: I had a detailed discussion with the patient and/or guardian regarding: the historical points, exam findings, and any diagnostic results supporting the discharge/admit diagnosis, lab results, radiology results, the need for outpatient follow up. 07/14 12:57 Order name: Basic Metabolic Panel; Complete Time: 13:55 [facility] 07/14 12:57 Order name: CBC with Diff; Complete Time: 13:55 [facility] 07/14 12:57 Order name: LFT's; Complete Time: 13:55 [facility] 07/14 12:57 Order name: Magnesium; Complete Time: 13:55 [facility] 07/14 12:57 Order name: NT PRO-BNP; Complete Time: 13:55 [facility] 07/14 12:57 Order name: PT-INR; Complete Time: 13:42 [facility] 07/14 12:57 Order name: Troponin (emerg Dept Use Only); Complete Time: 13:55 [facility] 07/14 12:57 Order name: TSH; Complete Time: 13:56 [facility] 07/14 12:57 Order name: Blood Culture Adult (2) [facility] 07/14 12:57 Order name: Urine Culture [facility] 07/14 12:57 Order name: Procalcitonin; Complete Time: 14:20 [facility] 07/14 12:57 Order name: Lactate; Complete Time: 13:42 [facility] 07/14 13:14 Order name: Glucose, Ancillary Testing; Complete Time: 13:28 [facility] 07/14 13:25 Order name: Manual Differential; Complete Time: 13:55 [facility] 07/14 12:57 Order name: XRAY Chest (1 view); Complete Time: 13:42 [facility] 07/14 13:44 Order name: Chest Abdomen Pelvis Wo Con CT; Complete Time: 14:20 [place] 07/14 13:55 Order name: COVID-19 ss 07/14 14:12 Order name: T4 Free; Complete Time: 15:26 EDMS 07/14 14:13 Order name: Magnesium EDMS 07/14 14:13 Order name: Phosphorus EDMS 07/14 14:22 Order name: Urine Dipstick--Ancillary (enter results); Complete Time: 14:43 eb 07/14 12:57 Order name: EKG; Complete Time: 12:58 [place] 07/14 12:57 Order name: Cardiac monitoring; Complete Time: 13:04 [place] 07/14 12:57 Order name: EKG - Nurse/Tech; Complete Time: 13:02 [place] 07/14 12:57 Order name: IV Saline Lock; Complete Time: 13:04 [place] 07/14 12:57 Order name: Labs collected and sent; Complete Time: 13:04 [facility] 07/14 12:57 Order name: O2 Per Protocol; Complete Time: 13:04 [place] 07/14 12:57 Order name: O2 Sat Monitoring; Complete Time: 13:05 [place] 07/14 12:57 Order name: Urine Dipstick-Ancillary (obtain specimen); Complete Time: 14:24 [facility] 07/14 13:27 Order name: Sotelo; Complete Time: 13:31 [place] 07/14 14:32 Order name: Abdomen 1 View (KUB) XRAY [facility] 07/14 15:35 Order name: RAD EDUT Administered Medications: 12:57 Drug: Digoxin 0.5 mg Route: IVP; Site: right forearm; em 13:15 Follow up: Response: No adverse reaction; Cardiac rhythm changed em 12:59 Drug: Lopressor 2.5 mg Route: IVP; Site: right forearm; em 13:15 Follow up: Response: No adverse reaction; Cardiac rhythm changed em 13:01 Drug: Lopressor 2.5 mg Route: IVP; Site: right forearm; em 13:15 Follow up: Response: No adverse reaction; Marked relief of symptoms; Cardiac rhythm em changed 13:13 Drug: NS 0.9% 500 ml Route: IV; Rate: bolus; Site: right forearm; em 14:03 Follow up: IV Status: Completed infusion; IV Intake: 500ml em 13:13 Drug: Pepcid 20 mg Route: IVP; Site: right forearm; em 14:01 Follow up: Response: No adverse reaction em 13:53 Drug: Zosyn 3.375 grams Route: IVPB; Infused Over: 60 mins; Site: right forearm; em 15:40 Follow up: IV Status: Completed infusion; IV Intake: 100ml em 14:00 Not Given (Physician Discretion): Lopressor 2.5 mg IVP once; Hold for SBP <100 or HR em <60. 14:00 Not Given (Physician Discretion): Lopressor 2.5 mg IVP once; Hold for SBP <100 or HR em <60. 14:24 Drug: NS 0.9% 1000 ml Route: IV; Rate: 125 ml/hr; Site: right forearm; em 14:24 Drug: NS 0.9% 1000 ml Route: IV; Rate: 1 bolus; Site: right forearm; em 15:14 Drug: Meropenem 1 grams Route: IV; Rate: per protocol; Site: right forearm; em 17:03 Follow up: Response: No adverse reaction; IV Status: Completed infusion; IV Intake: em 100ml 15:15 Drug: Magnesium Sulfate 1 grams Route: IVPB; Infused Over: 1 hrs; Site: left em antecubital; 17:02 Follow up: Response: No adverse reaction; IV Status: Completed infusion; IV Intake: em 100ml Disposition: 07/14/20 14:40 Transfer ordered to [facility]. 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 - Reason for transfer: Higher level of care. - Accepting physician is to [facility], [facility]. - Condition is Fair. - Problem is new. - Symptoms have improved. Signatures: Dispatcher [employer] Tristan Dozier MD MD cha Munoz, Edgar, RN RN em Nelia Peterson RN RN tw2 Corrections: (The following items were deleted from the chart) 14:02 13:55 Hospitalization Ordered by Prince Carmen HIGGINS for Inpatient Admission. Preliminary maynor diagnosis is Dyspnea; Atrial fibrillation and flutter - with rvr; Type 2 diabetes mellitus; Supraventricular tachycardia; Elevated white blood cell count. Bed requested for Telemetry/MedSurg (Inpatient). Status is Inpatient Admission. Condition is Fair. Problem is new. Symptoms have improved. maynor 14:06 14:02 07/14/2020 13:55 Hospitalization Ordered by Prince Carmen HIGGINS for Inpatient maynor Admission. Preliminary diagnosis is Dyspnea; Atrial fibrillation and flutter - with rvr; Type 2 diabetes mellitus; Supraventricular tachycardia; Elevated white blood cell count; Acute kidney failure - on chronic; Anemia, unspecified. Bed requested for Telemetry/MedSurg (Inpatient). Status is Inpatient Admission. Condition is Fair. Problem is new. Symptoms have improved. maynor 14:22 14:13 Blood Culture ordered. [facility] EDMS 14:26 14:12 Abdomen ordered. [facility] EDUT 14:33 14:06 07/14/2020 13:55 Hospitalization Ordered by Prince Carmen HIGGINS for Inpatient maynor Admission. Preliminary diagnosis is Dyspnea; Atrial fibrillation and flutter - with rvr; Type 2 diabetes mellitus; Supraventricular tachycardia; Elevated white blood cell count; Acute kidney failure - on chronic; Anemia, unspecified. Bed requested for Intensive Care Unit. Status is Inpatient Admission. Condition is Fair. Problem is new. Symptoms have improved. maynor 14:45 14:40 07/14/2020 14:40 Transfer ordered to [facility]. 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 Reason for transfer: Higher level of care. Accepting physician is to [facility]. Condition is Fair. Problem is new. Symptoms have improved. maynor 17:04 14:45 07/14/2020 14:40 Transfer ordered to [facility]. 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 Reason for transfer: Higher level of care. Accepting physician is to [facility]. Condition is Fair. Problem is new. Symptoms have improved. maynor
--- NOTE | 2020-07-14 13:56 | ER ---
Nurse's Notes [facility] Name: Dashawn Fernandes Jr Age: 74 yrs Sex: Male : 1945 Arrival Date: 07/14/2020 Time: 12:50 Bed 5 Private MD: Diagnosis: Atrial fibrillation and flutter;Supraventricular tachycardia;Elevated white blood cell count-CML;Urinary tract infection, site not specified-ESBL;Anemia, unspecified;Hydronephrosis with ureteral stricture, not elsewhere classified-SEVERE LEFT, MID-URETER Presentation: 07/14 12:50 Chief complaint: EMS states: pt from home called for SOB, sitting in chair, 96% RA, pt tw2 is shaking and doesn't know why, he is a poor historian, he was here 2 days ago, we gave A\T\A, what we know of history is cardiac stents and DM. Coronavirus screen: difficulty breathing, Client presents with at least one sign or symptom that may indicate coronavirus-19. Standard/surgical mask placed on the client. Ebola Screen: Patient denies travel to an Ebola-affected area in the 21 days before illness onset. Initial Sepsis Screen: Does the patient meet any 2 criteria? RR > 20 per min. HR > 90 bpm. Does the patient have a suspected source of infection? No. Patient's initial sepsis screen is negative. Risk Assessment: Do you want to hurt yourself or someone else? Patient reports no desire to harm self or others. Onset of symptoms was July 14, 2020. 12:50 Acuity: ADELA 2 tw2 12:50 Method Of Arrival: EMS: [facility] tw2 Historical: - Allergies: 12:53 No Known Allergies; tw2 - Home Meds: 12:53 tamsulosin 0.4 mg Oral cp24 1 cap once daily [Active]; simvastatin 40 mg Oral tab 1 tab tw2 once daily [Active]; metformin 1,000 mg Oral tab 1 tab 2 times per day [Active]; metoprolol tartrate 50 mg Oral tab 2.5 tab 2 times per day [Active]; niacin 500 mg Oral tab 2 tabs daily [Active]; Januvia 25 mg Oral tab 1 tablet daily [Active]; aspirin 81 mg Oral chew 1 tab once daily [Active]; - PMHx: 12:53 BPH; Diabetes - NIDDM; Hypertension; Myocardial infarction; tw2 - PSHx: 12:53 Heart stents; tw2 - Immunization history:: Adult Immunizations. - Social history:: Smoking status: . - Family history:: not pertinent. Screenin:05 Abuse screen: Denies threats or abuse. Nutritional screening: No deficits noted. em Tuberculosis screening: No symptoms or risk factors identified. Fall Risk None identified. Assessment: 12:50 General: Appears uncomfortable, Behavior is calm, cooperative. Pain: Denies pain. em Neuro: Level of Consciousness is awake, alert, obeys commands, Oriented to person, place, time, situation, Appropriate for age. Cardiovascular: Capillary refill < 3 seconds Patient's skin is warm and dry. Rhythm is SVT. Respiratory: Airway is patent Respiratory effort is labored, Respiratory pattern is regular, Breath sounds are clear bilaterally. Derm: Skin is intact, is healthy with good turgor, Skin is pink, warm \T\ dry. Musculoskeletal: Capillary refill < 3 seconds, Range of motion: intact in all extremities. 13:30 Reassessment: Patient appears in no apparent distress at this time. Patient and/or em family updated on plan of care and expected duration. Pain level reassessed. Patient is alert, oriented x 3, equal unlabored respirations, skin warm/dry/pink. Patient states feeling better. Patient states symptoms have improved. 14:30 Reassessment: Patient appears in no apparent distress at this time. Patient and/or em family updated on plan of care and expected duration. Pain level reassessed. Patient is alert, oriented x 3, equal unlabored respirations, skin warm/dry/pink. 15:30 Reassessment: Patient appears in no apparent distress at this time. Patient and/or em family updated on plan of care and expected duration. Pain level reassessed. Patient is alert, oriented x 3, equal unlabored respirations, skin warm/dry/pink. 15:51 Reassessment: unable to give report at this time due to bed being cleaned. em 16:33 Reassessment: [facility] will return phone call to give report. em 16:56 Reassessment: report given to [facility]. em 17:31 Reassessment: report given to LURDES Dunham at [facility]. em Vital Signs: 12:50 BP 133 / 65; Pulse 206; Resp 28; Temp 98.2(TE); Pulse Ox 100% on R/A; Weight 83.91 kg tw2 (R); Height 6 ft. 1 in. (185.42 cm); Pain 0/10; 12:58 BP 128 / 70; Pulse 146; Pulse Ox 99% on R/A; em 13:13 BP 99 / 73; Pulse 113; Resp 24; Pulse Ox 100% on 2 lpm NC; em 13:44 BP 114 / 85; Pulse 115; Resp 20; Pulse Ox 100% on 2 lpm NC; tw2 14:32 BP 118 / 70; Pulse 105; Resp 20; Pulse Ox 99% on 2 lpm NC; em 15:45 BP 117 / 61; Pulse 109; Resp 18; Pulse Ox 100% on 2 lpm NC; em 16:33 BP 124 / 74; Pulse 103; Resp 18; Pulse Ox 100% on 2 lpm NC; em 12:50 Body Mass Index 24.41 (83.91 kg, 185.42 cm) tw2 12:50 provider notified and at bedside, ekg on pt at this time. tw2 ED Course: 12:50 Patient arrived in ED. tw2 12:52 Triage completed. tw2 12:52 Arm band placed on. tw2 12:52 Inserted saline lock: 20 gauge in right forearm, using aseptic technique. Blood ss collected. 12:53 Tristan Awad MD is Attending Physician. maynor 13:02 Inserted saline lock: 20 gauge in left antecubital area, using aseptic technique. Blood mt collected. 13:02 EKG done, by ED staff, reviewed by Tristan Awad MD. mt 13:03 Wil Vincent, RN is Primary Nurse. em 13:05 Patient has correct armband on for positive identification. Bed in low position. Call em light in reach. Side rails up X2. radiation monitor on. Pulse ox on. NIBP on. 13:18 XRAY Chest (1 view) In Process Unspecified. EDMS 13:52 Prince Morales MD is Hospitalizing Provider. maynor 14:00 Sotelo cath inserted, using sterile technique, 18 Fr., by ks, balloon inflated, urine em specimen collected. returned cloudy urine. Patient tolerated well. 14:03 Chest Abdomen Pelvis Wo Con CT In Process Unspecified. EDMS 14:07 CT completed. Patient tolerated procedure well. sw 14:[address] Awad with Jesi Murry from [facility] transfer eb center. 15:[address] Looney the hospitalist licensed tax consultant for [facility] with Dr. Awad for eb patient transfer consultation. 15:30 administrative approval given by Jesi Murry/ patient has been accepted to [facility] bed 1642/ Dr. Looney has accepted the patient in transfer/ report to be called to [phone]. 17:01 No provider procedures requiring assistance completed. Patient transferred, IV remains em in place. Administered Medications: 12:57 Drug: Digoxin 0.5 mg Route: IVP; Site: right forearm; em 13:15 Follow up: Response: No adverse reaction; Cardiac rhythm changed em 12:59 Drug: Lopressor 2.5 mg Route: IVP; Site: right forearm; em 13:15 Follow up: Response: No adverse reaction; Cardiac rhythm changed em 13:01 Drug: Lopressor 2.5 mg Route: IVP; Site: right forearm; em 13:15 Follow up: Response: No adverse reaction; Marked relief of symptoms; Cardiac rhythm em changed 13:13 Drug: NS 0.9% 500 ml Route: IV; Rate: bolus; Site: right forearm; em 14:03 Follow up: IV Status: Completed infusion; IV Intake: 500ml em 13:13 Drug: Pepcid 20 mg Route: IVP; Site: right forearm; em 14:01 Follow up: Response: No adverse reaction em 13:53 Drug: Zosyn 3.375 grams Route: IVPB; Infused Over: 60 mins; Site: right forearm; em 15:40 Follow up: IV Status: Completed infusion; IV Intake: 100ml em 14:00 Not Given (Physician Discretion): Lopressor 2.5 mg IVP once; Hold for SBP <100 or HR em <60. 14:00 Not Given (Physician Discretion): Lopressor 2.5 mg IVP once; Hold for SBP <100 or HR em <60. 14:24 Drug: NS 0.9% 1000 ml Route: IV; Rate: 125 ml/hr; Site: right forearm; em 14:24 Drug: NS 0.9% 1000 ml Route: IV; Rate: 1 bolus; Site: right forearm; em 15:14 Drug: Meropenem 1 grams Route: IV; Rate: per protocol; Site: right forearm; em 17:03 Follow up: Response: No adverse reaction; IV Status: Completed infusion; IV Intake: em 100ml 15:15 Drug: Magnesium Sulfate 1 grams Route: IVPB; Infused Over: 1 hrs; Site: left em antecubital; 17:02 Follow up: Response: No adverse reaction; IV Status: Completed infusion; IV Intake: em 100ml Intake: 14:03 IV: 500ml; Total: 500ml. em 15:40 IV: 100ml; Total: 600ml. em 17:02 IV: 100ml; Total: 700ml. em 17:03 IV: 100ml; Total: 800ml. em Outcome: 13:55 Decision to Hospitalize by Provider. [facility] 14:40 ER care complete, transfer ordered by . [facility] 17:01 Transferred by ground EMS to [facility], [facility], Transfer form completed. em X-rays sent w/ patient. 17:01 Condition: stable 17:01 Instructed on the need for transfer, Demonstrated understanding of instructions. 17:04 Patient left the ED. em Addendum: 07/17/2020 11:38 Addendum: Culture Results: Positive urine culture. Positive blood culture. Pt was a a5 transferred to [facility], results faxed to [facility] (spoke to Analisa at [facility], pt in Room 1609). Signatures: Dispatcher [employer] Tristan Dozier MD MD cha Munoz, Edgar, RN RN Laurita Payan, LURDES RN aa5 Remedios Russell RN RN Ligia Noyola Tara, RN RN 2 Wilmar [facility] Christy Baca
--- NOTE | 2020-07-14 14:14 | RAD REPORT ---
EXAM DESCRIPTION: CT - Chest Abd Pelvis Wo Con - 07/14/2020 2:03 pm CLINICAL HISTORY: Congestion;Abdominal distention COMPARISON: Thorax Wo Con dated 07/11/2020; Abdomen Pelvis Wo Contrast dated 07/01/2020 TECHNIQUE: Axial 5 millimeter thick images of the chest, abdomen and pelvis were obtained without IV contrast. No oral contrast administered. All CT scans are performed using dose optimization technique as appropriate and may include automated exposure control or mA/KV adjustment according to patient size. FINDINGS: Again noted are multiple variably sized pulmonary nodules with no change management coordinator the short in terval since July 11. No new mass or infiltrate. Right-sided pleural effusion is decreased. Pericar dial effusion has not changed. No pneumothorax or pleural effusion. No chest wall mass or abnormal a xillary lymphadenopathy seen. Mediastinal and hilar regions show no mass or lymphadenopathy. No sig nificant cardiac finding. The liver, spleen and pancreas show no new findings from July 01. Minimal stranding in the tip o f the pancreatic tail has not changed and is probably not acute. . Well filled gallbladder shows no acute finding. No biliary tree dilatation. Severe left-sided hydronephrosis extends to the mid ureter level with there is fibrotic soft tissue a nterior to the aorta. Right-sided ureteral stent has been placed since prior imaging. Right-sided hyd ronephrosis is less severe. Urinary bladder is contracted around a Sotelo catheter. No new adrenal fin ding. No dilated bowel loops or focal ball bowel wall thickening. No free air, free fluid or inflammatory stranding. No new mass or bulky lymphadenopathy. No significant bone or vascular finding. IMPRESSION: CT chest imaging shows multiple pulmonary nodules similar to July 11. No new finding. Severe left-sided hydronephrosis to the mid ureter level similar to July 11. Stent has been placed in the right collecting system decreasing the hydronephrosis seen previously. No emergent abdomen or pelvis finding. CT abdomen and pelvis imaging shows no significant or suspicious finding.
--- NOTE | 2020-07-14 14:17 | P.HP ---
Certification for Inpatient Patient admitted to: Inpatient With expected LOS: >2 Midnights Practitioner: I am a practitioner with admitting privileges, knowledge of patient current condition, hospital course, and medical plan of care. Services: Services provided to patient in accordance with Admission requirements found in Title 42 Section 412.3 of the Code of Federal Regulations Patient History Date of Service: 07/14/20 Allergies No Known Allergies Allergy (Verified 04/11/19 15:52) Home Medications: Simvastatin 40 mg PO BEDTIME 04/11/19 Tamsulosin [Flomax*] 0.4 mg PO DAILY 04/11/19 Aspirin [Jennifer Chewable Aspirin] 81 mg PO DAILY 05/10/20 Niacin 500 mg PO BID 05/10/20 Rivaroxaban [Xarelto] 20 mg PO DAILY 05/10/20 Amlodipine [Norvasc*] 10 mg PO DAILY #30 tab 05/11/20 Sitagliptin Phosphate [Januvia] 25 mg PO DAILY #30 tablet 05/11/20 Albuterol Sulfate [Proair Respiclick] 90 mcg IH PRN 06/29/20 Furosemide [Lasix*] 1 tab PO DAILY 06/29/20 Levalbuterol Tartrate [Levalbuterol Tartrate Hfa] 2 puff IH Q4H 06/29/20 Metformin HCl [Glucophage] 1 tab PO BID 06/29/20 Metoprolol Tartrate [Lopressor*] 1.5 tab PO BID 06/29/20 Fluticasone/Salmeterol [Advair 250-50 Diskus] 1 each IH BID 30 Days #60 blst.w.dev 07/08/20 Ciprofloxacin HCl [Cipro 500 MG Tablet] 500 mg PO BID #20 tab 07/12/20 - Past Medical/Surgical History Diabetic: Yes -: Diabetes mellitus type 2, non insulin dependent -: Hypertension -: CAD with prior stents -: Hyperlipidemia -: BPH -: Tobacco abuse -: 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 He currently lives by himself. He is independent. - Family History Mother -: Heart disease, Stroke Father -: Heart disease - Social History Alcohol use: No CD- Drugs: No Caffeine use: Yes Physical Examination - Studies Laboratory Data (last 24 hrs) 07/14/20 13:00: PT 14.7 H, INR 1.25 07/14/20 13:00: WBC 30.4 H* D, Hgb 9.5 L, Hct 28.5 L, Plt Count 383 07/14/20 13:00: Sodium 134 L, Potassium 3.6, BUN 35 H, Creatinine 2.12 H, Glucose 258 H, Magnesium 1.6 L D, Total Bilirubin 0.5, AST 32, ALT 84 H, Alkaline Phosphatase 143 H Assessment and Plan - Problems (Diagnosis) (1) Severe sepsis Status: Acute (2) Acute respiratory failure with hypoxia Status: Acute (3) COPD (chronic obstructive pulmonary disease) Status: Acute Qualifiers: COPD type: unspecified COPD Qualified Code(s): J44.9 - Chronic obstructive pulmonary disease, unspecified (4) Diabetes mellitus type 2 in obese Status: Acute (5) Elevated brain natriuretic peptide (BNP) level Status: Acute - Advance Directives Does patient have a Living Will: No Does patient have a Durable POA for Healthcare: No Physician Review Additional Text: Assessment 74 year old man with congestive HF, atrial fibrillation on systemic AC, CKD stage III
[2020-07-14 14:37] LABS: Urine Blood 3+ (NEG); Urine Glucose TRACE (NEG); Urine Protein 2+ (NEG); Urine pH 5.5 (5.0-7.0)
[2020-07-14] MEDS ORDERED: Meropenem 1,000 MG in NA CHLORIDE 0.9% 100 ML IV ONE (15:00)
[2020-07-14] MEDS ORDERED: MAGNESIUM SULFATE 1 gm IVPB 1 GM/100 ML BAG IV ONE (15:10)
--- NOTE | 2020-07-14 15:33 | RAD REPORT ---
EXAM DESCRIPTION: RAD - Abdomen 1 View (KUB) - 07/14/2020 3:12 pm CLINICAL HISTORY: HYDRONEPHROSIS COMPARISON: Chest Abd Pelvis Wo Con dated 07/14/2020 FINDINGS: Bowel gas pattern is non-specific. No bowel obstruction, free air or pneumatosis. Pigtail stent is in place in the right collecting system. Stent deviates to the midline at the mid ureter le lety. 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 Multiple phleboliths are present. Lower lumbar d egenerative changes are present. Vascular calcifications are seen. IMPRESSION: No obstruction, free air or other emergent KUB findings. Right pigtail stent in place. Stent deviates to the midline at the mid ureter level. 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
[2020-07-14 17:20] VITALS: TEMP 98.2
[2020-07-14 17:28] VITALS: O2SAT 100
[2020-07-14 17:30] VITALS: BP 124/74
--- NOTE | 2020-07-16 11:14 | EKG ---
Test Date: 2020-07-14 Test Time: 12:49:03 Fraternity Adviser: KELLY MEASUREMENT RESULTS: Intervals: Rate: 146 NJ: 146 QRSD: 78 QT: 280 QTc: 436 [place]: P: 93 NJ: 146 QRS: 8 T: 65 INTERPRETIVE STATEMENTS: Sinus tachycardia with occasional and consecutive premature ventricular complexes and fusion complexes with junctional escape c Cannot rule out Anterior infarct, age undetermined Abnormal ECG Compared to ECG 06/29/2020 12:53:59 Fusion complex(es) now present Ventricular premature complex(es) now present Sinus rhythm no longer present Myocardial infarct finding still present Electronically Signed On 07-16-20 11:13:41 CDT by Andrew Jackson
--- NOTE | 2020-07-17 07:48 | EKG ---
Test Date: 2020-07-14 Test Time: 12:51:31 Shelf Drier Operator: KELLY MEASUREMENT RESULTS: Intervals: Rate: 211 GA: QRSD: 76 QT: 230 QTc: 431 [place]: P: GA: QRS: 26 T: 162 INTERPRETIVE STATEMENTS: Supraventricular tachycardia Cannot rule out Anterior infarct, age undetermined ST & T wave abnormality, consider lateral ischemia Abnormal ECG Compared to ECG 07/14/2020 12:49:03 ST (T wave) deviation now present Possible ischemia now present Sinus tachycardia no longer present Fusion complex(es) no longer present Ventricular premature complex(es) no longer present Myocardial infarct finding still present Electronically Signed On 07-17-20 07:44:27 CDT by Andrew Jackson
--- NOTE | 2020-07-17 07:48 | EKG ---
Test Date: 2020-07-14 Test Time: 12:59:55 Rehabilitation Aide/Scheduler: KELLY MEASUREMENT RESULTS: Intervals: Rate: 118 MD: 180 QRSD: 90 QT: 296 QTc: 414 [place]: P: 72 MD: 180 QRS: 7 T: 85 INTERPRETIVE STATEMENTS: Sinus tachycardia with premature atrial complexes Possible Inferior infarct, age undetermined Anteroseptal infarct, age undetermined Abnormal ECG Compared to ECG 07/14/2020 12:51:31 Atrial premature complex(es) now present Supraventricular tachycardia no longer present ST (T wave) deviation no longer present Possible ischemia no longer present Myocardial infarct finding still present Electronically Signed On 07-17-20 07:44:19 CDT by Andrew Jackson
== END 2020-07-14 17:04 | disposition short-term general hospital (02) ==
LOC: ER 12:47 → ERHOLD 14:08 → UNDOADMIN 14:08 → ER 17:04
DX: I48.91 Unspecified atrial fibrillation (principal); I48.92 Unspecified atrial flutter; I47.1 Supraventricular tachycardia; N39.0 Urinary tract infection, site not specified; D64.9 Anemia, unspecified; N13.1 Hydronephrosis with ureteral stricture, not elsewhere classified; I10 Essential (primary) hypertension; E11.9 Type 2 diabetes mellitus without complications; Z79.82 Long term (current) use of aspirin; Z95.818 Presence of other cardiac implants and grafts
CPT/HCPCS: 93005 ×3; 87040 ×2; 87088; 85025; 87086; 80048; 36415; 83735; 87205 ×4; 85610; 82947; 80076; 83605; 84443; 87077 ×3; 87186 ×3; 81003; 84484; 84439; 84145; 83880; 71250; 74176; 74018; 71045; 51702; 99285; U0002; J3475; J2543; J2185; J7030 ×2; J0153